=== PATIENT | male | born 1950 | race American Indian/Alaskan Native ===

== ENCOUNTER 2018-06-14 10:54 | Inpatient (IN) | payer BC, MEDICARE ==
--- NOTE | 2018-06-14 12:54 | Emergency Department Report ---
ED General Adult HPI - General Chief complaint: Weakness Stated complaint: GENERAL WEAKNESS Time Seen by Provider: 06/14/18 11:43 Source: patient, EMS Mode of arrival: Stretcher Limitations: Physical Limitation - History of Present Illness Initial comments: Patient presents to the emergency department with a chief complaint of right- sided weakness that started on Thursday evening. Patient also has some slurred speech. -: Sudden Severity scale (0 -10): 0 Consistency: constant Improves with: none Worsens with: none Associated Symptoms: denies other symptoms Treatments Prior to Arrival: none - Related Data Allergies Allergy/AdvReac Type Severity Reaction Status Date / Time No Known Allergies Allergy Unverified 06/14/18 11:14 ED Review of Systems ROS: Stated complaint: GENERAL WEAKNESS Other details as noted in HPI Comment: All other systems reviewed and negative Constitutional: denies: chills, fever Eyes: denies: eye pain, eye discharge, vision change ENT: denies: ear pain, throat pain Respiratory: denies: cough, shortness of breath, wheezing Cardiovascular: denies: chest pain, palpitations Endocrine: no symptoms reported Gastrointestinal: denies: abdominal pain, nausea, diarrhea Genitourinary: denies: urgency, dysuria Musculoskeletal: denies: back pain, joint swelling, arthralgia Skin: denies: rash, lesions Neurological: weakness. denies: headache, paresthesias Psychiatric: denies: anxiety, depression Hematological/Lymphatic: denies: easy bleeding, easy bruising ED Past Medical Hx - Past Medical History Previous Medical History?: Yes Hx Diabetes: Yes - Surgical History Past Surgical History?: Yes Additional Surgical History: Left BKA - Social History Smoking Status: Never Smoker Substance Use Type: Alcohol ED Physical Exam - General Limitations: Physical Limitation General appearance: alert, in no apparent distress, other (slurred speech ) - Head Head exam: Present: atraumatic, normocephalic - Eye Eye exam: Present: normal appearance, PERRL, EOMI - ENT ENT exam: Present: mucous membranes moist - Neck Neck exam: Present: normal inspection - Respiratory Respiratory exam: Present: normal lung sounds bilaterally. Absent: respiratory distress, wheezes, rales - Cardiovascular Cardiovascular Exam: Present: regular rate, normal rhythm. Absent: systolic murmur, diastolic murmur, rubs, gallop - GI/Abdominal GI/Abdominal exam: Present: soft, normal bowel sounds. Absent: distended, tenderness - Rectal Rectal exam: Present: deferred - Extremities Exam Extremities exam: Present: other (left BKA) - Back Exam Back exam: Present: normal inspection - Neurological Exam Neurological exam: Present: alert, oriented X3, other (4/5 strength of the right upper and lower extremities). Absent: motor sensory deficit - Psychiatric Psychiatric exam: Present: normal affect, normal mood - Skin Skin exam: Present: warm, dry, intact, normal color. Absent: rash ED Course Vital Signs 06/14/18 06/14/18 06/14/18 11:11 11:17 11:31 Temperature 98.2 F Pulse Rate 65 61 59 L Respiratory 18 17 13 Rate Blood Pressure 136/68 136/67 148/50 O2 Sat by Pulse 98 97 96 Oximetry 06/14/18 06/14/18 06/14/18 12:01 12:31 13:29 Temperature Pulse Rate 62 68 67 Respiratory 17 19 11 L Rate Blood Pressure 158/52 167/60 148/50 O2 Sat by Pulse 94 98 Oximetry 06/14/18 06/14/18 13:31 14:00 Temperature Pulse Rate 69 65 Respiratory 14 15 Rate Blood Pressure 157/113 O2 Sat by Pulse Oximetry ED Medical Decision Making - Lab Data Result diagrams: 06/14/18 13:09 06/14/18 13:12 Lab Results 06/14/18 06/14/18 06/14/18 Range/Units 13:09 13:09 13:12 WBC 7.6 (4.5-11.0) K/mm3 RBC 4.54 (3.65-5.03) M/mm3 Hgb 14.9 (11.8-15.2) gm/dl Hct 44.2 (35.5-45.6) % MCV 97 H (84-94) fl MCH 33 H (28-32) pg MCHC 34 (32-34) % RDW 12.7 L (13.2-15.2) % Plt Count 177 (140-440) K/mm3 Lymph % (Auto) 28.3 (13.4-35.0) % [place] % (Auto) 7.2 (0.0-7.3) % Eos % (Auto) 1.4 (0.0-4.3) % Baso % (Auto) 1.0 (0.0-1.8) % Lymph # 2.1 (1.2-5.4) K/mm3 [place] # 0.5 (0.0-0.8) K/mm3 Eos # 0.1 (0.0-0.4) K/mm3 Baso # 0.1 (0.0-0.1) K/mm3 Seg Neutrophils % 62.1 (40.0-70.0) % Seg Neutrophils # 4.7 (1.8-7.7) K/mm3 PT 13.8 (12.2-14.9) Sec. INR 1.00 (0.87-1.13) APTT 24.2 (24.2-36.6) Sec. Sodium (137-145) mmol/L Potassium (3.6-5.0) mmol/L Chloride (98-107) mmol/L Carbon Dioxide (22-30) mmol/L Anion Gap mmol/L BUN (9-20) mg/dL Creatinine (0.8-1.5) mg/dL Estimated GFR ml/min BUN/Creatinine Ratio % Glucose (75-100) mg/dL Calcium (8.4-10.2) mg/dL Total Bilirubin (0.1-1.2) mg/dL AST (5-40) units/L ALT (7-56) units/L Alkaline Phosphatase (35-129) units/L NT-Pro-B Natriuret Pep (0-900) pg/mL Total Protein (6.3-8.2) g/dL Albumin (3.9-5) g/dL Albumin/Globulin Ratio % Urine Color Yellow (Yellow) Urine Turbidity Slightly-cloudy (Clear) Urine pH 5.0 (5.0-7.0) Ur Specific [place] 1.022 (1.003-1.030) Urine Protein 100 mg/dl (Negative) mg/dL Urine Glucose (UA) >=500 (Negative) mg/dL Urine Ketones Tr (Negative) mg/dL Urine Blood Neg (Negative) Urine Nitrite Neg (Negative) Urine Bilirubin Neg (Negative) Urine Urobilinogen 2.0 (<2.0) mg/dL Ur Leukocyte Esterase Sm (Negative) Urine WBC (Auto) 20.0 H (0.0-6.0) /HPF Urine RBC (Auto) < 1.0 (0.0-6.0) /HPF Urine Bacteria (Auto) 1+ (Negative) /HPF Urine Mucus Few /HPF 06/14/18 06/14/18 Range/Units 13:12 13:12 WBC (4.5-11.0) K/mm3 RBC (3.65-5.03) M/mm3 Hgb (11.8-15.2) gm/dl Hct (35.5-45.6) % MCV (84-94) fl MCH (28-32) pg MCHC (32-34) % RDW (13.2-15.2) % Plt Count (140-440) K/mm3 Lymph % (Auto) (13.4-35.0) % [place] % (Auto) (0.0-7.3) % Eos % (Auto) (0.0-4.3) % Baso % (Auto) (0.0-1.8) % Lymph # (1.2-5.4) K/mm3 [place] # (0.0-0.8) K/mm3 Eos # (0.0-0.4) K/mm3 Baso # (0.0-0.1) K/mm3 Seg Neutrophils % (40.0-70.0) % Seg Neutrophils # (1.8-7.7) K/mm3 PT (12.2-14.9) Sec. INR (0.87-1.13) APTT (24.2-36.6) Sec. Sodium 136 L (137-145) mmol/L Potassium 4.3 (3.6-5.0) mmol/L Chloride 99.2 (98-107) mmol/L Carbon Dioxide 26 (22-30) mmol/L Anion Gap 15 mmol/L BUN 14 (9-20) mg/dL Creatinine 1.3 (0.8-1.5) mg/dL Estimated GFR > 60 ml/min BUN/Creatinine Ratio 11 % Glucose 344 H (75-100) mg/dL Calcium 9.2 (8.4-10.2) mg/dL Total Bilirubin 1.00 (0.1-1.2) mg/dL AST 13 (5-40) units/L ALT 15 (7-56) units/L Alkaline Phosphatase 82 (35-129) units/L NT-Pro-B Natriuret Pep 250.3 (0-900) pg/mL Total Protein 7.5 (6.3-8.2) g/dL Albumin 3.8 L (3.9-5) g/dL Albumin/Globulin Ratio 1.0 % Urine Color (Yellow) Urine Turbidity (Clear) Urine pH (5.0-7.0) Ur Specific [place] (1.003-1.030) Urine Protein (Negative) mg/dL Urine Glucose (UA) (Negative) mg/dL Urine Ketones (Negative) mg/dL Urine Blood (Negative) Urine Nitrite (Negative) Urine Bilirubin (Negative) Urine Urobilinogen (<2.0) mg/dL Ur Leukocyte Esterase (Negative) Urine WBC (Auto) (0.0-6.0) /HPF Urine RBC (Auto) (0.0-6.0) /HPF Urine Bacteria (Auto) (Negative) /HPF Urine Mucus /HPF - EKG Data -: EKG Interpreted by Me EKG shows normal: sinus rhythm Rate: normal - Radiology Data Radiology results: report reviewed Discussed results with patient Critical care attestation.: If time is entered above; I have spent that time in minutes in the direct care of this critically ill patient, excluding procedure time. ED Disposition Clinical Impression: Weakness, Slurred speech Disposition: 09 OP ADMIT IP TO THIS HOSP Is pt being admited?: Yes Does the pt Need Aspirin: No Condition: Fair Referrals: PRIMARY CARE, [Referring] - 3-5 Days - Assessment Assessment Interval: Baseline - Level of Consciousness 1a. Level of Consciousness: alert/keenly responsive - LOC Questions 1b. LOC Questions: answers both correctly - LOC Command 1c. LOC Commands: performs tasks correctly - Best Gaze 2. Best Gaze: normal - Visual 3. Visual: no visual loss - Facial Palsy 4. Facial Palsy: normal symmetrical movement - Motor Arm 5a. Motor Arm Left: no drift 5b. Motor Arm Right: no drift - Motor Leg 6a. Motor Leg Left: no drift 6b. Motor Leg Right: no drift - Limb Ataxia 7. Limb Ataxia: absent - Sensory 8. Sensory: normal - Best Language 9. Best Language: mild/moderate aphasia - Dysarthria 10. Dysarthria: mild/moderate dysarthria - Extinction and Inattention 11. Extinction/Inattention: no abnormality - Scoring Total Score: 2 Stroke Severity: Minor Stroke
[2018-06-14 13:22] LABS: Basophils # (Auto) 0.1 K/mm3 (0.0-0.1); Eosinophils # (Auto) 0.1 K/mm3 (0.0-0.4); Eosinophils % (Auto) 1.4 % (0.0-4.3); Hematocrit 44.2 % (35.5-45.6); Hemoglobin 14.9 gm/dl (11.8-15.2); Lymphocytes # (Auto) 2.1 K/mm3 (1.2-5.4); Lymphocytes % (Auto) 28.3 % (13.4-35.0); Mean Corpuscular HGB Conc 34 % (32-34); Mean Corpuscular Volume 97 fl (84-94); Monocytes # (Auto) 0.5 K/mm3 (0.0-0.8); Monocytes % (Auto) 7.2 % (0.0-7.3); Platelet Count 177 K/mm3 (140-440); Red Blood Count 4.54 M/mm3 (3.65-5.03); Red Cell Distribution Width 12.7 % (13.2-15.2)
[2018-06-14 13:31] LABS: Bacteria,Urine 1+ /HPF (Negative); Bilirubin,Urine NEG (Negative); Blood,Urine NEG (Negative); Color,Urine Yellow (Yellow); Mucus,Urine FEW /HPF; RBC,Urine < 1.0 /HPF (0.0-6.0)
[2018-06-14 13:32] LABS: Partial Thromboplastin Time 24.2 Sec. (24.2-36.6)
[2018-06-14 13:37] LABS: Alanine Aminotransferase 15 units/L (7-56); Albumin 3.8 g/dL (3.9-5); BUN/Creatinine Ratio 11; Blood Urea Nitrogen 14 mg/dL (9-20); Calcium 9.2 mg/dL (8.4-10.2); Hemolysis Index 4
--- NOTE | 2018-06-14 14:03 | XRay Report ---
AP CHEST: HISTORY: Weakness AP view of the chest demonstrates a normal mediastinal and cardiac contour with clear lungs and normal bony and soft tissue structures. IMPRESSION: Unremarkable AP chest.
--- NOTE | 2018-06-14 14:05 | Cat Scan Report ---
PROCEDURE: CT HEAD/BRAIN WO CON TECHNIQUE: Computerized tomography of the head was performed without contrast material. CT DOSE LENGTH PRODUCT: 1035.5 mGy-cm. HISTORY: weakness COMPARISONS: None currently available. FINDINGS: Decreased attenuation regions in the periventricular and subcortical white matter are nonspecific and may represent small vessel ischemic disease, encephalopathy, edema, or a demyelinating process. Smal l vessel ischemic disease (leukoaraiosis) favored. Chronic lacunar infarct in the right caudate head. Vascular calcifications. There is no evidence for acute ischemia. There is no hemorrhage. There is no midline shift. There is no hydrocephalus. There is no mass. Age appropriate rankin-white matter attenuation is noted. There is no calvarial fracture. The temporal bones demonstrate aerated mastoid air cells. The middle ears appear unremarkable. Paranasal sinuses are unremarkable. Globes are intact. IMPRESSION: * No acute intracranial findings. * Chronic ischemic disease. This document is electronically signed by Bairon Teran MD., June 14 2018 02:03:16 PM ET
[2018-06-14] MEDS ORDERED: ASPIRIN PO ONE (14:18)
[2018-06-14] MEDS ORDERED: BABY ASPIRIN ONE (14:55)
--- NOTE | 2018-06-14 16:00 | History and Physical Report ---
History of Present Illness Date of examination: 06/14/18 Medications and Allergies Allergies Allergy/AdvReac Type Severity Reaction Status Date / Time No Known Allergies Allergy Unverified 06/14/18 11:14 Exam - Constitutional Vitals: Temp Pulse Resp BP Pulse Ox 98.2 F 65 15 157/113 98 06/14/18 11:11 06/14/18 14:00 06/14/18 14:00 06/14/18 13:31 06/14/18 12:31 Results - Labs CBC & Chem 7: 06/14/18 13:09 06/14/18 13:12 Labs: Laboratory Last Values WBC 7.6 K/mm3 (4.5-11.0) 06/14/18 13:09 RBC 4.54 M/mm3 (3.65-5.03) 06/14/18 13:09 Hgb 14.9 gm/dl (11.8-15.2) 06/14/18 13:09 Hct 44.2 % (35.5-45.6) 06/14/18 13:09 MCV 97 fl (84-94) H 06/14/18 13:09 MCH 33 pg (28-32) H 06/14/18 13:09 MCHC 34 % (32-34) 06/14/18 13:09 RDW 12.7 % (13.2-15.2) L 06/14/18 13:09 Plt Count 177 K/mm3 (140-440) 06/14/18 13:09 Lymph % (Auto) 28.3 % (13.4-35.0) 06/14/18 13:09 [place] % (Auto) 7.2 % (0.0-7.3) 06/14/18 13:09 Eos % (Auto) 1.4 % (0.0-4.3) 06/14/18 13:09 Baso % (Auto) 1.0 % (0.0-1.8) 06/14/18 13:09 Lymph # 2.1 K/mm3 (1.2-5.4) 06/14/18 13:09 [place] # 0.5 K/mm3 (0.0-0.8) 06/14/18 13:09 Eos # 0.1 K/mm3 (0.0-0.4) 06/14/18 13:09 Baso # 0.1 K/mm3 (0.0-0.1) 06/14/18 13:09 Seg Neutrophils % 62.1 % (40.0-70.0) 06/14/18 13:09 Seg Neutrophils # 4.7 K/mm3 (1.8-7.7) 06/14/18 13:09 PT 13.8 Sec. (12.2-14.9) 06/14/18 13:12 INR 1.00 (0.87-1.13) 06/14/18 13:12 APTT 24.2 Sec. (24.2-36.6) 06/14/18 13:12 Sodium 136 mmol/L (137-145) L 06/14/18 13:12 Potassium 4.3 mmol/L (3.6-5.0) 06/14/18 13:12 Chloride 99.2 mmol/L (98-107) 06/14/18 13:12 Carbon Dioxide 26 mmol/L (22-30) 06/14/18 13:12 Anion Gap 15 mmol/L 06/14/18 13:12 BUN 14 mg/dL (9-20) 06/14/18 13:12 Creatinine 1.3 mg/dL (0.8-1.5) 06/14/18 13:12 Estimated GFR > 60 ml/min 06/14/18 13:12 BUN/Creatinine Ratio 11 % 06/14/18 13:12 Glucose 344 mg/dL (75-100) H 06/14/18 13:12 Calcium 9.2 mg/dL (8.4-10.2) 06/14/18 13:12 Total Bilirubin 1.00 mg/dL (0.1-1.2) 06/14/18 13:12 AST 13 units/L (5-40) 06/14/18 13:12 ALT 15 units/L (7-56) 06/14/18 13:12 Alkaline Phosphatase 82 units/L (35-129) 06/14/18 13:12 NT-Pro-B Natriuret Pep 250.3 pg/mL (0-900) 06/14/18 13:12 Total Protein 7.5 g/dL (6.3-8.2) 06/14/18 13:12 Albumin 3.8 g/dL (3.9-5) L 06/14/18 13:12 Albumin/Globulin Ratio 1.0 % 06/14/18 13:12 Urine Color Yellow (Yellow) 06/14/18 13:09 Urine Turbidity Slightly-cloudy (Clear) 06/14/18 13:09 Urine pH 5.0 (5.0-7.0) 06/14/18 13:09 Ur Specific [place] 1.022 (1.003-1.030) 06/14/18 13:09 Urine Protein 100 mg/dl mg/dL (Negative) 06/14/18 13:09 Urine Glucose (UA) >=500 mg/dL (Negative) 06/14/18 13:09 Urine Ketones Tr mg/dL (Negative) 06/14/18 13:09 Urine Blood Neg (Negative) 06/14/18 13:09 Urine Nitrite Neg (Negative) 06/14/18 13:09 Urine Bilirubin Neg (Negative) 06/14/18 13:09 Urine Urobilinogen 2.0 mg/dL (<2.0) 06/14/18 13:09 Ur Leukocyte Esterase Sm (Negative) 06/14/18 13:09 Urine WBC (Auto) 20.0 /HPF (0.0-6.0) H 06/14/18 13:09 Urine RBC (Auto) < 1.0 /HPF (0.0-6.0) 06/14/18 13:09 Urine Bacteria (Auto) 1+ /HPF (Negative) 06/14/18 13:09 Urine Mucus Few /HPF 06/14/18 13:09
[2018-06-14] MEDS ORDERED: SODIUM CHLORIDE FLUSH SYRINGE 10 ML IV PRN ×2 (16:01→16:06)
[2018-06-14] MEDS ORDERED: TYLENOL PO PRN (16:01)
[2018-06-14] MEDS ORDERED: ZOFRAN IV PRN (16:01)
[2018-06-14] MEDS ORDERED: PERCOCET 5/325 PO PRN (16:03)
[2018-06-14] MEDS ORDERED: DILAUDID IV PRN (16:03)
[2018-06-14] MEDS ORDERED: D5NS 1,000 ML IV SCH (17:00)
--- NOTE | 2018-06-14 17:39 | Consultation ---
History of Present Illness Consult date: 06/14/18 Chief complaint: right sided weakness History of present illness: This is a 68 YO M with a history of DM and htn who presented to the ED with r ight sided weakness, specifically his leg. Pt with left BKA, says he had trouble getting into his prosthesis with support on the right leg. Has not noticed weakness in the right arm or face. Denied slurred speech. Denied similar symptoms in the past. Past History Past Medical History: diabetes, hypertension Past Surgical History: Other (left BKA) Social history: Family history: hypertension Medications and Allergies Allergies Allergy/AdvReac Type Severity Reaction Status Date / Time No Known Allergies Allergy Unverified 06/14/18 11:14 Home Medications Medication Instructions Recorded Confirmed Last Taken Type Aspirin EC [Aspirin Enteric Coated 81 mg PO QDAY 06/14/18 06/14/18 Unknown History TAB] Clopidogrel [Plavix] 75 mg PO QDAY 06/14/18 06/14/18 Unknown History Glimepiride [Amaryl] 2 mg PO BID 06/14/18 06/14/18 Unknown History Metformin HCl [Glucophage] 1,000 mg PO BID 06/14/18 06/14/18 Unknown History Pravastatin [Pravachol] 40 mg PO DAILY 06/14/18 06/14/18 Unknown History Quinapril HCl [Accupril] 40 mg PO BID 06/14/18 06/14/18 Unknown History Tamsulosin [Flomax] 0.4 mg PO QDAY 06/14/18 06/14/18 Unknown History Vitamin B Complex/Folic Acid 2 each PO DAILY 06/14/18 06/14/18 Unknown History [B-Complex Tablet] amLODIPine [Norvasc] 10 mg PO DAILY 06/14/18 06/14/18 Unknown History hydrALAZINE [Apresoline TAB] 100 mg PO TID 06/14/18 06/14/18 Unknown History Active Meds: Active Medications Acetaminophen (Tylenol) 650 mg PO Q4H PRN PRN Reason: Pain MILD(1-3)/Fever >100.5/CHAPIN Aspirin (Aspirin) 325 mg PO QDAY FRANCOIS Atorvastatin Calcium (Lipitor) 40 mg PO QHS FRANCOIS Enoxaparin Sodium (Lovenox) 40 mg SUB-Q QDAY FRANCOIS Hydromorphone HCl (Dilaudid) 0.5 mg IV Q3H PRN PRN Reason: Pain , Severe (7-10) Sodium Chloride (Nacl 0.9% 1000 Ml) 1,000 mls @ 75 mls/hr IV DIRECT FRANCOIS Ondansetron HCl (Zofran) 4 mg IV Q8H PRN PRN Reason: Nausea And Vomiting Oxycodone/Acetaminophen (Percocet 5/325) 1 tab PO Q6H PRN PRN Reason: Pain, Moderate (4-6) Sodium Chloride (Sodium Chloride Flush Syringe 10 Ml) 10 ml IV BID FRANCOIS Sodium Chloride (Sodium Chloride Flush Syringe 10 Ml) 10 ml IV PRN PRN PRN Reason: LINE FLUSH Sodium Chloride (Sodium Chloride Flush Syringe 10 Ml) 10 ml INJ PRN PRN PRN Reason: LINE FLUSH Review of Systems Musculoskeletal: muscle weakness Physical Examination - Vital Signs Vital Signs: Vital Signs Temp Pulse Resp BP Pulse Ox 98.2 F 65 18 136/68 98 06/14/18 11:11 06/14/18 11:11 06/14/18 11:11 06/14/18 11:11 06/14/18 11:11 - Constitutional General appearance: comfortable - EENT EENT: Present: PERRL, mucous membranes moist, mucous membranes dry, vision intact - Respiratory Respiratory: Present: lungs clear - Cardiovascular Cardiovascular: Present: regular rate - Gastrointestinal Gastrointestinal: Present: normoactive bowel sounds - Integumentary Integumentary: Present: normal - Neurologic Cranial nerve examination: PERRL, EOMI, V1/V2/V3 grossly intact, face symmetric, tongue midline Speech examination: intact Motor examination - right side: 4/5: biceps, triceps, wrist flexion, wrist extension, assembler for puller over machine, hip flexors, knee extensors, dorsiflexion, toe extension (EHL), plantarflexion Motor examination - left side: 5/5: biceps, triceps, wrist flexion, wrist extension, assembler for puller over machine, hip flexors, knee extensors Detailed sensory examination: light touch, temperature Reflexes: 0: ankle, bicep, knee, tricep - Level of Consciousness 1a. Level of Consciousness: alert/keenly responsive - LOC Questions 1b. LOC Questions: answers both correctly - LOC Command 1c. LOC Commands: performs tasks correctly - Best Gaze 2. Best Gaze: normal - Visual 3. Visual: no visual loss - Facial Palsy 4. Facial Palsy: normal symmetrical movement - Motor Arm 5a. Motor Arm Left: no drift 5b. Motor Arm Right: drift - Motor Leg 6a. Motor Leg Left: amputation/joint fusion 6b. Motor Leg Right: drift - Limb Ataxia 7. Limb Ataxia: present 1 limb - Sensory 8. Sensory: normal - Best Language 9. Best Language: no aphasia - Dysarthria 10. Dysarthria: normal - Extinction and Inattention 11. Extinction/Inattention: no abnormality - Scoring Total Score: 3 Stroke Severity: Minor Stroke Results - Laboratory Findings CBC and BMP: 06/14/18 13:09 06/14/18 13:12 Abnormal Lab Findings: Abnormal Labs 06/14/18 06/14/18 06/14/18 13:09 13:09 13:12 MCV 97 H MCH 33 H RDW 12.7 L Sodium 136 L Glucose 344 H Albumin 3.8 L Urine WBC (Auto) 20.0 H - Diagnostic Findings Additional findings: Ct head- no hemorrhage, nothing acute Assessment and Plan This is a 68 YO M with right arm and leg weakness. No facial weakness appreciated. Denied back pain or radiating pain in his leg. Recommend: MRI Brain w/o adeel, if stroke is present would do stroke work up. If no stroke present consider MRI cervical spine. Pt with known severe diabetes, if all work up is negative might benefit from EMG/NCS outpatient to look for worsening neuropathy. Pt says he has been diagn osed with neuropathy. Continue care for all medical problems as you are doing. Continue aspirin, pl avix and pravachol.
--- NOTE | 2018-06-14 18:05 | Vascular Lab Report ---
PROCEDURE: VL CAROTID DUPLEX BILAT TECHNIQUE: Ultrasound carotid arteries with pulsed and color Doppler evaluation HISTORY: stroke COMPARISONS: FINDINGS: Right common carotid artery demonstrates normal sonographic appearance. Systolic velocity 108 cm/s an d diastolic velocity 10 cm/s. There is some plaque present at the carotid bulb. Normal flow velocities within the right ICA peak sy stolic velocity 66 cm/s and diastolic velocity 6 cm/s The right ECA is patent. Antegrade flow present within the right vertebral artery Left common carotid demonstrates normal sonographic appearance. Subfalcine 91 cm/s diastolic velocity 13 cm/s There is some plaque present at the left carotid bulb. The left ICA demonstrates normal flow velociti es peak systolic velocity 77 cm/s and diastolic velocity 14 cm/s There is flow present within the left ECA. Antegrade flow present within the left vertebral artery IMPRESSION: Some plaque present at both carotid bulbs estimated degree of stenosis less than 50% bilaterally. This document is electronically signed by Sterling Mae MD., June 14 2018 06:03:38 PM ET
[2018-06-14] MEDS: LOVENOX SUB-Q SCH (18:16)
[2018-06-14] MEDS: NACL 0.9% 1000 ML 1,000 ML IV SCH (18:16)
[2018-06-14] MEDS: SODIUM CHLORIDE FLUSH SYRINGE 10 ML IV SCH (21:39)
--- NOTE | 2018-06-15 05:18 | Event Note ---
Date: 06/14/18 See dictated H/p in reports Acute CVA T2DM Lt BKA
[2018-06-15 07:19] LABS: Basophils % (Auto) 0.5 % (0.0-1.8); Eosinophils # (Auto) 0.2 K/mm3 (0.0-0.4); Eosinophils % (Auto) 3.4 % (0.0-4.3); Hemoglobin 14.4 gm/dl (11.8-15.2); Lymphocytes # (Auto) 2.1 K/mm3 (1.2-5.4); Lymphocytes % (Auto) 29.4 % (13.4-35.0); Mean Corpuscular HGB Conc 34 % (32-34); Mean Corpuscular Volume 96 fl (84-94); Monocytes # (Auto) 0.6 K/mm3 (0.0-0.8); Platelet Count 164 K/mm3 (140-440); Red Blood Count 4.37 M/mm3 (3.65-5.03); Red Cell Distribution Width 12.7 % (13.2-15.2)
[2018-06-15 07:40] LABS: Alanine Aminotransferase 14 units/L (7-56); Albumin 3.4 g/dL (3.9-5); BUN/Creatinine Ratio 11; Blood Urea Nitrogen 13 mg/dL (9-20); Calcium 8.8 mg/dL (8.4-10.2); Chol/HDL Ratio 6.03 %; HDL Cholesterol 28 mg/dL (40-59); Hemolysis Index 5; LDL Cholesterol,Direct 129 mg/dL (50-130)
--- NOTE | 2018-06-15 08:00 | History and Physical Report ---
CHIEF COMPLAINT: Right-sided weakness. HISTORY OF PRESENT ILLNESS: A 66-year-old male with previous history of CVA and no weakness. Wakes up in the morning with right-sided weakness, both right upper and right lower extremities. The patient unable to stand. The patient has a left BKA. Apparently, the symptoms started two days ago on Thursday, but more symptoms since a.m. Hence seeking medical attention. No nausea, no vomiting. No nasal regurgitation of fluids. No diplopia. No blurred vision. No unsteadiness. PAST MEDICAL HISTORY: Significant for diabetes and hypertension. PAST SURGICAL HISTORY: Left BKA secondary to peripheral artery disease and diabetes. SOCIAL HISTORY: Used to be a smoker in the past and does not smoke anymore. Alcohol occasionally. FAMILY HISTORY: Significant for hypertension. REVIEW OF SYSTEMS: Right-sided weakness, upper and lower extremities. Tingling and numbness in the right lower extremity. Otherwise, review of systems negative. PHYSICAL EXAMINATION: GENERAL: Elderly male, cooperative during examination. VITAL SIGNS: Blood pressure is 136/68. Temperature is 98.2. Pulse is 65. Respiratory rate is 18. HEENT: Unremarkable. Pupils equal and reactive. NECK: Supple, no lymphadenopathy, no thyromegaly. LUNGS: Clear to auscultation and percussion. Good air entry. CARDIOVASCULAR SYSTEM: S1, S2 heard. No gallop, no murmur, no rub. Apical impulse in left fifth intercostal space in midclavicular line. ABDOMEN: Soft and benign. No hepatosplenomegaly. No guarding, no rigidity. Hernial orifices are normal. EXTREMITIES: Right-sided weakness present, 3/5 power in both right upper and right lower extremity. Left below knee amputation present. Pulse is felt normal in the right foot. The patient has left BKA. CENTRAL NERVOUS SYSTEM: As mentioned, right upper extremity and right lower extremity weakness 3/5 power. Sensory system is normal. Cranial systems are normal. No facial weakness. SKIN: Normal. LABORATORY DATA: White count is 7600, H and H is 14.9 and 44.2, platelet count is 177,000. Electrolytes are normal. Sodium is slightly low at 136, glucose is 344. A1c is 11.5, albumin is 3.8 and urine WBC is 20.0. ASSESSMENT AND PLAN: 1. Acute cerebrovascular accident workup initiated. MRI, MRA, carotid duplex scan, and echocardiogram ordered. Neurology consult requested. Physical therapy ordered. Occupation therapy ordered. 2. Uncontrolled diabetes, Lantus added 30 units at night time. Also, coverage. A1c is very high 11.5. The patient needs to be on Lantus and Humalog before each meal. 3. Urinary tract infection, treated with Rocephin. 4. Hypertension. Continue antihypertensives. 5. Coronary artery disease. Continue aspirin. 6. Benign prostatic hypertrophy. Continue tamsulosin. 7. Deep venous thrombosis prophylaxis, Lovenox 40 mg subcutaneous daily. JOB# [id number] VSM/NTS
[2018-06-15] MEDS: GLUCOPHAGE PO SCH ×2 (08:34→18:26)
[2018-06-15] MEDS: APRESOLINE PO SCH ×3 (08:34→22:06)
[2018-06-15] MEDS ORDERED: VITAMIN B COMPLEX PO SCH (10:00)
[2018-06-15] MEDS ORDERED: FOLIC ACID PO SCH (10:00)
[2018-06-15] MEDS ORDERED: QUINAPRIL HCL 40 MG PO SCH (10:00)
[2018-06-15] MEDS ORDERED: ASPIRIN PO SCH (10:00)
[2018-06-15] MEDS: ALLBEE WITH C PO SCH (10:14)
[2018-06-15] MEDS: HALFPRIN EC PO SCH (10:14)
[2018-06-15] MEDS: LOVENOX SUB-Q SCH (10:14)
[2018-06-15] MEDS: FLOMAX PO SCH (10:14)
[2018-06-15] MEDS: PLAVIX PO SCH (10:14)
[2018-06-15] MEDS: SODIUM CHLORIDE FLUSH SYRINGE 10 ML IV SCH ×2 (10:15→22:07)
[2018-06-15] MEDS: ZESTRIL PO SCH ×2 (10:15→22:06)
[2018-06-15] MEDS: LANTUS SUB-Q SCH (10:15)
[2018-06-15] MEDS: NORVASC PO SCH (10:15)
[2018-06-15] MEDS: HumaLOG SUB-Q SCH ×4 (10:16→22:07)
[2018-06-15] MEDS: ROCEPHIN/NS 2 GM/100 ML 2 GM/100 ML BAG IV SCH (10:51)
--- NOTE | 2018-06-15 15:18 | Progress Note ---
Assessment and Plan - Patient Problems (1) Acute CVA (cerebrovascular accident) Current Visit: Yes Status: Acute Plan to address problem: MRI result pending MRA RESULT PENDING SYMPTOMS IMPROVING (2) HTN (hypertension) Current Visit: Yes Status: Chronic Qualifiers: Hypertension type: essential hypertension Qualified Code(s): I10 - Essential (primary) hypertension Plan to address problem: Cont antihypertensives (3) IDDM (insulin dependent diabetes mellitus) Current Visit: Yes Status: Chronic Plan to address problem: COnt coverage (4) UTI (urinary tract infection) Current Visit: Yes Status: Acute (5) UTI (urinary tract infection) Current Visit: Yes Status: Acute Qualifiers: Urinary tract infection type: acute cystitis Plan to address problem: Cont IV Rocephin (6) CAD (coronary artery disease) Current Visit: Yes Status: Chronic Qualifiers: Associated angina: without angina Plan to address problem: Cont ASA and Plavix (7) BPH (benign prostatic hyperplasia) Current Visit: Yes Status: Chronic Qualifiers: Lower urinary tract symptom presence: symptoms present Plan to address problem: Cont Flomax (8) DVT prophylaxis Current Visit: Yes Status: Acute Plan to address problem: On Lovenox Subjective Date of service: 06/15/18 Principal diagnosis: Acute CVA Interval history: Rt side wakness improved--Near baseline Objective - Constitutional Vitals: Vital Signs - 12hr 06/15/18 06/15/18 06/15/18 04:07 07:26 09:15 Temperature 98.2 F 97.5 F L Pulse Rate 46 L 48 L 61 Respiratory 20 20 Rate Blood Pressure 161/78 183/77 O2 Sat by Pulse 92 92 Oximetry 06/15/18 06/15/18 10:15 11:08 Temperature 97.8 F Pulse Rate 51 L 67 Respiratory 20 Rate Blood Pressure 183/77 133/57 O2 Sat by Pulse 96 Oximetry General appearance: Present: no acute distress, well-nourished - EENT Eyes: PERRL, EOM intact ENT: hearing intact, clear oral mucosa Ears: bilateral: normal - Neck Neck: supple, normal ROM - Respiratory Respiratory effort: normal Respiratory: bilateral: CTA - Breasts Breasts: normal - Cardiovascular Heart rate: 78 Rhythm: regular Heart Sounds: Present: S1 & S2. Absent: gallop, rub Extremities: pulses intact, No edema, normal color, Full ROM - Gastrointestinal General gastrointestinal: Present: soft, non-tender, non-distended, normal bowel sounds - Genitourinary Male genitourinary: normal - Integumentary Integumentary: clear, warm, dry - Musculoskeletal Musculoskeletal: right sided weakness, other (L BKA) - Neurologic Neurologic: focal deficits - Psychiatric Psychiatric: memory intact, appropriate mood/affect, intact judgment & insight - Labs CBC & Chem 7: 06/15/18 06:39 06/15/18 06:39 Labs: Abnormal lab results 06/14/18 06/15/18 06/15/18 Range/Units 13:09 06:39 06:39 MCV 96 H (84-94) fl MCH 33 H (28-32) pg RDW 12.7 L (13.2-15.2) % [place] % (Auto) 9.0 H (0.0-7.3) % Glucose 283 H (75-100) mg/dL POC Glucose (70-105) Hemoglobin A1c 11.5 H (4-6) % Albumin 3.4 L (3.9-5) g/dL Triglycerides 201 H (2-149) mg/dL HDL Cholesterol 28 L (40-59) mg/dL 06/15/18 06/15/18 Range/Units 07:33 11:14 MCV (84-94) fl MCH (28-32) pg RDW (13.2-15.2) % [place] % (Auto) (0.0-7.3) % Glucose (75-100) mg/dL POC Glucose 255 H 275 H (70-105) Hemoglobin A1c (4-6) % Albumin (3.9-5) g/dL Triglycerides (2-149) mg/dL HDL Cholesterol (40-59) mg/dL
[2018-06-15] MEDS: NACL 0.9% 1000 ML 1,000 ML IV SCH (22:08)
--- NOTE | 2018-06-16 06:13 | Magnetic Resonance Report ---
PROCEDURE: MR BRAIN WO CON TECHNIQUE: Magnetic resonance imaging of the brain was performed without contrast material. HISTORY: stroke COMPARISONS: None . FINDINGS: Skull base and calvarium: Normal . Paranasal sinuses: The visualized paranasal sinuses are clear. Cerebellum: No evidence of hemorrhage, ischemia or mass . Brainstem: There is an old lacunar infarct in the darcy. . Cerebrum: Diffusion images demonstrate multifocal areas of high signal intensity in the parafalcine aspect of the left hemisphere consistent with recent infarcts. There is no hemorrhage, edema, mass, m ass effect or midline shift. There is chronic periventricular deep white matter ischemic gliosis and old deep white matter lacunar infarcts bilaterally. . Ventricles: There is moderate central and cortical atrophy. There is no hydrocephalus or asymmetry. . Pituitary gland and sella: Normal . Globes and orbits: Normal . Vasculature: Normal arterial and venous flow voids. IMPRESSION: Diffusion images demonstrate multifocal areas of high signal intensity in the parafalcine aspect of t he left hemisphere consistent with recent infarcts. There is no hemorrhage, edema, mass, mass effect or midline shift. There is chronic periventricular deep white matter ischemic gliosis and old deep white matter lacunar infarcts bilaterally. This document is electronically signed by Aubrey James MD., Jun 16 2018 06:11:17 AM ET
[2018-06-16] MEDS: HumaLOG SUB-Q SCH ×4 (09:32→22:55)
[2018-06-16] MEDS: FLOMAX PO SCH (10:13)
[2018-06-16] MEDS: ALLBEE WITH C PO SCH (10:13)
[2018-06-16] MEDS: HALFPRIN EC PO SCH (10:13)
[2018-06-16] MEDS: LOVENOX SUB-Q SCH (10:13)
[2018-06-16] MEDS: LANTUS SUB-Q SCH (10:14)
[2018-06-16] MEDS: NORVASC PO SCH (10:15)
[2018-06-16] MEDS: PLAVIX PO SCH (10:15)
[2018-06-16] MEDS: ZESTRIL PO SCH ×2 (10:16→23:26)
[2018-06-16] MEDS: ROCEPHIN/NS 2 GM/100 ML 2 GM/100 ML BAG IV SCH (10:17)
[2018-06-16] MEDS: SODIUM CHLORIDE FLUSH SYRINGE 10 ML IV SCH ×2 (10:47→22:50)
[2018-06-16] MEDS: NACL 0.9% 1000 ML 1,000 ML IV SCH (12:30)
--- NOTE | 2018-06-16 13:00 | Magnetic Resonance Report ---
PROCEDURE: MR MRA HEAD WO CON TECHNIQUE: MRA examination of the brain without IV contrast HISTORY: stroke COMPARISONS: Head CT 06/05/2018 FINDINGS: Note: Assessment of carotid artery stenosis is based on measurement of the distal internal carotid a rtery diameter as the denominator for stenosis calculations and the [place] Symptomatic Caroti d Endarterectomy Trial (NASCET) stenosis criteria. Intracranial vessels: Carotid siphon: Normal. Anterior cerebral: Image artifact across the proximal aspect of the A2 segments bilaterally. Middle cerebral: Nonspecific short segment approximately 50% diameter narrowing in the right M1 segme nt. This is also noted on the left side with slightly longer involvement. Slight atherosclerotic irre gularity in the proximal M2 segment bilaterally. Posterior cerebral: Suggestion of atherosclerotic arterial wall irregularity in distal yarn salvager bilateral ly. Suggestion of multifocal stenosis in mid left HAT LINER on 3-D image reconstructions but no evidence of such on source images. This is likely 3-D reconstruction artifact. Vertebral: Normal. Basilar: Normal. Occlusion: None. Vascular malformations: None. Aneurysm: None. IMPRESSION: Findings suggest approximately 50% diameter narrowing in the MCA M1 segment bilaterally. This may ref lect atherosclerotic change. Other considerations include stenosis and/or vasospasm Atherosclerotic wall irregularity in the proximal MCA M2 segments bilaterally This document is electronically signed by Jr Kuhn MD., Jun 16 2018 12:58:30 PM ET
[2018-06-16] MEDS: GLUCOPHAGE PO SCH ×2 (14:32→18:57)
[2018-06-16] MEDS: APRESOLINE PO SCH ×3 (14:33→20:50)
--- NOTE | 2018-06-17 08:09 | Progress Note ---
Assessment and Plan - Patient Problems (1) Acute CVA (cerebrovascular accident) Current Visit: Yes Status: Acute Plan to address problem: MRI L hemispheric infarcts-acute May d/c home tomorrow if PT clears Near baseline MRA 50 percent L MCA blockage-vascular surgery consult SYMPTOMS IMPROVING (2) HTN (hypertension) Current Visit: Yes Status: Chronic Qualifiers: Hypertension type: essential hypertension Qualified Code(s): I10 - Essential (primary) hypertension Plan to address problem: Cont antihypertensives (3) IDDM (insulin dependent diabetes mellitus) Current Visit: Yes Status: Chronic Plan to address problem: COnt coverage (4) UTI (urinary tract infection) Current Visit: Yes Status: Acute Qualifiers: Urinary tract infection type: acute cystitis Plan to address problem: Cont IV Rocephin (5) CAD (coronary artery disease) Current Visit: Yes Status: Chronic Qualifiers: Associated angina: without angina Plan to address problem: Cont ASA and Plavix (6) BPH (benign prostatic hyperplasia) Current Visit: Yes Status: Chronic Qualifiers: Lower urinary tract symptom presence: symptoms present Plan to address problem: Cont Flomax (7) DVT prophylaxis Current Visit: Yes Status: Acute Plan to address problem: On Lovenox Subjective Date of service: 06/16/18 Principal diagnosis: Acute CVA Interval history: Rt side wakness improved--Near baseline Objective - Constitutional Vitals: Vital Signs - 12hr 06/16/18 06/16/18 06/16/18 22:00 23:11 23:26 Temperature 97.5 F L Pulse Rate 65 49 L 66 Pulse Rate [ 66 Apical] Respiratory 20 Rate Blood Pressure 139/64 153/78 O2 Sat by Pulse 94 Oximetry 06/17/18 06/17/18 06/17/18 03:45 06:00 07:44 Temperature 98.0 F 98.0 F Pulse Rate 56 L 56 L 58 L Pulse Rate [ Apical] Respiratory 20 18 Rate Blood Pressure 157/73 157/69 O2 Sat by Pulse 94 93 Oximetry General appearance: Present: no acute distress, well-nourished - EENT Eyes: PERRL, EOM intact ENT: hearing intact, clear oral mucosa Ears: bilateral: normal - Neck Neck: supple, normal ROM - Respiratory Respiratory effort: normal Respiratory: bilateral: CTA - Breasts Breasts: normal - Cardiovascular Rhythm: regular Heart Sounds: Present: S1 & S2. Absent: gallop, rub Extremities: pulses intact, No edema, normal color, Full ROM - Gastrointestinal General gastrointestinal: Present: soft, non-tender, non-distended, normal bowel sounds - Genitourinary Male genitourinary: normal - Integumentary Integumentary: clear, warm, dry - Musculoskeletal Musculoskeletal: right sided weakness (Near baseline 5-/5 power both rue and RLE) - Neurologic Neurologic: moves all extremities - Psychiatric Psychiatric: memory intact, appropriate mood/affect, intact judgment & insight - Labs CBC & Chem 7: 06/15/18 06:39 06/15/18 06:39 Labs: Abnormal lab results 06/16/18 06/16/18 06/17/18 Range/Units 08:41 20:54 08:06 POC Glucose 239 H 112 H 150 H (70-105) MRA IMPRESSION: Diffusion images demonstrate multifocal areas of high signal intensity in the parafalcine aspect of the left hemisphere consistent with rec ent infarcts. There is no hemorrhage, edema, mass, mass effect or midline shift. There is chronic periventricular deep white matter ischemic gliosis and old deep white matter lacunar infarcts bilaterally. ECHO EF 45 pecent MRA IMPRESSION: Findings suggest approximately 50% diameter narrowing in the MCA M1 segment bilaterally. This may reflect atherosclerotic change. Other considerations include stenosis and/or vasospasm Atherosclerotic wall irregularity in the proximal MCA M2 segments bilaterally This document is electronically signed by Jr Kuhn MD., Jun 16 2018 12:58:30 PM ET CDS IMPRESSION: Some plaque present at both carotid bulbs estimated degree of stenosis less than 50% bilaterally.
[2018-06-17] MEDS: GLUCOPHAGE PO SCH ×2 (08:34→17:30)
[2018-06-17] MEDS: APRESOLINE PO SCH ×3 (08:34→21:06)
[2018-06-17] MEDS: HumaLOG SUB-Q SCH ×4 (08:37→22:50)
[2018-06-17] MEDS: ROCEPHIN/NS 2 GM/100 ML 2 GM/100 ML BAG IV SCH (09:10)
[2018-06-17] MEDS: LANTUS SUB-Q SCH (09:11)
[2018-06-17] MEDS: FLOMAX PO SCH (09:12)
[2018-06-17] MEDS: ALLBEE WITH C PO SCH (09:12)
[2018-06-17] MEDS: PLAVIX PO SCH (09:12)
[2018-06-17] MEDS: ZESTRIL PO SCH ×2 (09:12→22:50)
[2018-06-17] MEDS: HALFPRIN EC PO SCH (09:12)
[2018-06-17] MEDS: NORVASC PO SCH (09:13)
[2018-06-17] MEDS: LOVENOX SUB-Q SCH (09:13)
[2018-06-17] MEDS: SODIUM CHLORIDE FLUSH SYRINGE 10 ML IV SCH ×2 (09:14→22:50)
--- NOTE | 2018-06-17 11:35 | Discharge Summary ---
Providers - Providers Date of Admission: 06/14/18 16:02 Date of discharge: 06/17/18 Attending physician: JOVANY HAYES 06/14/18 16:03 Consult to Physician [CONS] Routine Comment: Consulting Provider: KAROLINA BELLO Physician Instructions: Reason For Exam: Acute CVA 06/14/18 16:06 Occupational Therapy Evaluate and Treat [CONS] Routine Comment: Reason For Exam: Neuro deficits Physical Therapy Evaluation and Treat [CONS] Routine Comment: Reason For Exam: Neuro deficits Primary care physician: DAPHNIE PUCKETT Hospitalization Condition: Fair Procedures: MRA multifocal area in the left hemisphere consistent with recurrent infarct carotid ultrasound shows less than 50% stenosis MRI high signal intensity in the left hemisphere consistent with infarct as well as periventricular white matter disease. Hospital course: Patient's 68-year-old male with a history of previous [place] hypertension diabetes presents with an acute episode of right sided weakness and slurred speech. Patient mostly had generalized fatigue as well as slurred speech which corrected. Patient had previous CVA as well which he did have some weakness. Patient had physical therapy evaluation thought patient could continue rehabilitation. Patient goes to rehabilitation already for CVA as outpatient. He could continue this. I gave him the option of receiving therapy at home. Patient likely still go to have physical therapy and outpatient setting. Patient physician Dr. Daphnie Puckett patient blood pressure was optimized on his hospitalization by resuming home medications. He should also had optimal control of his diabetes. Continue aspirin and statin. Patient was also treated empirically for UTI and was discharged on by mouth antibiotics for 3 days. Disposition: DC-01 TO HOME OR SELFCARE - Discharge Diagnoses (1) Acute CVA (cerebrovascular accident) Status: Acute (2) Weakness Status: Acute (3) BPH (benign prostatic hyperplasia) Status: Chronic Qualifiers: Lower urinary tract symptom presence: symptoms present (4) CAD (coronary artery disease) Status: Chronic Qualifiers: Associated angina: without angina (5) HTN (hypertension) Status: Chronic Qualifiers: Hypertension type: essential hypertension Qualified Code(s): I10 - Essential (primary) hypertension Core Measure Documentation - Palliative Care Palliative Care/ Comfort Measures: Not Applicable - Core Measures Any of the following diagnoses?: stroke - Stroke Discharge Requirements Statin for LDL = or >70 mg/dl on DC: Yes Anticoag for atrial fib/atrial flutter: Yes Antithrombotic for ischemic stroke: Yes Exam - Constitutional Vitals: Temp Pulse Resp BP Pulse Ox 98.0 F 66 18 157/69 93 06/17/18 07:44 06/17/18 10:00 06/17/18 07:44 06/17/18 09:13 06/17/18 07:44 General appearance: Present: no acute distress, well-nourished - EENT Eyes: Present: PERRL ENT: hearing intact, clear oral mucosa - Neck Neck: Present: supple, normal ROM - Respiratory Respiratory effort: normal Respiratory: bilateral: CTA - Cardiovascular Heart Sounds: Present: S1 & S2. Absent: rub, click - Extremities Extremities: pulses symmetrical, No edema Peripheral Pulses: within normal limits - Abdominal General gastrointestinal: Present: soft, non-tender, non-distended, normal bowel sounds Male genitourinary: Present: normal - Integumentary Integumentary: Present: clear, warm, dry - Musculoskeletal Musculoskeletal: generalized weakness, other (BKA) - Psychiatric Psychiatric: appropriate mood/affect, intact judgment & insight - Neurologic Neurologic: CNII-XII intact, moves all extremities Plan Activity: up only with assistance Diet: low cholesterol Special Instructions: record daily BP diary, follow up in rehab, home health RN Follow up with: PRIMARY CARE, [Referring] - 3-5 Days Prescriptions: Quinapril HCl [Accupril] 40 mg PO BID #30 tablet Glimepiride [Amaryl] 2 mg PO BID #30 tablet hydrALAZINE [Apresoline TAB] 100 mg PO TID #90 tab Aspirin EC [Aspirin Enteric Coated TAB] 81 mg PO QDAY #30 tablet Tamsulosin [Flomax] 0.4 mg PO QDAY #30 capsule Metformin HCl [Glucophage] 1,000 mg PO BID #30 tablet AtorvaSTATin [Lipitor] 40 mg PO QHS #30 tablet amLODIPine [Norvasc] 10 mg PO DAILY #30 tablet Clopidogrel [Plavix] 75 mg PO QDAY #30 tablet
[2018-06-17] MEDS ORDERED: DULCOLAX PO PRN (16:13)
--- NOTE | 2018-06-18 09:33 | Event Note ---
Date: 06/18/18June go was canceled patient decided to go to inpatient rehabilitation
--- NOTE | 2018-06-18 09:37 | Discharge Summary ---
Providers - Providers Date of Admission: 06/14/18 16:02 Date of discharge: 06/18/18 Attending physician: JOVANY HAYES 06/14/18 16:03 Consult to Physician [CONS] Routine Comment: Consulting Provider: KAROLINA BELLO Physician Instructions: Reason For Exam: Acute CVA 06/14/18 16:06 Occupational Therapy Evaluate and Treat [CONS] Routine Comment: Reason For Exam: Neuro deficits Physical Therapy Evaluation and Treat [CONS] Routine Comment: Reason For Exam: Neuro deficits 06/17/18 17:14 Consult to Case Management [CONS] Routine Services Needed at Discharge: Physical Therapy Notified:: hospice case managerlandscape manager physician: DAPHNIE PUCKETT Hospitalization Condition: Fair Pertinent studies: MRI MRA showed diffuse multilevel areas of high intensity in the left hemisphere consistent with recent infarct. Head CT which showed chronic ischemia lacunar infarcts. MRI also showed periventricular white matter disease. Hospital course: Patient presented with right on right leg weakness. Patient had initial left BKA. Was noted to have generalized weakness and difficulty putting on prosthesis. Patient was admitted for stroke workup and found to have a subacute CVA as cause for his weakness. Patient had extensive stroke workup MRI MRA carotid ultrasound which showed less than 50% stenosis. Patient was then cleared for inpatient rehabilitation and will be transferred to inpatient rehabilitation therapy for. Patient appears to have good rehabilitation potential. Somewhat complicated by left BKA and prosthesis. Disposition: DC-01 TO HOME OR SELFCARE - Discharge Diagnoses (1) Acute CVA (cerebrovascular accident) Status: Acute Comment: Patient placed on aspirin and Plavix statin. Cholesterol suboptimal control. Goal of LDL less than 70. We'll increase atorvastatin (2) Weakness Status: Acute Comment: Generalized weakness CVA also UTI may have played a role has been treated now. (3) BPH (benign prostatic hyperplasia) Status: Chronic Qualifiers: Lower urinary tract symptom presence: symptoms present Comment: Continue Flomax (4) CAD (coronary artery disease) Status: Chronic Qualifiers: Associated angina: without angina Comment: At present remains chest pain-free on Plavix aspirin antilipid agent. (5) HTN (hypertension) Status: Chronic Qualifiers: Hypertension type: essential hypertension Qualified Code(s): I10 - Essential (primary) hypertension Comment: Patient has optimal control with lisinopril 40 mg twice a day. We'll also provide renal protection. (6) IDDM (insulin dependent diabetes mellitus) Status: Chronic Comment: Patient diabetes has been suboptimally controlled for quite a while. Hemoglobin A1c was 11.5. We'll need to improve this to prevent further strokes and further cognitive deficits. I have titrated her Lantus up to 30 units. The rest can be done in the outpatient setting. (7) UTI (urinary tract infection) Status: Acute Qualifiers: Urinary tract infection type: acute cystitis Comment: Treated with Rocephin. Core Measure Documentation - Palliative Care Palliative Care/ Comfort Measures: Not Applicable - Core Measures Any of the following diagnoses?: stroke - Stroke Discharge Requirements Statin for LDL = or >70 mg/dl on DC: Yes Anticoag for atrial fib/atrial flutter: Not Applicable Antithrombotic for ischemic stroke: Yes Exam - Constitutional Vitals: Temp Pulse Resp BP Pulse Ox 97.9 F 64 18 132/61 96 06/18/18 04:03 06/18/18 06:00 06/18/18 04:03 06/18/18 04:03 06/18/18 04:03 General appearance: Present: no acute distress, well-nourished - EENT Eyes: Present: PERRL ENT: hearing intact, clear oral mucosa - Neck Neck: Present: supple, normal ROM - Respiratory Respiratory effort: normal Respiratory: bilateral: CTA - Cardiovascular Heart Sounds: Present: S1 & S2. Absent: rub, click - Extremities Extremities: pulses symmetrical, No edema Extremity abnormal: other (right sided weakness BKA or out of 5 weakness right upper extremity and lower extremity.) Peripheral Pulses: within normal limits - Abdominal General gastrointestinal: Present: soft, non-tender, non-distended, normal bowel sounds Male genitourinary: Present: normal - Integumentary Integumentary: Present: clear, warm, dry - Musculoskeletal Musculoskeletal: gait normal, strength equal bilaterally - Psychiatric Psychiatric: appropriate mood/affect, intact judgment & insight - Neurologic Neurologic: CNII-XII intact, moves all extremities Plan Activity: up only with assistance, fall precautions Weight Bearing Status: Weight Bear as Tolerated Diet: diabetic Special Instructions: record blood sugar diary, physical therapy Follow up with: PRIMARY CARE, [Referring] - 3-5 Days Prescriptions: Quinapril HCl [Accupril] 40 mg PO BID #30 tablet Glimepiride [Amaryl] 2 mg PO BID #30 tablet hydrALAZINE [Apresoline TAB] 100 mg PO TID #90 tab Aspirin EC [Aspirin Enteric Coated TAB] 81 mg PO QDAY #30 tablet Tamsulosin [Flomax] 0.4 mg PO QDAY #30 capsule Metformin HCl [Glucophage] 1,000 mg PO BID #30 tablet AtorvaSTATin [Lipitor] 40 mg PO QHS #30 tablet amLODIPine [Norvasc] 10 mg PO DAILY #30 tablet Clopidogrel [Plavix] 75 mg PO QDAY #30 tablet
[2018-06-18] MEDS: HumaLOG SUB-Q SCH ×4 (09:51→22:04)
[2018-06-18] MEDS: APRESOLINE PO SCH ×3 (11:16→20:08)
[2018-06-18] MEDS: GLUCOPHAGE PO SCH ×2 (11:16→17:03)
[2018-06-18] MEDS: ZESTRIL PO SCH ×2 (11:26→22:03)
[2018-06-18] MEDS: PLAVIX PO SCH (11:26)
[2018-06-18] MEDS: LOVENOX SUB-Q SCH (11:26)
[2018-06-18] MEDS: ALLBEE WITH C PO SCH (11:26)
[2018-06-18] MEDS: FLOMAX PO SCH (11:27)
[2018-06-18] MEDS: NORVASC PO SCH (11:27)
[2018-06-18] MEDS: HALFPRIN EC PO SCH (11:27)
[2018-06-18] MEDS: ROCEPHIN/NS 2 GM/100 ML 2 GM/100 ML BAG IV SCH (11:27)
[2018-06-18] MEDS: SODIUM CHLORIDE FLUSH SYRINGE 10 ML IV SCH ×2 (11:28→22:04)
[2018-06-18] MEDS: LANTUS SUB-Q SCH (11:28)
[2018-06-19] MEDS: HumaLOG SUB-Q SCH ×4 (09:38→21:02)
[2018-06-19] MEDS: ROCEPHIN/NS 2 GM/100 ML 2 GM/100 ML BAG IV SCH (10:31)
[2018-06-19] MEDS: LOVENOX SUB-Q SCH (10:31)
[2018-06-19] MEDS: ALLBEE WITH C PO SCH (10:31)
[2018-06-19] MEDS: PLAVIX PO SCH (10:32)
[2018-06-19] MEDS: GLUCOPHAGE PO SCH ×2 (10:32→17:15)
[2018-06-19] MEDS: FLOMAX PO SCH (10:32)
[2018-06-19] MEDS: LANTUS SUB-Q SCH (10:32)
[2018-06-19] MEDS: NORVASC PO SCH (10:32)
[2018-06-19] MEDS: APRESOLINE PO SCH ×3 (10:32→21:09)
[2018-06-19] MEDS: HALFPRIN EC PO SCH (10:32)
[2018-06-19] MEDS: ZESTRIL PO SCH ×2 (10:32→21:09)
--- NOTE | 2018-06-19 11:53 | Progress Note ---
Assessment and Plan Assessment and plan: Acute CVA. MRI L hemispheric infarcts-acute Patient for acute rehabilitation. Near baseline MRA 50 percent L MCA blockage-vascular surgery consulted Hypertension. Continue anti-process medications. Diabetes mellitus type 2. Continue Accu-Cheks and sliding scale insulin. UTI. Continue IV Rocephin. History of coronary artery disease. No chest pain. Stable. BPH. Continue Flomax. History Interval history: No new issues overnight. Hospitalist Physical - Constitutional Vitals: Temp Pulse Resp BP Pulse Ox 98.3 F 56 L 18 132/85 94 06/19/18 11:39 06/19/18 11:39 06/19/18 11:39 06/19/18 11:39 06/19/18 11:39 General appearance: Present: no acute distress, well-nourished - EENT Eyes: Present: PERRL, EOM intact ENT: hearing intact, clear oral mucosa, dentition normal - Neck Neck: Present: supple, normal ROM - Respiratory Respiratory effort: normal Respiratory: bilateral: CTA - Cardiovascular Rhythm: regular Heart Sounds: Present: S1 & S2. Absent: gallop, rub - Extremities Extremities: no ischemia, No edema, Full ROM - Abdominal General gastrointestinal: soft, non-tender, non-distended, normal bowel sounds - Integumentary Integumentary: Present: clear, warm, dry - Neurologic Neurologic: CNII-XII intact, moves all extremities Results - Labs CBC & Chem 7: 06/15/18 06:39 06/15/18 06:39 Labs: Laboratory Last Values WBC 7.0 K/mm3 (4.5-11.0) 06/15/18 06:39 RBC 4.37 M/mm3 (3.65-5.03) 06/15/18 06:39 Hgb 14.4 gm/dl (11.8-15.2) 06/15/18 06:39 Hct 42.0 % (35.5-45.6) 06/15/18 06:39 MCV 96 fl (84-94) H 06/15/18 06:39 MCH 33 pg (28-32) H 06/15/18 06:39 MCHC 34 % (32-34) 06/15/18 06:39 RDW 12.7 % (13.2-15.2) L 06/15/18 06:39 Plt Count 164 K/mm3 (140-440) 06/15/18 06:39 Lymph % (Auto) 29.4 % (13.4-35.0) 06/15/18 06:39 Ray % (Auto) 9.0 % (0.0-7.3) H 06/15/18 06:39 Eos % (Auto) 3.4 % (0.0-4.3) 06/15/18 06:39 Baso % (Auto) 0.5 % (0.0-1.8) 06/15/18 06:39 Lymph # 2.1 K/mm3 (1.2-5.4) 06/15/18 06:39 Ray # 0.6 K/mm3 (0.0-0.8) 06/15/18 06:39 Eos # 0.2 K/mm3 (0.0-0.4) 06/15/18 06:39 Baso # 0.0 K/mm3 (0.0-0.1) 06/15/18 06:39 Seg Neutrophils % 57.7 % (40.0-70.0) 06/15/18 06:39 Seg Neutrophils # 4.1 K/mm3 (1.8-7.7) 06/15/18 06:39 PT 13.8 Sec. (12.2-14.9) 06/14/18 13:12 INR 1.00 (0.87-1.13) 06/14/18 13:12 APTT 24.2 Sec. (24.2-36.6) 06/14/18 13:12 Sodium 140 mmol/L (137-145) 06/15/18 06:39 Potassium 4.0 mmol/L (3.6-5.0) 06/15/18 06:39 Chloride 103.2 mmol/L (98-107) 06/15/18 06:39 Carbon Dioxide 28 mmol/L (22-30) 06/15/18 06:39 Anion Gap 13 mmol/L 06/15/18 06:39 BUN 13 mg/dL (9-20) 06/15/18 06:39 Creatinine 1.2 mg/dL (0.8-1.5) 06/15/18 06:39 Estimated GFR > 60 ml/min 06/15/18 06:39 BUN/Creatinine Ratio 11 % 06/15/18 06:39 Glucose 283 mg/dL (75-100) H 06/15/18 06:39 POC Glucose 181 (70-105) H 06/18/18 20:21 Hemoglobin A1c 11.5 % (4-6) H 06/14/18 13:09 Calcium 8.8 mg/dL (8.4-10.2) 06/15/18 06:39 Total Bilirubin 1.00 mg/dL (0.1-1.2) 06/15/18 06:39 AST 12 units/L (5-40) 06/15/18 06:39 ALT 14 units/L (7-56) 06/15/18 06:39 Alkaline Phosphatase 76 units/L (35-129) 06/15/18 06:39 NT-Pro-B Natriuret Pep 250.3 pg/mL (0-900) 06/14/18 13:12 Total Protein 7.0 g/dL (6.3-8.2) 06/15/18 06:39 Albumin 3.4 g/dL (3.9-5) L 06/15/18 06:39 Albumin/Globulin Ratio 0.9 % 06/15/18 06:39 Triglycerides 201 mg/dL (2-149) H 06/15/18 06:39 Cholesterol 169 mg/dL (50-199) 06/15/18 06:39 LDL Cholesterol Direct 129 mg/dL (50-130) 06/15/18 06:39 HDL Cholesterol 28 mg/dL (40-59) L 06/15/18 06:39 Cholesterol/HDL Ratio 6.03 % 06/15/18 06:39 Urine Color Yellow (Yellow) 06/14/18 13:09 Urine Turbidity Slightly-cloudy (Clear) 06/14/18 13:09 Urine pH 5.0 (5.0-7.0) 06/14/18 13:09 Ur Specific [place] 1.022 (1.003-1.030) 06/14/18 13:09 Urine Protein 100 mg/dl mg/dL (Negative) 06/14/18 13:09 Urine Glucose (UA) >=500 mg/dL (Negative) 06/14/18 13:09 Urine Ketones Tr mg/dL (Negative) 06/14/18 13:09 Urine Blood Neg (Negative) 06/14/18 13:09 Urine Nitrite Neg (Negative) 06/14/18 13:09 Urine Bilirubin Neg (Negative) 06/14/18 13:09 Urine Urobilinogen 2.0 mg/dL (<2.0) 06/14/18 13:09 Ur Leukocyte Esterase Sm (Negative) 06/14/18 13:09 Urine WBC (Auto) 20.0 /HPF (0.0-6.0) H 06/14/18 13:09 Urine RBC (Auto) < 1.0 /HPF (0.0-6.0) 06/14/18 13:09 Urine Bacteria (Auto) 1+ /HPF (Negative) 06/14/18 13:09 Urine Mucus Few /HPF 06/14/18 13:09 Active Medications - Current Medications Current Medications: Generic Name Dose Route Start Last Admin Trade Name Freq PRN Reason Stop Dose Admin Acetaminophen 650 mg 06/14/18 16:01 Tylenol PO Q4H PRN Pain MILD(1-3)/Fever >100.5/CHAPIN Amlodipine Besylate 10 mg 06/15/18 10:00 06/19/18 10:32 Norvasc PO 10 mg DAILY FRANCOIS Administration Aspirin 81 mg 06/15/18 10:00 06/19/18 10:32 Halfprin Ec PO 81 mg QDAY FRANCOIS Administration Atorvastatin Calcium 40 mg 06/14/18 22:00 06/18/18 22:03 Lipitor PO 40 mg QHS FRANCOIS Administration Bisacodyl 10 mg 06/17/18 16:13 06/17/18 17:30 Dulcolax PO 10 mg QDAY PRN Administration Constipation Clopidogrel Bisulfate 75 mg 06/15/18 10:00 06/19/18 10:32 Plavix PO 75 mg QDAY FRANCOIS Administration Enoxaparin Sodium 40 mg 06/14/18 17:00 06/19/18 10:31 Lovenox SUB-Q 40 mg QDAY FRANCOIS Administration Hydralazine HCl 100 mg 06/15/18 08:00 06/19/18 10:32 Apresoline PO 100 mg TID FRANCOIS Administration Hydromorphone HCl 0.5 mg 06/14/18 16:03 Dilaudid IV Q3H PRN Pain , Severe (7-10) Sodium Chloride 1,000 mls @ 75 mls/hr 06/14/18 18:00 06/16/18 12:30 Nacl 0.9% 1000 Ml IV 75 mls/hr DIRECT FRANCOIS Administration Ceftriaxone Sodium 2 gm in 100 mls @ 200 mls/hr 06/15/18 10:00 06/19/18 10:31 Rocephin/Ns 2 Gm/100 Ml IV 200 mls/hr Q24HR FRANCOIS Administration Protocol Insulin Glargine 30 units 06/15/18 10:00 06/19/18 10:32 Lantus SUB-Q 30 units QAM FRANCOIS Administration Insulin Human Lispro 0 unit 06/15/18 07:30 06/19/18 09:38 Humalog SUB-Q Not Given [facility] Protocol Lisinopril 20 mg 06/15/18 10:00 06/19/18 10:32 Zestril PO 20 mg BID FRANCOIS Administration Metformin HCl 1,000 mg 06/15/18 08:00 06/19/18 10:32 Glucophage PO 1,000 mg BIDDIAB FRANCOIS Administration Ondansetron HCl 4 mg 06/14/18 16:01 Zofran IV Q8H PRN Nausea And Vomiting Oxycodone/Acetaminophen 1 tab 06/14/18 16:03 Percocet 5/325 PO Q6H PRN Pain, Moderate (4-6) Sodium Chloride 10 ml 06/14/18 22:00 06/18/18 22:04 Sodium Chloride Flush Syringe 10 Ml IV 10 ml BID FRANCOIS Administration Sodium Chloride 10 ml 06/14/18 16:06 Sodium Chloride Flush Syringe 10 Ml IV PRN PRN LINE FLUSH Tamsulosin HCl 0.4 mg 06/15/18 10:00 06/19/18 10:32 Flomax PO 0.4 mg QDAY FRANCOIS Administration Vitamin B Complex/Vitamin C 1 each 06/15/18 10:00 06/19/18 10:31 Allbee With C PO 1 each QDAY FRANCOIS Administration Nutrition/Malnutrition Assess - Dietary Evaluation Nutrition/Malnutrition Findings: Nutrition Notes Start: 06/15/18 10:51 Freq: Status: Active Protocol: Document 06/15/18 10:51 TW (Rec: 06/15/18 10:57 TW [id number]) Co-Sign 06/15/18 10:51 LP Nutrition Notes 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 Jaya Score: 17. Pt stated he is eating well, but he does not like the hospital food because its too cold and mushy . Pt stated his is going to be bringing in his food. Pt denied N/V/D and denied wt loss. Pt stated he ate most of his dinner last night. Nutrition Intervention Revisit per MD consult or patient Sign Off request:
[2018-06-19] MEDS: SODIUM CHLORIDE FLUSH SYRINGE 10 ML IV SCH ×2 (14:28→21:10)
[2018-06-20] MEDS: ROCEPHIN/NS 2 GM/100 ML 2 GM/100 ML BAG IV SCH (09:37)
[2018-06-20] MEDS: HumaLOG SUB-Q SCH ×4 (09:37→21:51)
[2018-06-20] MEDS: PLAVIX PO SCH (09:38)
[2018-06-20] MEDS: GLUCOPHAGE PO SCH ×2 (09:38→17:59)
[2018-06-20] MEDS: ZESTRIL PO SCH ×2 (09:39→21:50)
[2018-06-20] MEDS: HALFPRIN EC PO SCH (09:39)
[2018-06-20] MEDS: FLOMAX PO SCH (09:39)
[2018-06-20] MEDS: LOVENOX SUB-Q SCH (09:39)
[2018-06-20] MEDS: ALLBEE WITH C PO SCH (09:39)
[2018-06-20] MEDS: APRESOLINE PO SCH ×3 (09:39→21:50)
[2018-06-20] MEDS: NORVASC PO SCH (09:39)
[2018-06-20] MEDS: SODIUM CHLORIDE FLUSH SYRINGE 10 ML IV SCH ×2 (09:40→21:53)
[2018-06-20] MEDS: LANTUS SUB-Q SCH (09:40)
--- NOTE | 2018-06-20 11:25 | Progress Note ---
Assessment and Plan Assessment and plan: Acute CVA. MRI L hemispheric infarcts-acute Patient for acute rehabilitation. Near baseline MRA 50 percent L MCA blockage Hypertension. Continue anti-process medications. Diabetes mellitus type 2. Continue Accu-Cheks and sliding scale insulin. UTI. Continue IV Rocephin. History of coronary artery disease. No chest pain. Stable. BPH. Continue Flomax. Disposition. Await placement in acute rehabilitation. History Interval history: No new issues overnight. Hospitalist Physical - Constitutional Vitals: Temp Pulse Resp BP Pulse Ox 97.5 F L 57 L 18 162/72 95 06/20/18 07:47 06/20/18 07:47 06/20/18 07:47 06/20/18 07:47 06/20/18 07:47 General appearance: Present: no acute distress, well-nourished - EENT Eyes: Present: PERRL, EOM intact ENT: hearing intact, clear oral mucosa, dentition normal - Neck Neck: Present: supple, normal ROM - Respiratory Respiratory effort: normal Respiratory: bilateral: CTA - Cardiovascular Rhythm: regular Heart Sounds: Present: S1 & S2. Absent: gallop, rub - Extremities Extremities: no ischemia, No edema, Full ROM - Abdominal General gastrointestinal: soft, non-tender, non-distended, normal bowel sounds - Integumentary Integumentary: Present: clear, warm, dry - Neurologic Neurologic: CNII-XII intact, moves all extremities Results - Labs CBC & Chem 7: 06/15/18 06:39 06/15/18 06:39 Labs: Laboratory Last Values WBC 7.0 K/mm3 (4.5-11.0) 06/15/18 06:39 RBC 4.37 M/mm3 (3.65-5.03) 06/15/18 06:39 Hgb 14.4 gm/dl (11.8-15.2) 06/15/18 06:39 Hct 42.0 % (35.5-45.6) 06/15/18 06:39 MCV 96 fl (84-94) H 06/15/18 06:39 MCH 33 pg (28-32) H 06/15/18 06:39 MCHC 34 % (32-34) 06/15/18 06:39 RDW 12.7 % (13.2-15.2) L 06/15/18 06:39 Plt Count 164 K/mm3 (140-440) 06/15/18 06:39 Lymph % (Auto) 29.4 % (13.4-35.0) 06/15/18 06:39 [place] % (Auto) 9.0 % (0.0-7.3) H 06/15/18 06:39 Eos % (Auto) 3.4 % (0.0-4.3) 06/15/18 06:39 Baso % (Auto) 0.5 % (0.0-1.8) 06/15/18 06:39 Lymph # 2.1 K/mm3 (1.2-5.4) 06/15/18 06:39 [place] # 0.6 K/mm3 (0.0-0.8) 06/15/18 06:39 Eos # 0.2 K/mm3 (0.0-0.4) 06/15/18 06:39 Baso # 0.0 K/mm3 (0.0-0.1) 06/15/18 06:39 Seg Neutrophils % 57.7 % (40.0-70.0) 06/15/18 06:39 Seg Neutrophils # 4.1 K/mm3 (1.8-7.7) 06/15/18 06:39 PT 13.8 Sec. (12.2-14.9) 06/14/18 13:12 INR 1.00 (0.87-1.13) 06/14/18 13:12 APTT 24.2 Sec. (24.2-36.6) 06/14/18 13:12 Sodium 140 mmol/L (137-145) 06/15/18 06:39 Potassium 4.0 mmol/L (3.6-5.0) 06/15/18 06:39 Chloride 103.2 mmol/L (98-107) 06/15/18 06:39 Carbon Dioxide 28 mmol/L (22-30) 06/15/18 06:39 Anion Gap 13 mmol/L 06/15/18 06:39 BUN 13 mg/dL (9-20) 06/15/18 06:39 Creatinine 1.2 mg/dL (0.8-1.5) 06/15/18 06:39 Estimated GFR > 60 ml/min 06/15/18 06:39 BUN/Creatinine Ratio 11 % 06/15/18 06:39 Glucose 283 mg/dL (75-100) H 06/15/18 06:39 POC Glucose 128 (70-105) H 06/19/18 20:49 Hemoglobin A1c 11.5 % (4-6) H 06/14/18 13:09 Calcium 8.8 mg/dL (8.4-10.2) 06/15/18 06:39 Total Bilirubin 1.00 mg/dL (0.1-1.2) 06/15/18 06:39 AST 12 units/L (5-40) 06/15/18 06:39 ALT 14 units/L (7-56) 06/15/18 06:39 Alkaline Phosphatase 76 units/L (35-129) 06/15/18 06:39 NT-Pro-B Natriuret Pep 250.3 pg/mL (0-900) 06/14/18 13:12 Total Protein 7.0 g/dL (6.3-8.2) 06/15/18 06:39 Albumin 3.4 g/dL (3.9-5) L 06/15/18 06:39 Albumin/Globulin Ratio 0.9 % 06/15/18 06:39 Triglycerides 201 mg/dL (2-149) H 06/15/18 06:39 Cholesterol 169 mg/dL (50-199) 06/15/18 06:39 LDL Cholesterol Direct 129 mg/dL (50-130) 06/15/18 06:39 HDL Cholesterol 28 mg/dL (40-59) L 06/15/18 06:39 Cholesterol/HDL Ratio 6.03 % 06/15/18 06:39 Urine Color Yellow (Yellow) 06/14/18 13:09 Urine Turbidity Slightly-cloudy (Clear) 06/14/18 13:09 Urine pH 5.0 (5.0-7.0) 06/14/18 13:09 Ur Specific [place] 1.022 (1.003-1.030) 06/14/18 13:09 Urine Protein 100 mg/dl mg/dL (Negative) 06/14/18 13:09 Urine Glucose (UA) >=500 mg/dL (Negative) 06/14/18 13:09 Urine Ketones Tr mg/dL (Negative) 06/14/18 13:09 Urine Blood Neg (Negative) 06/14/18 13:09 Urine Nitrite Neg (Negative) 06/14/18 13:09 Urine Bilirubin Neg (Negative) 06/14/18 13:09 Urine Urobilinogen 2.0 mg/dL (<2.0) 06/14/18 13:09 Ur Leukocyte Esterase Sm (Negative) 06/14/18 13:09 Urine WBC (Auto) 20.0 /HPF (0.0-6.0) H 06/14/18 13:09 Urine RBC (Auto) < 1.0 /HPF (0.0-6.0) 06/14/18 13:09 Urine Bacteria (Auto) 1+ /HPF (Negative) 06/14/18 13:09 Urine Mucus Few /HPF 06/14/18 13:09 Active Medications - Current Medications Current Medications: Generic Name Dose Route Start Last Admin Trade Name Freq PRN Reason Stop Dose Admin Acetaminophen 650 mg 06/14/18 16:01 Tylenol PO Q4H PRN Pain MILD(1-3)/Fever >100.5/CHAPIN Amlodipine Besylate 10 mg 06/15/18 10:00 06/20/18 09:39 Norvasc PO 10 mg DAILY FRANCOIS Administration Aspirin 81 mg 06/15/18 10:00 06/20/18 09:39 Halfprin Ec PO 81 mg QDAY FRANCOIS Administration Atorvastatin Calcium 40 mg 06/14/18 22:00 06/19/18 21:09 Lipitor PO 40 mg QHS FRANCOIS Administration Bisacodyl 10 mg 06/17/18 16:13 06/17/18 17:30 Dulcolax PO 10 mg QDAY PRN Administration Constipation Clopidogrel Bisulfate 75 mg 06/15/18 10:00 06/20/18 09:38 Plavix PO 75 mg QDAY FRANCOIS Administration Enoxaparin Sodium 40 mg 06/14/18 17:00 06/20/18 09:39 Lovenox SUB-Q 40 mg QDAY FRANCOIS Administration Hydralazine HCl 100 mg 06/15/18 08:00 06/20/18 09:39 Apresoline PO 100 mg TID FRANCOIS Administration Hydromorphone HCl 0.5 mg 06/14/18 16:03 Dilaudid IV Q3H PRN Pain , Severe (7-10) Sodium Chloride 1,000 mls @ 75 mls/hr 06/14/18 18:00 06/16/18 12:30 Nacl 0.9% 1000 Ml IV 75 mls/hr DIRECT FRANCOIS Administration Ceftriaxone Sodium 2 gm in 100 mls @ 200 mls/hr 06/15/18 10:00 06/20/18 09:37 Rocephin/Ns 2 Gm/100 Ml IV 200 mls/hr Q24HR FRANCOIS Administration Protocol Insulin Glargine 30 units 06/15/18 10:00 06/20/18 09:40 Lantus SUB-Q 30 units QAM FRANCOIS Administration Insulin Human Lispro 0 unit 06/15/18 07:30 06/20/18 09:37 Humalog SUB-Q Not Given ACHS [facility] Protocol Lisinopril 20 mg 06/15/18 10:00 06/20/18 09:39 Zestril PO 20 mg BID FRANCOIS Administration Metformin HCl 1,000 mg 06/15/18 08:00 06/20/18 09:38 Glucophage PO 1,000 mg BIDDIAB FRANCOIS Administration Ondansetron HCl 4 mg 06/14/18 16:01 Zofran IV Q8H PRN Nausea And Vomiting Oxycodone/Acetaminophen 1 tab 06/14/18 16:03 Percocet 5/325 PO Q6H PRN Pain, Moderate (4-6) Sodium Chloride 10 ml 06/14/18 22:00 06/20/18 09:40 Sodium Chloride Flush Syringe 10 Ml IV 10 ml BID FRANCOIS Administration Sodium Chloride 10 ml 06/14/18 16:06 Sodium Chloride Flush Syringe 10 Ml IV PRN PRN LINE FLUSH Tamsulosin HCl 0.4 mg 06/15/18 10:00 06/20/18 09:39 Flomax PO 0.4 mg QDAY FRANCOIS Administration Vitamin B Complex/Vitamin C 1 each 06/15/18 10:00 06/20/18 09:39 Allbee With C PO 1 each QDAY FRANCOIS Administration Nutrition/Malnutrition Assess - Dietary Evaluation Nutrition/Malnutrition Findings: Nutrition Notes Start: 06/15/18 10:51 Freq: Status: Active Protocol: Document 06/15/18 10:51 TW (Rec: 06/15/18 10:57 TW [id number]) Co-Sign 06/15/18 10:51 LP Nutrition Notes 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 Jaya Score: 17. Pt stated he is eating well, but he does not like the hospital food because its too cold and mushy . Pt stated his is going to be bringing in his food. Pt denied N/V/D and denied wt loss. Pt stated he ate most of his dinner last night. Nutrition Intervention Revisit per MD consult or patient Sign Off request:
[2018-06-21] MEDS: HumaLOG SUB-Q SCH ×4 (07:30→23:09)
[2018-06-21] MEDS: SODIUM CHLORIDE FLUSH SYRINGE 10 ML IV SCH ×2 (10:00→23:11)
[2018-06-21] MEDS: ALLBEE WITH C PO SCH (10:38)
[2018-06-21] MEDS: LOVENOX SUB-Q SCH (10:38)
[2018-06-21] MEDS: HALFPRIN EC PO SCH (10:39)
[2018-06-21] MEDS: PLAVIX PO SCH (10:39)
[2018-06-21] MEDS: FLOMAX PO SCH (10:39)
[2018-06-21] MEDS: APRESOLINE PO SCH ×3 (10:39→20:53)
[2018-06-21] MEDS: ZESTRIL PO SCH ×3 (10:39→23:11)
[2018-06-21] MEDS: LANTUS SUB-Q SCH (10:39)
[2018-06-21] MEDS: NORVASC PO SCH (10:39)
[2018-06-21] MEDS: GLUCOPHAGE PO SCH ×2 (10:39→18:10)
[2018-06-21] MEDS: ROCEPHIN/NS 2 GM/100 ML 2 GM/100 ML BAG IV SCH (10:40)
--- NOTE | 2018-06-21 17:54 | Progress Note ---
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 On statin and aspirin and aggressive blood pressure control. Still awaiting [employer] insurance for transfer to inpatient rehabilitation. (2) Weakness Current Visit: Yes Status: Resolved (3) BPH (benign prostatic hyperplasia) Current Visit: Yes Status: Chronic Qualifiers: Lower urinary tract symptom presence: symptoms present Plan to address problem: Chronic no dysuria no hematuria. (4) CAD (coronary artery disease) Current Visit: Yes Status: Chronic Qualifiers: Associated angina: without angina Plan to address problem: Patient without chest pain. No evidence of angina at this time. (5) HTN (hypertension) Current Visit: Yes Status: Chronic Qualifiers: Hypertension type: essential hypertension Qualified Code(s): I10 - Essential (primary) hypertension Plan to address problem: Stable with amlodipine and hydralazine. Blood pressure continues to have fair control. (6) IDDM (insulin dependent diabetes mellitus) Current Visit: Yes Status: Chronic Plan to address problem: He has much better control of diabetes.since increase in long acting meds (7) UTI (urinary tract infection) Current Visit: Yes Status: Acute Qualifiers: Urinary tract infection type: acute cystitis History Interval history: No new changes over p.m. hospital course has been uncomplicated over last night. Hospitalist Physical - Constitutional Vitals: Temp Pulse Resp BP Pulse Ox 98.2 F 66 20 141/63 96 06/21/18 16:06 06/21/18 16:06 06/21/18 16:06 06/21/18 16:06 06/21/18 16:06 General appearance: Present: no acute distress, well-nourished - EENT Eyes: Present: PERRL, EOM intact ENT: hearing intact, clear oral mucosa, dentition normal - Neck Neck: Present: supple, normal ROM. Absent: enlarged thyroid, masses or JVD, cervical LAD - Extremities Extremities: no ischemia, pulses intact, pulses symmetrical - Abdominal General gastrointestinal: deferred, non-tender, non-distended, normal bowel so unds, no hepatomegaly, no splenomegaly, no mass - Integumentary Integumentary: Present: warm, dry, erythema - Psychiatric Psychiatric: appropriate mood/affect, intact judgment & insight, memory intact - Neurologic Neurologic: focal deficits, moves all extremities Results - Labs CBC & Chem 7: 06/15/18 06:39 06/15/18 06:39 Labs: Laboratory Last Values WBC 7.0 K/mm3 (4.5-11.0) 06/15/18 06:39 RBC 4.37 M/mm3 (3.65-5.03) 06/15/18 06:39 Hgb 14.4 gm/dl (11.8-15.2) 06/15/18 06:39 Hct 42.0 % (35.5-45.6) 06/15/18 06:39 MCV 96 fl (84-94) H 06/15/18 06:39 MCH 33 pg (28-32) H 06/15/18 06:39 MCHC 34 % (32-34) 06/15/18 06:39 RDW 12.7 % (13.2-15.2) L 06/15/18 06:39 Plt Count 164 K/mm3 (140-440) 06/15/18 06:39 Lymph % (Auto) 29.4 % (13.4-35.0) 06/15/18 06:39 [place] % (Auto) 9.0 % (0.0-7.3) H 06/15/18 06:39 Eos % (Auto) 3.4 % (0.0-4.3) 06/15/18 06:39 Baso % (Auto) 0.5 % (0.0-1.8) 06/15/18 06:39 Lymph # 2.1 K/mm3 (1.2-5.4) 06/15/18 06:39 [place] # 0.6 K/mm3 (0.0-0.8) 06/15/18 06:39 Eos # 0.2 K/mm3 (0.0-0.4) 06/15/18 06:39 Baso # 0.0 K/mm3 (0.0-0.1) 06/15/18 06:39 Seg Neutrophils % 57.7 % (40.0-70.0) 06/15/18 06:39 Seg Neutrophils # 4.1 K/mm3 (1.8-7.7) 06/15/18 06:39 PT 13.8 Sec. (12.2-14.9) 06/14/18 13:12 INR 1.00 (0.87-1.13) 06/14/18 13:12 APTT 24.2 Sec. (24.2-36.6) 06/14/18 13:12 Sodium 140 mmol/L (137-145) 06/15/18 06:39 Potassium 4.0 mmol/L (3.6-5.0) 06/15/18 06:39 Chloride 103.2 mmol/L (98-107) 06/15/18 06:39 Carbon Dioxide 28 mmol/L (22-30) 06/15/18 06:39 Anion Gap 13 mmol/L 06/15/18 06:39 BUN 13 mg/dL (9-20) 06/15/18 06:39 Creatinine 1.2 mg/dL (0.8-1.5) 06/15/18 06:39 Estimated GFR > 60 ml/min 06/15/18 06:39 BUN/Creatinine Ratio 11 % 06/15/18 06:39 Glucose 283 mg/dL (75-100) H 06/15/18 06:39 POC Glucose 111 (70-105) H 06/21/18 17:06 Hemoglobin A1c 11.5 % (4-6) H 06/14/18 13:09 Calcium 8.8 mg/dL (8.4-10.2) 06/15/18 06:39 Total Bilirubin 1.00 mg/dL (0.1-1.2) 06/15/18 06:39 AST 12 units/L (5-40) 06/15/18 06:39 ALT 14 units/L (7-56) 06/15/18 06:39 Alkaline Phosphatase 76 units/L (35-129) 06/15/18 06:39 NT-Pro-B Natriuret Pep 250.3 pg/mL (0-900) 06/14/18 13:12 Total Protein 7.0 g/dL (6.3-8.2) 06/15/18 06:39 Albumin 3.4 g/dL (3.9-5) L 06/15/18 06:39 Albumin/Globulin Ratio 0.9 % 06/15/18 06:39 Triglycerides 201 mg/dL (2-149) H 06/15/18 06:39 Cholesterol 169 mg/dL (50-199) 06/15/18 06:39 LDL Cholesterol Direct 129 mg/dL (50-130) 06/15/18 06:39 HDL Cholesterol 28 mg/dL (40-59) L 06/15/18 06:39 Cholesterol/HDL Ratio 6.03 % 06/15/18 06:39 Urine Color Yellow (Yellow) 06/14/18 13:09 Urine Turbidity Slightly-cloudy (Clear) 06/14/18 13:09 Urine pH 5.0 (5.0-7.0) 06/14/18 13:09 Ur Specific [place] 1.022 (1.003-1.030) 06/14/18 13:09 Urine Protein 100 mg/dl mg/dL (Negative) 06/14/18 13:09 Urine Glucose (UA) >=500 mg/dL (Negative) 06/14/18 13:09 Urine Ketones Tr mg/dL (Negative) 06/14/18 13:09 Urine Blood Neg (Negative) 06/14/18 13:09 Urine Nitrite Neg (Negative) 06/14/18 13:09 Urine Bilirubin Neg (Negative) 06/14/18 13:09 Urine Urobilinogen 2.0 mg/dL (<2.0) 06/14/18 13:09 Ur Leukocyte Esterase Sm (Negative) 06/14/18 13:09 Urine WBC (Auto) 20.0 /HPF (0.0-6.0) H 06/14/18 13:09 Urine RBC (Auto) < 1.0 /HPF (0.0-6.0) 06/14/18 13:09 Urine Bacteria (Auto) 1+ /HPF (Negative) 06/14/18 13:09 Urine Mucus Few /HPF 06/14/18 13:09 Active Medications - Current Medications Current Medications: Generic Name Dose Route Start Last Admin Trade Name Freq PRN Reason Stop Dose Admin Acetaminophen 650 mg 06/14/18 16:01 Tylenol PO Q4H PRN Pain MILD(1-3)/Fever >100.5/CHAPIN Amlodipine Besylate 10 mg 06/15/18 10:00 06/21/18 10:39 Norvasc PO 10 mg DAILY FRANCOIS Administration Aspirin 81 mg 06/15/18 10:00 06/21/18 10:39 Halfprin Ec PO 81 mg QDAY FRANCOIS Administration Atorvastatin Calcium 40 mg 06/14/18 22:00 06/20/18 21:50 Lipitor PO 40 mg QHS FRANCOIS Administration Bisacodyl 10 mg 06/17/18 16:13 06/17/18 17:30 Dulcolax PO 10 mg QDAY PRN Administration Constipation Clopidogrel Bisulfate 75 mg 06/15/18 10:00 06/21/18 10:39 Plavix PO 75 mg QDAY FRANCOIS Administration Enoxaparin Sodium 40 mg 06/14/18 17:00 06/21/18 10:38 Lovenox SUB-Q 40 mg QDAY FRANCOIS Administration Hydralazine HCl 100 mg 06/15/18 08:00 06/21/18 13:26 Apresoline PO 100 mg TID FRANCOIS Administration Hydromorphone HCl 0.5 mg 06/14/18 16:03 Dilaudid IV Q3H PRN Pain , Severe (7-10) Sodium Chloride 1,000 mls @ 75 mls/hr 06/14/18 18:00 06/16/18 12:30 Nacl 0.9% 1000 Ml IV 75 mls/hr DIRECT FARNCOIS Administration Ceftriaxone Sodium 2 gm in 100 mls @ 200 mls/hr 06/15/18 10:00 06/21/18 10:40 Rocephin/Ns 2 Gm/100 Ml IV 200 mls/hr Q24HR FRANCOIS Administration Protocol Insulin Glargine 30 units 06/15/18 10:00 06/21/18 10:39 Lantus SUB-Q 30 units QAM FRANCOIS Administration Insulin Human Lispro 0 unit 06/15/18 07:30 06/21/18 13:26 Humalog SUB-Q 2 unit ACHS FRANCOIS Administration Protocol Lisinopril 20 mg 06/15/18 10:00 06/21/18 10:39 Zestril PO 20 mg BID FRANCOIS Administration Metformin HCl 1,000 mg 06/15/18 08:00 06/21/18 10:39 Glucophage PO 1,000 mg BIDDIAB FRANCOIS Administration Ondansetron HCl 4 mg 06/14/18 16:01 Zofran IV Q8H PRN Nausea And Vomiting Oxycodone/Acetaminophen 1 tab 06/14/18 16:03 Percocet 5/325 PO Q6H PRN Pain, Moderate (4-6) Sodium Chloride 10 ml 06/14/18 22:00 06/21/18 10:00 Sodium Chloride Flush Syringe 10 Ml IV 10 ml BID FRANCOIS Administration Sodium Chloride 10 ml 06/14/18 16:06 Sodium Chloride Flush Syringe 10 Ml IV PRN PRN LINE FLUSH Tamsulosin HCl 0.4 mg 06/15/18 10:00 06/21/18 10:39 Flomax PO 0.4 mg QDAY FRANCOIS Administration Vitamin B Complex/Vitamin C 1 each 06/15/18 10:00 06/21/18 10:38 [place] With C PO 1 each QDAY FRANCOIS Administration Nutrition/Malnutrition Assess - Dietary Evaluation Nutrition/Malnutrition Findings: Nutrition Notes Start: 06/15/18 10:51 Freq: Status: Active Protocol: Document 06/21/18 13:28 OH (Rec: 06/21/18 13:38 OH [id number]) Nutrition Notes Initial or Follow up Reassessment Current Diet Cardiac/consistent CHO Labs/Tests HGBA1C 11.5 Pertinent Medications Lipitor, Lovenox, Humalog Height 5 ft 11 in Weight 107.5 kg [facility] Body Weight (kg) 78.18 BMI 33.0 Intake Prior to Admission Good Weight change and time frame 5% WT change noted x6 days. Unsure if pt had prosthesis on or not. Weight Status Obese Subjective/Other Information F/U; Pt. lying in bed. He reports he attended DM education classes in 2010? His cooks at home. Pt. has BKA with prosthesis. Per pt he is following a grass diet at home. HGBA1C noted to be significantly elevated. Discussed w/pt MNT therapy options and follow up through secondary ([employer]) insurance. Percent of energy/protein needs met: 30/30% Burn Absent GI Symptoms None Current % PO Poor (25-49%) #2 Nutrition Diagnosis Inadequate oral intake Etiology poor appetite As Evidenced by Signs and Symptoms <50% trays eaten #1 Nutrition Diagnosis Food and nutrition-related knowledge deficit Etiology poor understanding/follow through related to diabetes nutrition education As Evidenced by Signs and Symptoms hgba1c 11.5 Is patient on ventilator? No Is Patient Ambulatory and/or Out of Bed Yes REE-([place] or-ambulatory/OOB) [ 2427.269 NUTR.MSJOOB] Kcal/Kg value to use for calculation 18 Approximate Energy Requirements Using 1935 kcal/Kg Calculation Used for Recommendations Kcal/kg Additional Notes PRO: 0.8-1.0 g/kg/IBW 63-78 G/DAY FLUID: 1 mL/kcal Nutrition Intervention Change Diet Order: Cont Consistent CHO/CARDIAC Teaching Recipient Patient Learning Readiness Fair Teaching Methods Discussion Response to Teaching Verbalize understanding, Reinforcement needed Education Handouts Provided Discussed w/pt the need to have routine checkups with MD managing diabetes. [facility] to follow up with clinical education department regarding assistance w/ managing DM/CVA/HTN diagnosis. Barriers to Learning Motivation,Physical,Age related,Environmental,Social Goal #1 po intake to exceed 50% Anticipated Discharge Needs: DM education/reinforcment Additional Comments Monitor PO INTAKE
[2018-06-22] MEDS: HumaLOG SUB-Q SCH ×4 (07:30→21:35)
[2018-06-22] MEDS: GLUCOPHAGE PO SCH ×2 (09:42→18:13)
[2018-06-22] MEDS: FLOMAX PO SCH (09:42)
[2018-06-22] MEDS: NORVASC PO SCH (09:42)
[2018-06-22] MEDS: PLAVIX PO SCH (09:42)
[2018-06-22] MEDS: ZESTRIL PO SCH ×2 (09:42→21:35)
[2018-06-22] MEDS: HALFPRIN EC PO SCH (09:43)
[2018-06-22] MEDS: SODIUM CHLORIDE FLUSH SYRINGE 10 ML IV SCH ×2 (09:43→21:35)
[2018-06-22] MEDS: APRESOLINE PO SCH ×3 (09:43→21:38)
[2018-06-22] MEDS: LANTUS SUB-Q SCH (09:56)
[2018-06-22] MEDS: ROCEPHIN/NS 2 GM/100 ML 2 GM/100 ML BAG IV SCH (09:57)
[2018-06-22] MEDS: ALLBEE WITH C PO SCH (09:57)
[2018-06-22] MEDS: LOVENOX SUB-Q SCH (09:58)
--- NOTE | 2018-06-22 15:24 | Progress Note ---
Assessment and Plan Assessment and plan: Acute CVA. MRI L hemispheric infarcts-acute, with residual right sided weakness Patient for acute rehabilitation. Near baseline MRA 50 percent L MCA blockage Hypertension. Continue anti-process medications. Diabetes mellitus type 2. Continue Accu-Cheks and sliding scale insulin. UTI. Continue IV Rocephin. History of coronary artery disease. No chest pain. Stable. BPH. Continue Flomax. Disposition. Await placement in acute rehabilitation. Discussed with patient. Discussed with case management History Interval history: Patient with acute ischemic stroke Hospitalist Physical - Physical exam Narrative exam: en: Not in acute distress, lying in bed, Obese HEENT: Normocephalic, atraumatic Neck: supple, no JVD Heart: S1 and S2 reg, no murmurs, rubs or gallop Lungs: Clear, no crackles Abd: soft, non tender, non distended, normal BS Ext: No edema, no clubbing, no cyanosis Neuro: Awake,alert, right sided weakness - Constitutional Vitals: Temp Pulse Resp BP Pulse Ox 98.0 F 59 L 18 139/43 97 06/22/18 11:52 06/22/18 11:52 06/22/18 11:52 06/22/18 11:52 06/22/18 11:52 General appearance: Present: no acute distress, well-nourished Results - Labs CBC & Chem 7: 06/15/18 06:39 06/15/18 06:39 Labs: Laboratory Last Values WBC 7.0 K/mm3 (4.5-11.0) 06/15/18 06:39 RBC 4.37 M/mm3 (3.65-5.03) 06/15/18 06:39 Hgb 14.4 gm/dl (11.8-15.2) 06/15/18 06:39 Hct 42.0 % (35.5-45.6) 06/15/18 06:39 MCV 96 fl (84-94) H 06/15/18 06:39 MCH 33 pg (28-32) H 06/15/18 06:39 MCHC 34 % (32-34) 06/15/18 06:39 RDW 12.7 % (13.2-15.2) L 06/15/18 06:39 Plt Count 164 K/mm3 (140-440) 06/15/18 06:39 Lymph % (Auto) 29.4 % (13.4-35.0) 06/15/18 06:39 [place] % (Auto) 9.0 % (0.0-7.3) H 06/15/18 06:39 Eos % (Auto) 3.4 % (0.0-4.3) 06/15/18 06:39 Baso % (Auto) 0.5 % (0.0-1.8) 06/15/18 06:39 Lymph # 2.1 K/mm3 (1.2-5.4) 06/15/18 06:39 [place] # 0.6 K/mm3 (0.0-0.8) 06/15/18 06:39 Eos # 0.2 K/mm3 (0.0-0.4) 06/15/18 06:39 Baso # 0.0 K/mm3 (0.0-0.1) 06/15/18 06:39 Seg Neutrophils % 57.7 % (40.0-70.0) 06/15/18 06:39 Seg Neutrophils # 4.1 K/mm3 (1.8-7.7) 06/15/18 06:39 PT 13.8 Sec. (12.2-14.9) 06/14/18 13:12 INR 1.00 (0.87-1.13) 06/14/18 13:12 APTT 24.2 Sec. (24.2-36.6) 06/14/18 13:12 Sodium 140 mmol/L (137-145) 06/15/18 06:39 Potassium 4.0 mmol/L (3.6-5.0) 06/15/18 06:39 Chloride 103.2 mmol/L (98-107) 06/15/18 06:39 Carbon Dioxide 28 mmol/L (22-30) 06/15/18 06:39 13 mmol/L 06/15/18 06:39 BUN 13 mg/dL (9-20) 06/15/18 06:39 1.2 mg/dL (0.8-1.5) 06/15/18 06:39 Estimated GFR > 60 ml/min 06/15/18 06:39 11 % 06/15/18 06:39 Glucose 283 mg/dL (75-100) H 06/15/18 06:39 POC Glucose 118 (70-105) H 06/22/18 09:27 11.5 % (4-6) H 06/14/18 13:09 Calcium 8.8 mg/dL (8.4-10.2) 06/15/18 06:39 1.00 mg/dL (0.1-1.2) 06/15/18 06:39 AST 12 units/L (5-40) 06/15/18 06:39 ALT 14 units/L (7-56) 06/15/18 06:39 76 units/L (35-129) 06/15/18 06:39 NT-Pro-B Natriuret Pep 250.3 pg/mL (0-900) 06/14/18 13:12 7.0 g/dL (6.3-8.2) 06/15/18 06:39 3.4 g/dL (3.9-5) L 06/15/18 06:39 0.9 % 06/15/18 06:39 Triglycerides 201 mg/dL (2-149) H 06/15/18 06:39 Cholesterol 169 mg/dL (50-199) 06/15/18 06:39 129 mg/dL (50-130) 06/15/18 06:39 28 mg/dL (40-59) L 06/15/18 06:39 6.03 % 06/15/18 06:39 Yellow (Yellow) 06/14/18 13:09 Slightly-cloudy (Clear) 06/14/18 13:09 5.0 (5.0-7.0) 06/14/18 13:09 Ur Specific [place] 1.022 (1.003-1.030) 06/14/18 13:09 100 mg/dl mg/dL (Negative) 06/14/18 13:09 >=500 mg/dL (Negative) 06/14/18 13:09 Tr mg/dL (Negative) 06/14/18 13:09 Neg (Negative) 06/14/18 13:09 Neg (Negative) 06/14/18 13:09 Neg (Negative) 06/14/18 13:09 2.0 mg/dL (<2.0) 06/14/18 13:09 Ur Leukocyte Esterase Sm (Negative) 06/14/18 13:09 20.0 /HPF (0.0-6.0) H 06/14/18 13:09 < 1.0 /HPF (0.0-6.0) 06/14/18 13:09 1+ /HPF (Negative) 06/14/18 13:09 Few /HPF 06/14/18 13:09 Active Medications - Current Medications Current Medications: Generic Name Dose Route Start Last Admin Trade Name Freq PRN Reason Stop Dose Admin Acetaminophen 650 mg 06/14/18 16:01 Tylenol PO Q4H PRN Pain MILD(1-3)/Fever >100.5/CHAPIN Amlodipine Besylate 10 mg 06/15/18 10:00 06/22/18 09:42 Norvasc PO 10 mg DAILY FRANCOIS Administration Aspirin 81 mg 06/15/18 10:00 06/22/18 09:43 Halfprin Ec PO 81 mg QDAY FRANCOIS Administration Atorvastatin Calcium 40 mg 06/14/18 22:00 06/21/18 23:11 Lipitor PO Not Given QHS FRANCOIS Bisacodyl 10 mg 06/17/18 16:13 06/17/18 17:30 Dulcolax PO 10 mg QDAY PRN Administration Constipation Clopidogrel Bisulfate 75 mg 06/15/18 10:00 06/22/18 09:42 Plavix PO 75 mg QDAY FRANCOIS Administration Enoxaparin Sodium 40 mg 06/14/18 17:00 06/22/18 09:58 Lovenox SUB-Q 40 mg QDAY FRANCOIS Administration Hydralazine HCl 100 mg 06/15/18 08:00 06/22/18 09:43 Apresoline PO 100 mg TID FRANCOIS Administration Hydromorphone HCl 0.5 mg 06/14/18 16:03 Dilaudid IV Q3H PRN Pain , Severe (7-10) Sodium Chloride 1,000 mls @ 75 mls/hr 06/14/18 18:00 06/16/18 12:30 Nacl 0.9% 1000 Ml IV 75 mls/hr DIRECT FRANCOIS Administration Ceftriaxone Sodium 2 gm in 100 mls @ 200 mls/hr 06/15/18 10:00 06/22/18 09:57 Rocephin/Ns 2 Gm/100 Ml IV 200 mls/hr Q24HR FRANCOIS Administration Protocol Insulin Glargine 30 units 06/15/18 10:00 06/22/18 09:56 Lantus SUB-Q 30 units QAM FRANCOIS Administration Insulin Human Lispro 0 unit 06/15/18 07:30 06/21/18 23:09 Humalog SUB-Q Not Given ACHS [facility] Protocol Lisinopril 20 mg 06/15/18 10:00 06/22/18 09:42 Zestril PO 20 mg BID FRANCOIS Administration Metformin HCl 1,000 mg 06/15/18 08:00 06/22/18 09:42 Glucophage PO 1,000 mg BIDDIAB FRANCOIS Administration Ondansetron HCl 4 mg 06/14/18 16:01 Zofran IV Q8H PRN Nausea And Vomiting Oxycodone/Acetaminophen 1 tab 06/14/18 16:03 Percocet 5/325 PO Q6H PRN Pain, Moderate (4-6) Sodium Chloride 10 ml 06/14/18 22:00 06/22/18 09:43 Sodium Chloride Flush Syringe 10 Ml IV 10 ml BID FRANCOIS Administration Sodium Chloride 10 ml 06/14/18 16:06 06/21/18 20:55 Sodium Chloride Flush Syringe 10 Ml IV 10 ml PRN PRN Administration LINE FLUSH Tamsulosin HCl 0.4 mg 06/15/18 10:00 06/22/18 09:42 Flomax PO 0.4 mg QDAY FRANCOIS Administration Vitamin B Complex/Vitamin C 1 each 06/15/18 10:00 06/22/18 09:57 [place] With C PO 1 each QDAY FRANCOIS Administration Nutrition/Malnutrition Assess - Dietary Evaluation Nutrition/Malnutrition Findings: Nutrition Notes Start: 06/15/18 10:51 Freq: Status: Active Protocol: Document 06/21/18 13:28 OH (Rec: 06/21/18 13:38 OH [id number]) Nutrition Notes Initial or Follow up Reassessment Current Diet Cardiac/consistent CHO Labs/Tests HGBA1C 11.5 Pertinent Medications Lipitor, Lovenox, Humalog Height 5 ft 11 in Weight 107.5 kg [place] Body Weight (kg) 78.18 BMI 33.0 Intake Prior to Admission Good Weight change and time frame 5% WT change noted x6 days. Unsure if pt had prosthesis on or not. Weight Status Obese Subjective/Other Information F/U; Pt. lying in bed. He reports he attended DM education classes in 2010? His cooks at home. Pt. has BKA with prosthesis. Per pt he is following a grass diet at home. HGBA1C noted to be significantly elevated. Discussed w/pt MNT therapy options and follow up through secondary ([employer]) insurance. Percent of energy/protein needs met: 30/30% Burn Absent GI Symptoms None Current % PO Poor (25-49%) #2 Nutrition Diagnosis Inadequate oral intake Etiology poor appetite As Evidenced by Signs and Symptoms <50% trays eaten #1 Nutrition Diagnosis Food and nutrition-related knowledge deficit Etiology poor understanding/follow through related to diabetes nutrition education As Evidenced by Signs and Symptoms hgba1c 11.5 Is patient on ventilator? No Is Patient Ambulatory and/or Out of Bed Yes REE-([place]OO[facility]) [ 2427.269 NUTR.MSJOOB] Kcal/Kg value to use for calculation 18 Approximate Energy Requirements Using 1935 kcal/Kg Calculation Used for Recommendations Kcal/kg Additional Notes PRO: 0.8-1.0 g/kg/IBW 63-78 G/DAY FLUID: 1 mL/kcal Nutrition Intervention Change Diet Order: Cont Consistent CHO/CARDIAC Teaching Recipient Patient Learning Readiness Fair Teaching Methods Discussion Response to Teaching Verbalize understanding, Reinforcement needed Education Handouts Provided Discussed w/pt the need to have routine checkups with MD managing diabetes. Enc pt to contact [employer] (secondary insurance) to follow up with clinical education department regarding assistance w/ managing DM/CVA/HTN diagnosis. Barriers to Learning Motivation,Physical,Age related,Environmental,Social Goal #1 po intake to exceed 50% Anticipated Discharge Needs: DM education/reinforcment Additional Comments Monitor PO INTAKE
[2018-06-23 05:36] LABS: Hematocrit 36.8 % (35.5-45.6); Hemoglobin 12.6 gm/dl (11.8-15.2); Mean Corpuscular HGB Conc 34 % (32-34); Mean Corpuscular Volume 98 fl (84-94); Platelet Count 199 K/mm3 (140-440); Red Blood Count 3.76 M/mm3 (3.65-5.03); Red Cell Distribution Width 12.9 % (13.2-15.2)
[2018-06-23 05:58] LABS: BUN/Creatinine Ratio 15; Blood Urea Nitrogen 17 mg/dL (9-20); Calcium 8.8 mg/dL (8.4-10.2); Hemolysis Index 4
[2018-06-23] MEDS: HumaLOG SUB-Q SCH ×3 (07:30→18:28)
[2018-06-23] MEDS: ALLBEE WITH C PO SCH (10:20)
[2018-06-23] MEDS: GLUCOPHAGE PO SCH ×2 (10:20→18:28)
[2018-06-23] MEDS: PLAVIX PO SCH (10:20)
[2018-06-23] MEDS: HALFPRIN EC PO SCH (10:21)
[2018-06-23] MEDS: ZESTRIL PO SCH (10:21)
[2018-06-23] MEDS: FLOMAX PO SCH (10:21)
[2018-06-23] MEDS: LOVENOX SUB-Q SCH (10:22)
[2018-06-23] MEDS: APRESOLINE PO SCH ×2 (10:22→14:00)
[2018-06-23] MEDS: NORVASC PO SCH (10:22)
[2018-06-23] MEDS: ROCEPHIN/NS 2 GM/100 ML 2 GM/100 ML BAG IV SCH (10:23)
[2018-06-23] MEDS: LANTUS SUB-Q SCH (10:23)
[2018-06-23] MEDS: SODIUM CHLORIDE FLUSH SYRINGE 10 ML IV SCH (10:24)
--- NOTE | 2018-06-23 12:02 | Progress Note ---
Assessment and Plan Assessment and plan: Acute CVA. MRI L hemispheric infarcts-acute, with residual right sided weakness Patient for acute rehabilitation. Near baseline MRA 50 percent L MCA blockage Hypertension. Continue anti-process medications. Diabetes mellitus type 2. Continue Accu-Cheks and sliding scale insulin. UTI. Continue IV Rocephin. History of coronary artery disease. No chest pain. Stable. BPH. Continue Flomax. Disposition. Await placement in acute rehabilitation. Discussed with patient and at bedside Discussed with case management History Interval history: Patient with acute ischemic stroke Hospitalist Physical - Physical exam Narrative exam: en: Not in acute distress, lying in bed, Obese HEENT: Normocephalic, atraumatic Neck: supple, no JVD Heart: S1 and S2 reg, no murmurs, rubs or gallop Lungs: Clear, no crackles Abd: soft, non tender, non distended, normal BS Ext: No edema, no clubbing, no cyanosis Neuro: Awake,alert, right sided weakness - Constitutional Vitals: Temp Pulse Resp BP Pulse Ox 98.0 F 58 L 18 149/40 95 06/23/18 04:08 06/23/18 04:08 06/23/18 04:08 06/23/18 04:08 06/23/18 04:08 General appearance: Present: no acute distress, well-nourished Results - Labs CBC & Chem 7: 06/23/18 05:06 06/23/18 05:06 Labs: Laboratory Last Values WBC 6.7 K/mm3 (4.5-11.0) 06/23/18 05:06 RBC 3.76 M/mm3 (3.65-5.03) 06/23/18 05:06 Hgb 12.6 gm/dl (11.8-15.2) 06/23/18 05:06 Hct 36.8 % (35.5-45.6) 06/23/18 05:06 MCV 98 fl (84-94) H 06/23/18 05:06 MCH 34 pg (28-32) H 06/23/18 05:06 MCHC 34 % (32-34) 06/23/18 05:06 RDW 12.9 % (13.2-15.2) L 06/23/18 05:06 Plt Count 199 K/mm3 (140-440) 06/23/18 05:06 Lymph % (Auto) 29.4 % (13.4-35.0) 06/15/18 06:39 [place] % (Auto) 9.0 % (0.0-7.3) H 06/15/18 06:39 Eos % (Auto) 3.4 % (0.0-4.3) 06/15/18 06:39 Baso % (Auto) 0.5 % (0.0-1.8) 06/15/18 06:39 Lymph # 2.1 K/mm3 (1.2-5.4) 06/15/18 06:39 [place] # 0.6 K/mm3 (0.0-0.8) 06/15/18 06:39 Eos # 0.2 K/mm3 (0.0-0.4) 06/15/18 06:39 Baso # 0.0 K/mm3 (0.0-0.1) 06/15/18 06:39 Seg Neutrophils % 57.7 % (40.0-70.0) 06/15/18 06:39 Seg Neutrophils # 4.1 K/mm3 (1.8-7.7) 06/15/18 06:39 PT 13.8 Sec. (12.2-14.9) 06/14/18 13:12 INR 1.00 (0.87-1.13) 06/14/18 13:12 APTT 24.2 Sec. (24.2-36.6) 06/14/18 13:12 Sodium 138 mmol/L (137-145) 06/23/18 05:06 Potassium 3.8 mmol/L (3.6-5.0) 06/23/18 05:06 Chloride 104.0 mmol/L (98-107) 06/23/18 05:06 Carbon Dioxide 25 mmol/L (22-30) 06/23/18 05:06 13 mmol/L 06/23/18 05:06 BUN 17 mg/dL (9-20) 06/23/18 05:06 1.1 mg/dL (0.8-1.5) 06/23/18 05:06 Estimated GFR > 60 ml/min 06/23/18 05:06 15 % 06/23/18 05:06 Glucose 150 mg/dL (75-100) H 06/23/18 05:06 POC Glucose 113 (70-105) H 06/23/18 09:10 11.5 % (4-6) H 06/14/18 13:09 Calcium 8.8 mg/dL (8.4-10.2) 06/23/18 05:06 1.00 mg/dL (0.1-1.2) 06/15/18 06:39 AST 12 units/L (5-40) 06/15/18 06:39 ALT 14 units/L (7-56) 06/15/18 06:39 76 units/L (35-129) 06/15/18 06:39 NT-Pro-B Natriuret Pep 250.3 pg/mL (0-900) 06/14/18 13:12 7.0 g/dL (6.3-8.2) 06/15/18 06:39 3.4 g/dL (3.9-5) L 06/15/18 06:39 0.9 % 06/15/18 06:39 Triglycerides 201 mg/dL (2-149) H 06/15/18 06:39 Cholesterol 169 mg/dL (50-199) 06/15/18 06:39 129 mg/dL (50-130) 06/15/18 06:39 28 mg/dL (40-59) L 06/15/18 06:39 6.03 % 06/15/18 06:39 Yellow (Yellow) 06/14/18 13:09 Slightly-cloudy (Clear) 06/14/18 13:09 5.0 (5.0-7.0) 06/14/18 13:09 Ur Specific [place] 1.022 (1.003-1.030) 06/14/18 13:09 100 mg/dl mg/dL (Negative) 06/14/18 13:09 >=500 mg/dL (Negative) 06/14/18 13:09 Tr mg/dL (Negative) 06/14/18 13:09 Neg (Negative) 06/14/18 13:09 Neg (Negative) 06/14/18 13:09 Neg (Negative) 06/14/18 13:09 2.0 mg/dL (<2.0) 06/14/18 13:09 Ur Leukocyte Esterase Sm (Negative) 06/14/18 13:09 20.0 /HPF (0.0-6.0) H 06/14/18 13:09 < 1.0 /HPF (0.0-6.0) 06/14/18 13:09 1+ /HPF (Negative) 06/14/18 13:09 Few /HPF 06/14/18 13:09 Active Medications - Current Medications Current Medications: Generic Name Dose Route Start Last Admin Trade Name Freq PRN Reason Stop Dose Admin Acetaminophen 650 mg 06/14/18 16:01 Tylenol PO Q4H PRN Pain MILD(1-3)/Fever >100.5/CHAPIN Amlodipine Besylate 10 mg 06/15/18 10:00 06/23/18 10:22 Norvasc PO 10 mg DAILY FRANCOIS Administration Aspirin 81 mg 06/15/18 10:00 06/23/18 10:21 Halfprin Ec PO 81 mg QDAY FRANCOIS Administration Atorvastatin Calcium 40 mg 06/14/18 22:00 06/22/18 21:35 Lipitor PO 40 mg QHS FRANCOIS Administration Bisacodyl 10 mg 06/17/18 16:13 06/17/18 17:30 Dulcolax PO 10 mg QDAY PRN Administration Constipation Clopidogrel Bisulfate 75 mg 06/15/18 10:00 06/23/18 10:20 Plavix PO 75 mg QDAY FRANCOIS Administration Enoxaparin Sodium 40 mg 06/14/18 17:00 06/23/18 10:22 Lovenox SUB-Q 40 mg QDAY FRANCOIS Administration Hydralazine HCl 100 mg 06/15/18 08:00 06/23/18 10:22 Apresoline PO 100 mg TID FRANCOIS Administration Hydromorphone HCl 0.5 mg 06/14/18 16:03 Dilaudid IV Q3H PRN Pain , Severe (7-10) Sodium Chloride 1,000 mls @ 75 mls/hr 06/14/18 18:00 06/16/18 12:30 Nacl 0.9% 1000 Ml IV 75 mls/hr DIRECT FRANCOIS Administration Ceftriaxone Sodium 2 gm in 100 mls @ 200 mls/hr 06/15/18 10:00 06/23/18 10:23 Rocephin/Ns 2 Gm/100 Ml IV 200 mls/hr Q24HR FRANCOIS Administration Protocol Insulin Glargine 30 units 06/15/18 10:00 06/23/18 10:23 Lantus SUB-Q 30 units QAM FRANCOIS Administration Insulin Human Lispro 0 unit 06/15/18 07:30 06/23/18 07:30 Humalog SUB-Q Not Given ACHS [facility] Protocol Lisinopril 20 mg 06/15/18 10:00 06/23/18 10:21 Zestril PO 20 mg BID RFANCOIS Administration Metformin HCl 1,000 mg 06/15/18 08:00 06/23/18 10:20 Glucophage PO 1,000 mg BIDDIAB FRANCOIS Administration Ondansetron HCl 4 mg 06/14/18 16:01 Zofran IV Q8H PRN Nausea And Vomiting Oxycodone/Acetaminophen 1 tab 06/14/18 16:03 Percocet 5/325 PO Q6H PRN Pain, Moderate (4-6) Sodium Chloride 10 ml 06/14/18 22:00 06/23/18 10:24 Sodium Chloride Flush Syringe 10 Ml IV 10 ml BID FRANCOIS Administration Sodium Chloride 10 ml 06/14/18 16:06 06/21/18 20:55 Sodium Chloride Flush Syringe 10 Ml IV 10 ml PRN PRN Administration LINE FLUSH Tamsulosin HCl 0.4 mg 06/15/18 10:00 06/23/18 10:21 Flomax PO 0.4 mg QDAY FRANCOIS Administration Vitamin B Complex/Vitamin C 1 each 06/15/18 10:00 06/23/18 10:20 [place] With C PO 1 each QDAY FRANCOIS Administration Nutrition/Malnutrition Assess - Dietary Evaluation Nutrition/Malnutrition Findings: Nutrition Notes Start: 06/15/18 10:51 Freq: Status: Active Protocol: Document 06/21/18 13:28 OH (Rec: 06/21/18 13:38 OH [id number]) Nutrition Notes Initial or Follow up Reassessment Current Diet Cardiac/consistent CHO Labs/Tests HGBA1C 11.5 Pertinent Medications Lipitor, Lovenox, Humalog Height 5 ft 11 in Weight 107.5 kg [place] Body Weight (kg) 78.18 BMI 33.0 Intake Prior to Admission Good Weight change and time frame 5% WT change noted x6 days. Unsure if pt had prosthesis on or not. Weight Status Obese Subjective/Other Information F/U; Pt. lying in bed. He reports he attended DM education classes in 2010? His cooks at home. Pt. has BKA with prosthesis. Per pt he is following a grass diet at home. HGBA1C noted to be significantly elevated. Discussed w/pt MNT therapy options and follow up through secondary ([employer]) insurance. Percent of energy/protein needs met: 30/30% Burn Absent GI Symptoms None Current % PO Poor (25-49%) #2 Nutrition Diagnosis Inadequate oral intake Etiology poor appetite As Evidenced by Signs and Symptoms <50% trays eaten #1 Nutrition Diagnosis Food and nutrition-related knowledge deficit Etiology poor understanding/follow through related to diabetes nutrition education As Evidenced by Signs and Symptoms hgba1c 11.5 Is patient on ventilator? No Is Patient Ambulatory and/or Out of Bed Yes REE[facility]) [ 2427.269 NUTR.MSJOOB] Kcal/Kg value to use for calculation 18 Approximate Energy Requirements Using 1935 kcal/Kg Calculation Used for Recommendations Kcal/kg Additional Notes PRO: 0.8-1.0 g/kg/IBW 63-78 G/DAY FLUID: 1 mL/kcal Nutrition Intervention Change Diet Order: Cont Consistent CHO/CARDIAC Teaching Recipient Patient Learning Readiness Fair Teaching Methods Discussion Response to Teaching Verbalize understanding, Reinforcement needed Education Handouts Provided Discussed w/pt the need to have routine checkups with MD managing diabetes. Enc pt to contact [employer] (secondary insurance) to follow up with clinical education department regarding assistance w/ managing DM/CVA/HTN diagnosis. Barriers to Learning Motivation,Physical,Age related,Environmental,Social Goal #1 po intake to exceed 50% Anticipated Discharge Needs: DM education/reinforcment Additional Comments Monitor PO INTAKE
--- NOTE | 2018-06-23 16:19 | Discharge Summary ---
Providers - Providers Date of Admission: 06/14/18 16:02 Date of discharge: 06/23/18 Attending physician: OFELIA FIGUEROA 06/14/18 16:03 Consult to Physician [CONS] Routine Comment: Consulting Provider: KAROLINA BELLO Physician Instructions: Reason For Exam: Acute CVA 06/14/18 16:06 Occupational Therapy Evaluate and Treat [CONS] Routine Comment: Reason For Exam: Neuro deficits Physical Therapy Evaluation and Treat [CONS] Routine Comment: Reason For Exam: Neuro deficits 06/17/18 17:14 Consult to Case Management [CONS] Routine Services Needed at Discharge: Physical Therapy Notified:: case fittermanager supplier physician: DAPHNIE PUCKETT Hospitalization Condition: Fair Hospital course: Patient is 68 yo with previous stroke, left below knee amputaation. He presented with right sided weakness. He was seen and evaluated in ED. A CT head was done, unremarkable. He was given Aspirin, admitted to r/o stroke. MRI confirmed acute ischemic stroke on left. He was evaluated by PT and OT and acute rehab was recommended. Arrangements were made and he was discharged to acute rehab on 06/23/18. Total time spent on discharge, 32 mins Disposition: [id number] INPT REHAB FACILITY - Discharge Diagnoses (1) History of left below knee amputation Status: Acute (2) Acute CVA (cerebrovascular accident) Status: Acute Comment: Patient placed on aspirin and Plavix statin. Cholesterol suboptimal control. Goal of LDL less than 70. We'll increase atorvastatin (3) CAD (coronary artery disease) Status: Chronic Qualifiers: Associated angina: without angina Comment: At present remains chest pain-free on Plavix aspirin antilipid agent. (4) HTN (hypertension) Status: Chronic Qualifiers: Hypertension type: essential hypertension Qualified Code(s): I10 - Essential (primary) hypertension Comment: Patient has optimal control with lisinopril 40 mg twice a day. We'll also provide renal protection. (5) IDDM (insulin dependent diabetes mellitus) Status: Chronic Comment: Patient diabetes has been suboptimally controlled for quite a while. Hemoglobin A1c was 11.5. We'll need to improve this to prevent further strokes and further cognitive deficits. I have titrated her Lantus up to 30 units. The rest can be done in the outpatient setting. Core Measure Documentation - Palliative Care Palliative Care/ Comfort Measures: Not Applicable - Core Measures Any of the following diagnoses?: stroke - Stroke Discharge Requirements Statin for LDL = or >70 mg/dl on DC: Yes Anticoag for atrial fib/atrial flutter: Not Applicable Antithrombotic for ischemic stroke: Yes Exam - Physical Exam Narrative exam: en: Not in acute distress, lying in bed, Obese HEENT: Normocephalic, atraumatic Neck: supple, no JVD Heart: S1 and S2 reg, no murmurs, rubs or gallop Lungs: Clear, no crackles Abd: soft, non tender, non distended, normal BS Ext: No edema, no clubbing, no cyanosis,left BKA Neuro: Awake,alert, right sided weakness - Constitutional Vitals: Temp Pulse Resp BP Pulse Ox 98.0 F 58 L 18 149/40 95 06/23/18 04:08 06/23/18 04:08 06/23/18 04:08 06/23/18 04:08 06/23/18 04:08 Plan Activity: advance as tolerated Diet: low fat, low cholesterol, low salt Follow up with: PRIMARY CAREMD [Referring] - 3-5 Days
[2018-06-23 17:10] VITALS: BP 147/63
== END 2018-06-23 18:49 | DRG 65 ==
LOC: ED 10:54 → 4A 16:02
PROVIDERS: ADMIT Internal Medicine; ATTEND Internal Medicine
DX: I63.9 Cerebral infarction, unspecified (principal); G81.91 Hemiplegia, unspecified affecting right dominant side; N30.00 Acute cystitis without hematuria; I25.10 Atherosclerotic heart disease of native coronary artery without angina pectoris; I10 Essential (primary) hypertension; R47.81 Slurred speech; I25.2 Old myocardial infarction; N40.1 Benign prostatic hyperplasia with lower urinary tract symptoms; Z89.512 Acquired absence of left leg below knee; E11.51 Type 2 diabetes mellitus with diabetic peripheral angiopathy without gangrene; Z82.49 Family history of ischemic heart disease and other diseases of the circulatory system; Z87.891 Personal history of nicotine dependence
CPT/HCPCS: 36415; 70450; 70544; 70551; 71045; 80048; 80053; 80061; 81001; 82962; 83036; 83880; 85025; 85027; 85610; 85730; 93005; 93010; 93306; 93880; 96372; 99406; G0378; A9270-GY; J0696; J1650; J1815; J7030

== ENCOUNTER 2018-06-23 16:27 | Inpatient (IN) | payer MEDICARE ==
[2018-06-23] MEDS ORDERED: D50W (25GM) Syringe IV PRN (17:22)
[2018-06-23] MEDS ORDERED: TYLENOL PO PRN (17:32)
[2018-06-23] MEDS ORDERED: PERCOCET 5/325 PO PRN (17:32)
[2018-06-23] MEDS: APRESOLINE PO SCH (22:53)
[2018-06-23] MEDS: HumaLOG SUB-Q SCH (22:54)
[2018-06-24] MEDS: HumaLOG SUB-Q SCH ×3 (07:42→22:34)
[2018-06-24] MEDS: FLOMAX PO SCH (08:01)
[2018-06-24] MEDS: LOVENOX SUB-Q SCH (08:37)
[2018-06-24] MEDS: PLAVIX PO SCH (08:38)
[2018-06-24] MEDS: ALLBEE WITH C PO SCH (08:38)
[2018-06-24] MEDS: APRESOLINE PO SCH ×3 (08:38→21:37)
[2018-06-24] MEDS: HALFPRIN EC PO SCH (08:39)
[2018-06-24 08:51] LABS: Basophils # (Auto) 0.1 K/mm3 (0.0-0.1); Basophils % (Auto) 1.3 % (0.0-1.8); Eosinophils # (Auto) 0.3 K/mm3 (0.0-0.4); Eosinophils % (Auto) 5.1 % (0.0-4.3); Hematocrit 38.4 % (35.5-45.6); Hemoglobin 13.1 gm/dl (11.8-15.2); Lymphocytes # (Auto) 1.8 K/mm3 (1.2-5.4); Lymphocytes % (Auto) 26.5 % (13.4-35.0); Mean Corpuscular HGB Conc 34 % (32-34); Mean Corpuscular Volume 99 fl (84-94); Monocytes # (Auto) 0.6 K/mm3 (0.0-0.8); Monocytes % (Auto) 8.1 % (0.0-7.3); Platelet Count 232 K/mm3 (140-440); Red Cell Distribution Width 13.1 % (13.2-15.2)
[2018-06-24 09:21] LABS: Alanine Aminotransferase 20 units/L (7-56); Albumin 3.9 g/dL (3.9-5); BUN/Creatinine Ratio 16; Blood Urea Nitrogen 18 mg/dL (9-20); Calcium 9.1 mg/dL (8.4-10.2); Hemolysis Index 3
--- NOTE | 2018-06-24 13:04 | History and Physical Report ---
History of Present Illness Date: 06/24/18 Date of admission: 06/23/18 17:22 Chief Complaint: CVA with right hemiparesis History of present illness: 68-year-old right-hand dominant male who was in normal state of health until he developed right-sided weakness more so on the leg than the arm. No apparent dysarthria or facial droop noted. He was admitted for suspected CVA and underwent scanning via CT head which showed no abnormalities, and later by MRI brain which showed areas consistent with recent infarcts in the parafalcine aspect of the left hemisphere. MRA showed a 50% blockage in the left MCA. Carotid Doppler showed less than 50% stenosis bilaterally. Echocardiogram showed mild dilation of the left ventricular chamber with ventricular hypertrophy, decreased left ventricular systolic function, EF 40-45%, mild aortic stenosis. He was treated for UTI with IV Rocephin. States it has been 3-4 days since last BM. Stroke labs were obtained and are as follows: 06/14/2018 A1c 11.5 06/15/2018 triglycerides 201, cholesterol 169, LDL 129, HDL 28 was present for the exam. Patient is fairly sedentary at home. Discussion was had with patient and concerning prognosis, secondary stroke prevention, diabetes control and foot check in order to avoid right lower extremity activation, recovery time line and what to expect on the rehabilitation unit. All questions were answered. Spoke with speech therapy prior to seeing the patient and he should have no issues with swallowing. After the patient was medically stabilized they were transferred for further rehabilitation. All available medical records have been reviewed. Plan of care was discussed with patient and family. Past History Past Medical History: CAD, diabetes (uncontrolled), hypertension, hyperlipidemia, other (BPH) Past Surgical History: Other (left BKA with prosthesis) Social history: , lives with family (single level home, retired), full code. denies: smoking, alcohol abuse (occasional beer), prescription drug abuse Family history: diabetes, hypertension Medications and Allergies Allergies Allergy/AdvReac Type Severity Reaction Status Date / Time No Known Allergies Allergy Unverified 06/14/18 11:14 Home Medications Medication Instructions Recorded Confirmed Last Taken Type Aspirin EC [Aspirin Enteric Coated 81 mg PO QDAY #30 tablet 06/17/18 06/23/18 Unknown Rx TAB] AtorvaSTATin [Lipitor] 40 mg PO QHS #30 tablet 06/17/18 06/23/18 Unknown Rx Clopidogrel [Plavix] 75 mg PO QDAY #30 tablet 06/17/18 06/23/18 Unknown Rx Glimepiride [Amaryl] 2 mg PO BID #30 tablet 06/17/18 06/23/18 Unknown Rx Insulin Glargine [Lantus VIAL] 30 units SUB-Q QAM units 06/17/18 06/23/18 Unknown Rx Metformin HCl [Glucophage] 1,000 mg PO BID #30 tablet 06/17/18 06/23/18 Unknown Rx Quinapril HCl [Accupril] 40 mg PO BID #30 tablet 06/17/18 06/23/18 Unknown Rx Tamsulosin [Flomax] 0.4 mg PO QDAY #30 capsule 06/17/18 06/23/18 Unknown Rx amLODIPine [Norvasc] 10 mg PO DAILY #30 tablet 06/17/18 06/23/18 Unknown Rx hydrALAZINE [Apresoline TAB] 100 mg PO TID #90 tab 06/17/18 06/23/18 Unknown Rx Tamsulosin [Flomax] 0.4 mg PO QDAY capsule 06/23/18 06/23/18 Unknown Rx Active Meds: Active Medications Acetaminophen (Tylenol) 650 mg PO Q4H PRN PRN Reason: Pain, Mild (1-3) Amlodipine Besylate (Norvasc) 10 mg PO QDAY [facility] Aspirin (Halfprin Ec) 81 mg PO QDAY [facility] Last Admin: 06/24/18 08:39 Dose: 81 mg Documented by: Atorvastatin Calcium (Lipitor) 40 mg PO QHS [facility] Last Admin: 06/23/18 22:48 Dose: 40 mg Documented by: Clopidogrel Bisulfate (Plavix) 75 mg PO QDAY [facility] Last Admin: 06/24/18 08:38 Dose: Not Given Documented by: Dextrose (D50w (25gm) Syringe) 50 ml IV PRN PRN PRN Reason: Hypoglycemia Enoxaparin Sodium (Lovenox) 40 mg SUB-Q QDAY [facility] Last Admin: 06/24/18 08:37 Dose: 40 mg Documented by: Hydralazine HCl (Apresoline) 100 mg PO TID [facility] Last Admin: 06/24/18 08:38 Dose: 100 mg Documented by: Insulin Glargine (Lantus) 30 units SUB-Q QAM [facility] Insulin Human Lispro (Humalog) 0 unit SUB-Q ACHS [facility]; Protocol Last Admin: 06/23/18 22:54 Dose: Not Given Documented by: Lisinopril (Zestril) 20 mg PO QDAY [facility] Oxycodone/Acetaminophen (Percocet 5/325) 1 tab PO Q6H PRN PRN Reason: Pain, Moderate (4-6) Tamsulosin HCl (Flomax) 0.4 mg PO QDAY [facility] Last Admin: 06/24/18 08:01 Dose: 0.4 mg Documented by: Vitamin B Complex/Vitamin C ([place]bee With C) 1 each PO QDAY [facility] Last Admin: 06/24/18 08:38 Dose: 1 each Documented by: Review of Systems All systems: negative (ROS negative for 12 systems except as noted below with pertinent positives and negatives.) Constitutional: fatigue, weakness, no chronic pain Ears, nose, mouth and throat: no decreased hearing, no dysphagia, no voice beverly nges Cardiovascular: high blood pressure, no chest pain, no rapid/irregular heart beat, no lightheadedness, no shortness of breath Respiratory: no cough, no shortness of breath, no wheezing Gastrointestinal: constipation, no abdominal pain, no nausea, no vomiting Genitourinary Male: no incontinence Rectal: no incontinence Musculoskeletal: gait dysfunction, prior amputations (left BKA) Integumentary: no rash, no redness, no sores Neurological: weakness, lack of coordination Psychiatric: no insomnia, no change in appetite, no depression Endocrine: high blood sugars Exam - Exam Narrative exam: MUSCULOSKELETAL SPECIALTY EXAM CONSTITUTIONAL: Well developed, well nourished, appropriately groomed. RIGHT hand dominant. LYMPHATIC: No appreciable abnormalities palpable in neck RESPIRATORY: Clear to auscultation bilaterally, no increased work of breathing CARDIOVASCULAR: Regular Rate/ Rhythm, no swelling, edema or tenderness in BUE or BLE. Pulses palpable in all extremities. All extremities warm. GI: + bowel sounds, soft, NTTP, nondistended. INTEGUMENTARY: Normal, no lesion, rash, masses or bruising noted in extremities. MUSCULOSKELETAL: BUE and RLE normal without defect, crepitus, subluxation, effusion, arthritic changes or TTP. Left BKA with prosthesis available SA EF WE EE FF FA HF KE ADF EHL APF R 4+/5 4+/5 4+/5 4+/5 4+/5 4+/5 4-/5 4-/5 4-/5 4- /5 4-/5 L 5/5 5/5 5/5 5/5 5/5 5/5 5/5 5/5 5/5 5/5 5/5 ROM full Tone normal NEURO: CN II : Visual neal full to confrontation CN II, III : PERRL CN III, IV, : EOMI CN V : Facial sensation intact CN VII : Symmetric facial expressions and eye closure CN VIII : Hearing intact to finger rustle CN IX, X : Palate/uvula elevate midline, phonation normal CN XI : Intact shoulder shrug and head rotation CN XII : Tongue protrudes midline Sensation intact in all extremities without extinction. Reflexes 2+ bilaterally at biceps, brachioradialis and right patella. No clonus at ankle. Coordination intact in BUE, no dysmetria noted. No tremor noted in 4 extremities. Naming and repetition intact. Follows 2 step commands. Aphasia not appreciated Dysarthria not appreciated Dysphagia not present Neglect not appreciated POSTURE and GAIT: Sitting posture good. Balance appears reasonable. Gait deferred until seen with therapy. PSYCH: Alert, orientated x3, affect appears euthymic. Insight appears intact. - Constitutional Vitals: Vital Signs - 12hr 06/24/18 06/24/18 06/24/18 04:49 08:00 09:07 Temperature 36.8 C 37.0 C Pulse Rate 82 57 L Respiratory 19 Rate Blood Pressure 118/68 181/31 139/48 [Left] O2 Sat by Pulse 96 Oximetry - Allied health notes FIMS assesment as documented by PT/OT/ST: Grooming Patient cleans teeth/dentures: Yes Patient washes, rinses and Yes dries face: Patient washes, rinses and Yes dries hands: Patient shaves: No Patient performs (no make-up/ /4 (100%) shaving): Grooming FIM Score 5. Supervision ([place] applies toothpaste or opens containers.) Toileting Toileting Device Commode over Toilet Patient able to: Adjust clothes before,Clean self,Adjust clothes after Patient able to perform: 3/3 (100%) Toileting FIM Score 5. Supv./Set-Up (Needs stand-by, set-up, applying prosth/orth.) Social interaction/Memory/Problem solving Social Interaction FIM Score 7. Complete [place] (Interacts appropriately. Controls temper.) Memory FIM Score 7. Complete [place] (Remembers people and routines.) Problem Solving FIM Score 6. Mod. [place] (Mild difficulty or needs more time w/ complex.) Transfers Mode of Locomotion: Wheelchair Bed/Chair/Wheelchair Transfers 4. Minimal Assistance (Patient = 75% or more. FIM Score Needs touching.) Toilet Transfers FIM Score 4. Minimal Assistance (Patient = 75% or more. Needs touching.) Patient transferred to: Shower Shower Transfers FIM Score 4. Minimal Assistance (Patient = 75% or more. Needs touching.) Eating Eating FIM Score 6. Modified [place] (Special consistency or uses device.) Dressing-Upper body Patient retrieves clothing No items: Patient applies/removes UE n/a prosthesis or orthosis: Upper Body Dressing FIM Score 5. Supv./Set-Up ([place] sets out clothes or applies pros./orth.) Dressing-lower body Patient retrieves clothing No items: Patient applies/removes LE Yes prosthesis or orthosis: Lower Body Dressing FIM Score 4. Minimal Assistance (Patient = 75% or more. Needs touching.) - Labs CBC & Chem 7: 06/24/18 08:40 06/24/18 08:40 Labs: Laboratory Results - last 72 hr 06/24/18 06/24/18 06/24/18 08:40 08:40 09:38 WBC 6.8 RBC 3.90 Hgb 13.1 Hct 38.4 MCV 99 H MCH 34 H MCHC 34 RDW 13.1 L Plt Count 232 Lymph % (Auto) 26.5 Heard % (Auto) 8.1 H Eos % (Auto) 5.1 H Baso % (Auto) 1.3 Lymph # 1.8 Heard # 0.6 Eos # 0.3 Baso # 0.1 Seg Neutrophils % 59.0 Seg Neutrophils # 4.0 Sodium 140 Potassium 4.0 Chloride 103.3 Carbon Dioxide 24 Anion Gap 17 BUN 18 Creatinine 1.1 Estimated GFR > 60 BUN/Creatinine Ratio 16 Glucose 155 H POC Glucose 156 H Calcium 9.1 Total Bilirubin 1.80 H AST 18 ALT 20 Alkaline Phosphatase 69 Total Protein 7.2 Albumin 3.9 Albumin/Globulin Ratio 1.2 06/24/18 11:10 WBC RBC Hgb Hct MCV MCH MCHC RDW Plt Count Lymph % (Auto) Heard % (Auto) Eos % (Auto) Baso % (Auto) Lymph # Heard # Eos # Baso # Seg Neutrophils % Seg Neutrophils # Sodium Potassium Chloride Carbon Dioxide Anion Gap BUN Creatinine Estimated GFR BUN/Creatinine Ratio Glucose POC Glucose 114 H Calcium Total Bilirubin AST ALT Alkaline Phosphatase Total Protein Albumin Albumin/Globulin Ratio Assessment and Plan Assessment and plan: Patient was assessed and evaluated for Acute Inpatient Rehab Unit. Due to the patients above-mentioned medical complexity, along with decreased functional mobility and self care, this patient continues to require and be appropriate for a comprehensive, multidisciplinary [id number] rehabilitation program. These needs cannot be met in an outpatient or other less intensive setting. The patient would continue to benefit from skilled therapy intervention for at least 3 hours per day, five days a week, with techniques specific to the needs of the patient to improve function, activities of daily living, and reintegration into the community. The patient continues to require: -- OT to improve ROM, self-care, and learn use of adaptive equipment -- PT to improve strength and balance, functional transfers, and ambulation with energy conservation techniques to improve functional mobility -- 24 hour RN to ensure and prevent skin breakdown, promote progressive independence while ensuring safety, ensure education regarding medications, and incorporation of the rehabilitation at the bedside -- 24 hour Band Reamer Machine Operator to coordinate this interdisciplinary program, and to manage/prevent complications as a result of the patients medical comorbidities. -Plan of care by day 4 -Weekly team conferences With such a program, there is a reasonable certainty that the goals individualized for this patient can be achieved within the specified length of stay. I69.351 CVA with hemiparesis affecting right dominant side: Continue therapy as below, continue secondary stroke prevention. monitor for worsening neurologic function, post stroke depression, shoulder-hand syndrome, spasticity. Discussed with patient and prognosis as well as timeline for recovery and secondary stroke prevention. I10 hypertension: Continue medications adjust medications as needed for normotension. E11.9 diabetes: Continue medications and carb control diet. Adjust insulin as n eeded K59.00 constipation: Start MiraLAX and suppository, monitor for improvement. R39.11 BPH: Continue Flomax Z89.512 left BKA history: Monitor residual limb for any wounds, sure that patient is able to properly maintain, don and doff, and utilize prosthesis safely. Monitor for any balance issues. Z73.6 ADL dysfunction: OT will work on improving ability to perform ADLs (including assistive devices) to increase independence and decrease caregiver burden and improve functional transfers and mobility training. R26.2 Difficulty walking: PT will work on gait training and proper use of assistive devices and advance as appropriate to use of stairs and outside ambulation on uneven surfaces. R26.81 Unsteadiness on feet: PT will work on improving static and dynamic sitting and standing balance as well as proper use of assistive devices to decrease risk of falls. R26.89 Abnormality of gait: PT will work to improve safety and efficiency of gait through neuromotor training and gait training along with instruction on proper use of assistive devices. M62.81 Muscle weakness: PT & OT will work on strengthening exercises to improve functional strength including mixture of closed and open kinetic chain exercises. R53.81 Debility: PT & OT will work on improving overall functional status to improve participation with ADLs, mobility and social involvement. R53.83 Fatigue: PT & OT will work on improving endurance through aerobic exercises and therapeutic activity while monitoring patients tolerance for activity and vital signs as needed. DVT ppx: Lovenox Pain: Continue physical modalities in therapy and pain medications as needed to achieve functional pain control. Sleep: Monitor and address as needed. Bowel: Monitor and address as needed. Appetite: Monitor and address as needed. Discharge planning: Pending therapy progress and care plan meeting. Will continue discussion with therapy team, SW, patient and family. Restrictions/ Precautions: Falls WB status: FWB Functional Hx: ADLs: Independent Cognition: Independent Mobility: No AD Barriers to Discharge: Decreased mobility and ability to perform self care, balance deficits, weakness, difficulty donning and doffing prosthesis Estimated Length of Stay: 14-21 days Discharge Destination: Home with family POST ADMISSION PHYSICIAN EVALUATION I have examined the patient and find that functional status, medical condition and appropriateness for IR[facility] admission are essentially unchanged from those described in the preadmission screening. Will monitor for worsening neurologic degradation, shoulder-hand syndrome, post stroke depression, DVT/PE, bowel and bladder complications and complications due to diabetes, hypertension and electrolyte abnormalities. Will attempt to avoid occurrence of these issues or treat them if they present themselves.
[2018-06-24] MEDS ORDERED: DULCOLAX PR PRN (13:37)
[2018-06-24] MEDS: MIRALAX 3350 PO SCH (14:47)
[2018-06-24] MEDS: ZESTRIL PO SCH (15:33)
[2018-06-24] MEDS: NORVASC PO SCH (15:34)
[2018-06-24] MEDS: LANTUS SUB-Q SCH (15:47)
[2018-06-25] MEDS: NORVASC PO SCH ×2 (06:50→08:02)
[2018-06-25] MEDS: FLOMAX PO SCH (08:00)
[2018-06-25] MEDS: MIRALAX 3350 PO SCH ×2 (08:00→08:08)
[2018-06-25] MEDS: HALFPRIN EC PO SCH (08:00)
[2018-06-25] MEDS: PLAVIX PO SCH (08:00)
[2018-06-25] MEDS: ZESTRIL PO SCH (08:00)
[2018-06-25] MEDS: APRESOLINE PO SCH ×3 (08:00→21:57)
[2018-06-25] MEDS: ALLBEE WITH C PO SCH (08:01)
[2018-06-25] MEDS: LOVENOX SUB-Q SCH (08:01)
[2018-06-25] MEDS: HumaLOG SUB-Q SCH ×5 (08:03→21:57)
[2018-06-25] MEDS: LANTUS SUB-Q SCH (10:40)
--- NOTE | 2018-06-26 08:54 | Progress Note ---
Subjective Date of service: 06/26/18 Principal diagnosis: CVA Interval history: 68-year-old right-hand dominant male who was in normal state of health until he developed right-sided weakness more so on the leg than the arm. No apparent dysarthria or facial droop noted. He was admitted for suspected CVA and underwent scanning via CT head which showed no abnormalities, and later by MRI brain which showed areas consistent with recent infarcts in the parafalcine aspect of the left hemisphere. MRA showed a 50% blockage in the left MCA. Carotid Doppler showed less than 50% stenosis bilaterally. Echocardiogram showed mild dilation of the left ventricular chamber with ventricular hypertroph y, decreased left ventricular systolic function, EF 40-45%, mild aortic stenosis. He was treated for UTI with IV Rocephin. States it has been 3-4 days since last BM. Patient is participating in therapy and making reasonable progress. Taking rest breaks as needed. -BM, feels he is constipated for several days. Denies pain, palpitations, dyspnea, cough, N/V, weakness, or joint pain. All records, vitals, labs and medications were reviewed. No other issues per patient, nursing or therapy. Objective - Exam Narrative Exam: MUSCULOSKELETAL SPECIALTY EXAM CONSTITUTIONAL: Well developed, well nourished, appropriately groomed. RIGHT hand dominant. RESPIRATORY: Clear to auscultation bilaterally, no increased work of breathing CARDIOVASCULAR: Regular Rate/ Rhythm, no swelling, edema or tenderness in BUE or BLE. All e xtremities warm. GI: + bowel sounds, soft, NTTP, nondistended. INTEGUMENTARY: Normal, no lesion, rash, masses or bruising noted in extremities. MUSCULOSKELETAL: BUE and RLE normal without defect, crepitus, subluxation, effusion, arthritic changes or TTP. Left BKA with prosthesis available SA EF WE EE FF FA HF KE ADF EHL APF R 4+/5 4+/5 4+/5 4+/5 4+/5 4+/5 4-/5 4-/5 4-/5 4- /5 4-/5 L 5/5 5/5 5/5 5/5 5/5 5/5 5/5 5/5 5/5 5/5 5/5 ROM full Tone normal NEURO: CN II - XII grossly intact Sensation intact in all extremities without extinction. No tremor noted in 4 extremities. Naming and repetition intact. Follows 2 step commands. Aphasia not appreciated Dysarthria not appreciated Dysphagia not present Neglect not appreciated POSTURE and GAIT: Sitting posture good. Balance appears reasonable. Gait deferred until seen with therapy. PSYCH: Alert, orientated x3, affect appears euthymic. Insight appears intact. - Constitutional Vitals: Vital Signs - 12hr 06/26/18 06/26/18 03:22 07:20 Temperature 37.0 C 36.7 C Pulse Rate 54 L 63 Respiratory 20 18 Rate Blood Pressure 161/57 Blood Pressure 150/56 [Right] O2 Sat by Pulse 94 96 Oximetry - Allied health notes Allied health notes reviewed: nursing, PT, OT FIMS assessment as documented by PT/OT/ST: Grooming Patient cleans teeth/dentures: Yes Patient bolden/brushes hair: Yes Patient washes, rinses and Yes dries face: Patient washes, rinses and Yes dries hands: Patient shaves: Yes Patient performs (no make-up/ 4/4 (100%) shaving): Grooming FIM Score 4. Minimal Assistance (Patient = 75% or more. Needs touching.) Toileting Toileting Device Urinal,Bedside Commode Patient able to: Adjust clothes before,Clean self,Adjust clothes after Patient able to perform: 3/3 (100%) Toileting FIM Score 4. Minimal Assistance (Patient = 75% or more. Needs touching.) Social interaction/Memory/Problem solving Social Interaction FIM Score 5. Supervision (Needs supv. <10%. Needs encouragement to participate.) Memory FIM Score 5. Supervision (Needs cueing <10%, stressful/ unfamiliar situations.) Problem Solving FIM Score 5. Supervision (Needs cueing <10% to solve routine problems.) Transfers Mode of Locomotion: Wheelchair Bed/Chair/Wheelchair Transfers 4. Minimal Assistance (Patient = 75% or more. FIM Score Needs touching.) Toilet Transfers FIM Score 4. Minimal Assistance (Patient = 75% or more. Needs touching.) Patient transferred to: Shower Shower Transfers FIM Score 4. Minimal Assistance (Patient = 75% or more. Needs touching.) Locomotion- walk/wheelchair Ambulation Distance 170 Wheelchair Propulsion Distance 350 Wheelchair FIM Score 5. Supervision (Minimum 150 ft. supv./cues or 50 ft. independently.) Eating Eating FIM Score 5. Supervision/Set-Up (Needs help w/ containers, cutting meat, etc.) Dressing-Upper body Patient retrieves clothing Yes items: Patient applies/removes UE n/a prosthesis or orthosis: Upper Body Dressing FIM Score 4. Minimal Assistance (Patient = 75% or more. Needs touching.) Dressing-lower body Patient retrieves clothing Yes items: Patient applies/removes LE Yes prosthesis or orthosis: Lower Body Dressing FIM Score 5. Supv./Set-Up ([place] sets out clothes or applies pros./orth.) - Labs CBC & Chem 7: 06/29/18 07:42 06/29/18 07:42 Labs: Laboratory Results - last 72 hr 06/24/18 06/24/18 06/24/18 08:40 08:40 09:38 WBC 6.8 RBC 3.90 Hgb 13.1 Hct 38.4 MCV 99 H MCH 34 H MCHC 34 RDW 13.1 L Plt Count 232 Lymph % (Auto) 26.5 Barber % (Auto) 8.1 H Eos % (Auto) 5.1 H Baso % (Auto) 1.3 Lymph # 1.8 Barber # 0.6 Eos # 0.3 Baso # 0.1 Seg Neutrophils % 59.0 Seg Neutrophils # 4.0 Sodium 140 Potassium 4.0 Chloride 103.3 Carbon Dioxide 24 Anion Gap 17 BUN 18 Creatinine 1.1 Estimated GFR > 60 BUN/Creatinine Ratio 16 Glucose 155 H POC Glucose 156 H Calcium 9.1 Total Bilirubin 1.80 H AST 18 ALT 20 Alkaline Phosphatase 69 Total Protein 7.2 Albumin 3.9 Albumin/Globulin Ratio 1.2 06/24/18 06/24/18 06/24/18 11:10 17:16 22:01 WBC RBC Hgb Hct MCV MCH MCHC RDW Plt Count Lymph % (Auto) [place] % (Auto) Eos % (Auto) Baso % (Auto) Lymph # Barber # Eos # Baso # Seg Neutrophils % Seg Neutrophils # Sodium Potassium Chloride Carbon Dioxide Anion Gap BUN Creatinine Estimated GFR BUN/Creatinine Ratio Glucose POC Glucose 114 H 134 H 182 H Calcium Total Bilirubin AST ALT Alkaline Phosphatase Total Protein Albumin Albumin/Globulin Ratio 06/25/18 06/25/18 06/25/18 07:38 11:55 16:40 WBC RBC Hgb Hct MCV MCH MCHC RDW Plt Count Lymph % (Auto) [place] % (Auto) Eos % (Auto) Baso % (Auto) Lymph # Barber # Eos # Baso # Seg Neutrophils % Seg Neutrophils # Sodium Potassium Chloride Carbon Dioxide Anion Gap BUN Creatinine Estimated GFR BUN/Creatinine Ratio Glucose POC Glucose 91 104 219 H Calcium Total Bilirubin AST ALT Alkaline Phosphatase Total Protein Albumin Albumin/Globulin Ratio 06/25/18 06/26/18 21:39 07:34 WBC RBC Hgb Hct MCV MCH MCHC RDW Plt Count Lymph % (Auto) [place] % (Auto) Eos % (Auto) Baso % (Auto) Lymph # [place] # Eos # Baso # Seg Neutrophils % Seg Neutrophils # Sodium Potassium Chloride Carbon Dioxide Anion Gap BUN Creatinine Estimated GFR BUN/Creatinine Ratio Glucose POC Glucose 201 H 91 Calcium Total Bilirubin AST ALT Alkaline Phosphatase Total Protein Albumin Albumin/Globulin Ratio Assessment and Plan I69.351 CVA with hemiparesis affecting right dominant side: Continue therapy as below, continue secondary stroke prevention. monitor for worsening neurologic function, post stroke depression, shoulder-hand syndrome, spasticity. Discussed with patient and prognosis as well as timeline for recovery and secondary stroke prevention. I10 hypertension: Continue medications adjust medications as needed for normotension. E11.9 diabetes: Continue medications and carb control diet. Adjust insulin as needed K59.00 constipation: Start MiraLAX and suppository, monitor for improvement. R39.11 BPH: Continue Flomax Z89.512 left BKA history: Monitor residual limb for any wounds, sure that patient is able to properly maintain, don and doff, and utilize prosthesis safely. Monitor for any balance issues. Z73.6 ADL dysfunction: OT will work on improving ability to perform ADLs (including assistive devices) to increase independence and decrease caregiver burden and improve functional transfers and mobility training. R26.2 Difficulty walking: PT will work on gait training and proper use of assistive devices and advance as appropriate to use of stairs and outside ambulation on uneven surfaces. R26.81 Unsteadiness on feet: PT will work on improving static and dynamic sitting and standing balance as well as proper use of assistive devices to decrease risk of falls. R26.89 Abnormality of gait: PT will work to improve safety and efficiency of gait through neuromotor training and gait training along with instruction on proper use of assistive devices. M62.81 Muscle weakness: PT & OT will work on strengthening exercises to improve functional strength including mixture of closed and open kinetic chain exercises. R53.81 Debility: PT & OT will work on improving overall functional status to improve participation with ADLs, mobility and social involvement. R53.83 Fatigue: PT & OT will work on improving endurance through aerobic exerci ses and therapeutic activity while monitoring patients tolerance for activity and vital signs as needed. DVT ppx: Lovenox Pain: Continue physical modalities in therapy and pain medications as needed to achieve functional pain control. Sleep: Monitor and address as needed. Bowel: Monitor and address as needed. Appetite: Monitor and address as needed. Discharge planning: Pending therapy progress and care plan meeting. Will continue discussion with therapy team, SW, patient and family. Restrictions/ Precautions: Falls WB status: FWB Functional Hx: ADLs: Independent Cognition: Independent Mobility: No AD Barriers to Discharge: Decreased mobility and ability to perform self care, ba elyssa deficits, weakness, difficulty donning and doffing prosthesis Estimated Length of Stay: 14-21 days Discharge Destination: Home with family
[2018-06-26] MEDS: HumaLOG SUB-Q SCH ×3 (09:36→16:15)
[2018-06-26] MEDS: MIRALAX 3350 PO SCH (09:38)
[2018-06-26] MEDS ORDERED: MIRALAX 3350 PO PRN (10:41)
[2018-06-26] MEDS: HALFPRIN EC PO SCH (11:27)
[2018-06-26] MEDS: PLAVIX PO SCH (11:27)
[2018-06-26] MEDS: APRESOLINE PO SCH ×3 (11:27→21:00)
[2018-06-26] MEDS: ALLBEE WITH C PO SCH (11:27)
[2018-06-26] MEDS: NORVASC PO SCH (11:28)
[2018-06-26] MEDS: LOVENOX SUB-Q SCH (11:28)
[2018-06-26] MEDS: ZESTRIL PO SCH (11:28)
[2018-06-26] MEDS: FLOMAX PO SCH (11:28)
[2018-06-26] MEDS: LANTUS SUB-Q SCH (11:37)
[2018-06-27] MEDS: HumaLOG SUB-Q SCH ×5 (05:40→22:17)
--- NOTE | 2018-06-27 06:16 | IRU Plan of Care ---
Interdisciplinary Plan of Care - IP IRU INTERDISCIPLINARY PLAN: [facility] Inpatient Rehab Unit Plan of Care IRU Interdisciplinary Care Plan Start: 06/23/18 20:06 Freq: Admission then PRN Status: Active Protocol: Document 06/24/18 14:16 CL (Rec: 06/24/18 14:16 CL [id number]) Interdisciplinary Problem List Interdisciplinary Problem List Interdisciplinary Problem List Impaired Bathing , Grooming, Mobility, Transfers, Home management, Safety, Strength, Balance, coordination, ROM, Activity tolerance, Safety awareness, bed mobility and Gait. IRU Interdisciplinary Care Plan Therapy Services Therapy Services Will Include: PT, OT. PROPERTY CONDITION ASSESSOR EVAL Only Treatment Frequency/Intensity/Duration Patient will be seen for a Treatment Frequency minimum of 3 hours of daily therapy 5 Treatment Intensity out of 7 days a week. Therapy intensity Treatment Duration may be adjusted within a 7 consecutive day period to effectively serve the individual needs of the patient. 1.5 hrs PT, 1.5 hrs OT, 14- 21 days Problem Area: Bathing/Grooming Bathing/Grooming Outcomes Improve [place] w/ Grooming,Improve [place] w/ Bathing Bathing/Grooming Interventions ADL Training,Use of Assistive Devices,Therapeutic Exercise, Therapeutic Activity, Neuromuscular Re-Education, Balance Work,Activity Tolerance Work,Patient/ Caregiver Education Problem Area: Mobility Mobility Outcomes Improve [place] w/ Bed Mobility,Improve [place] w/ Ambulation,Improve [place] w/ Stairs/Curb, Improve [place] w/ Wheelchair Mobility Interventions Therapeutic Exercise, Neuromuscular Re-Ed.,Visual/ Perceptual Training,Activity Tolerance Work,Modalities,Use of Assistive Devices,Gait Training,Household Mobility Work,W/C Mobility Work Problem Area: Transfers Transfers Outcomes Improve [place] w/ Bed Transfers,Improve [place] w/ Car Transfers Transfers Interventions Transfer Training,Therapeutic Exercise,Neuromuscular Re- Education,Activity Tolerance Work,Modalities,Use of Assistive Devices,Patient/ Caregiver Education Problem Area: Pain Management Pain Management Outcomes Monitor for pain and improve ability to verbalize quality/severity. Pain Management Interventions Modalities, stretching and medications as needed for functional pain control. Problem Area: Knowledge Deficits Knowledge Deficits Outcomes Verbalize Precautions, Verbalize Understanding of S/S of Stroke Knowledge Deficits Interventions Disease/Injury/Sx. Intervention Education,Disease Management Education,Safety Education Problem Area: Skin/Tissue Integrity Skin/Tissue Integrity Outcomes [place] with skin monitoring and strategies to reduce injury Skin/Tissue Integrity Interventions Residual limb, inspection, foot inspections, proper weight shifting Problem Area: Discharge Concerns Discharge Concerns Outcomes Discharge Concerns Interventions Discharge Planning,Equipment Assessment, Acquisition and Placement,Family/Caregiver Conference,Patient/Family/ Caregiver Counseling,Family/ Caregiver Training Problem Area: Home Management Home Management Outcomes Improve [place] w/ Home Management Home Management Interventions Clothing Care,Activity Tolerance Work,Patient/ Caregiver Education Problem Area: Safety Safety Outcomes Provide Safe Environment, Perform Selfcare Safely, Demonstrate Good Safety w/ Transfers/Mobility Safety Interventions Identify Fall Risk,Railroad Pt. to Environment,Reduce Environmental Hazards Problem Area: Medication Education Medication Education Outcomes Patient/Caregiver will Verbalize Understanding of Medications Medication Education Interventions Explain Administration/Side Effects/Interactions Problem Area: Diabetes Education Diabetes Education Outcomes Patient will verbalize proper food choices, medication management, glucose monitoring Diabetes Education Interventions Education for proper diabetes management including medication, monitoring, and diet Physician Only Medical Prognosis and Rehabilitation Potential (Completed by Physician) Patient has a fair medical prognosis (multiple comorbidities) and good rehabilitation potential. CVA symptoms are on the milder side. He is still at risk for further neurologic decline and secondary CVA. HAve discussed changes in lifestyle, better DM control and secondary stroke prevention with patient and . This plan of care has been developed based on the findings from the pre- admission assessment, post admission physician evaluation, information gathered from the assessments from all therapy disciplines and other pertinent clinicians. The plan of care has been reviewed and discussed in collaboration with the interdisciplinary team. The plan of care will be reviewed and updated at least weekly.
[2018-06-27] MEDS: LOVENOX SUB-Q SCH (09:09)
[2018-06-27] MEDS: HALFPRIN EC PO SCH (09:10)
[2018-06-27] MEDS: PLAVIX PO SCH (09:10)
[2018-06-27] MEDS: ZESTRIL PO SCH (09:10)
[2018-06-27] MEDS: FLOMAX PO SCH (09:10)
[2018-06-27] MEDS: APRESOLINE PO SCH ×3 (09:10→22:16)
[2018-06-27] MEDS: ALLBEE WITH C PO SCH (09:10)
[2018-06-27] MEDS: NORVASC PO SCH (09:10)
[2018-06-27] MEDS: LANTUS SUB-Q SCH (11:33)
[2018-06-28] MEDS: HumaLOG SUB-Q SCH ×4 (08:11→22:35)
[2018-06-28] MEDS: LOVENOX SUB-Q SCH (08:52)
[2018-06-28] MEDS: NORVASC PO SCH (08:54)
[2018-06-28] MEDS: FLOMAX PO SCH (08:54)
[2018-06-28] MEDS: PLAVIX PO SCH (08:55)
[2018-06-28] MEDS: ZESTRIL PO SCH (08:55)
[2018-06-28] MEDS: APRESOLINE PO SCH ×3 (08:55→22:36)
[2018-06-28] MEDS: HALFPRIN EC PO SCH (08:55)
[2018-06-28] MEDS: ALLBEE WITH C PO SCH (08:56)
[2018-06-28] MEDS: LANTUS SUB-Q SCH (12:16)
[2018-06-29 08:00] LABS: Hematocrit 36.1 % (35.5-45.6); Hemoglobin 12.3 gm/dl (11.8-15.2); Mean Corpuscular HGB Conc 34 % (32-34); Mean Corpuscular Volume 99 fl (84-94); Platelet Count 235 K/mm3 (140-440); Red Blood Count 3.64 M/mm3 (3.65-5.03); Red Cell Distribution Width 13.3 % (13.2-15.2)
[2018-06-29 08:23] LABS: BUN/Creatinine Ratio 13; Blood Urea Nitrogen 14 mg/dL (9-20); Calcium 8.8 mg/dL (8.4-10.2); Hemolysis Index 1
[2018-06-29] MEDS: NORVASC PO SCH (08:55)
[2018-06-29] MEDS: LOVENOX SUB-Q SCH (08:55)
[2018-06-29] MEDS: ALLBEE WITH C PO SCH (08:55)
[2018-06-29] MEDS: PLAVIX PO SCH (08:55)
[2018-06-29] MEDS: FLOMAX PO SCH (08:56)
[2018-06-29] MEDS: HALFPRIN EC PO SCH (08:56)
[2018-06-29] MEDS: ZESTRIL PO SCH (08:56)
[2018-06-29] MEDS: APRESOLINE PO SCH ×3 (09:00→22:16)
[2018-06-29] MEDS: HumaLOG SUB-Q SCH ×4 (09:01→22:21)
--- NOTE | 2018-06-29 10:05 | Progress Note ---
Subjective Date of service: 06/29/18 Principal diagnosis: CVA Interval history: 68-year-old right-hand dominant male who was in normal state of health until he developed right-sided weakness more so on the leg than the arm. No apparent dysarthria or facial droop noted. He was admitted for suspected CVA and underwent scanning via CT head which showed no abnormalities, and later by MRI brain which showed areas consistent with recent infarcts in the parafalcine aspect of the left hemisphere. MRA showed a 50% blockage in the left MCA. Carotid Doppler showed less than 50% stenosis bilaterally. Echocardiogram showed mild dilation of the left ventricular chamber with ventricular hypertroph y, decreased left ventricular systolic function, EF 40-45%, mild aortic stenosis. He was treated for UTI with IV Rocephin. States it has been 3-4 days since last BM. Patient is participating in therapy and making good progress. Taking rest breaks as needed. +BM. Denies pain, palpitations, dyspnea, cough, N/V, or joint pain. Discussed in team conference, making good progress with mobility as well as ADLs. Some slight loss of balance and decreased higher level functioning. Decreased endurance but doing okay for functional home distances. We'll continue to work on that until next week and will likely be able to discharge home then. All records, vitals, labs and medications were reviewed. No other issues per patient, nursing or therapy. Objective - Exam Narrative Exam: MUSCULOSKELETAL SPECIALTY EXAM CONSTITUTIONAL: Well developed, well nourished, appropriately groomed. RIGHT hand dominant. RESPIRATORY: Clear to auscultation bilaterally, no increased work of breathing CARDIOVASCULAR: Regular Rate/ Rhythm, no swelling, edema or tenderness in BUE or BLE. All extremities warm. GI: + bowel sounds, soft, NTTP, nondistended. INTEGUMENTARY: Normal, no lesion, rash, masses or bruising noted in extremities. MUSCULOSKELETAL: BUE and RLE normal without defect, crepitus, subluxation, effusion, arthritic changes or TTP. Left BKA with prosthesis on SA EF WE EE FF FA HF KE ADF EHL APF R 4+/5 4+/5 4+/5 4+/5 4+/5 4+/5 4-/5 4-/5 4-/5 4- /5 4-/5 L 5/5 5/5 5/5 5/5 5/5 5/5 5/5 5/5 5/5 5/5 5/5 ROM full Tone normal NEURO: CN II - XII grossly intact Sensation intact in all extremities without extinction. No tremor noted in 4 extremities. Naming and repetition intact. Follows 2 step commands. Aphasia not appreciated Dysarthria not appreciated Dysphagia not present Neglect not appreciated POSTURE and GAIT: Sitting posture good. Balance appears reasonable. Gait functional without LOB . PSYCH: Alert, orientated x3, affect appears euthymic. Insight appears intact. - Constitutional Vitals: Vital Signs - 12hr 06/29/18 04:56 Temperature 37.0 C Pulse Rate 62 Respiratory 20 Rate Blood Pressure 144/52 O2 Sat by Pulse 96 Oximetry - Allied health notes FIMS assessment as documented by PT/OT/ST: Grooming Patient cleans teeth/dentures: Yes Patient bolden/brushes hair: Yes Patient washes, rinses and Yes dries face: Patient washes, rinses and Yes dries hands: Patient shaves: Yes Patient applies make-up: No Patient performs (no make-up/ 05/20 (100%) shaving): Patient performs (w/ make-up/ 06/20 (100%) shaving): Grooming FIM Score 5. Supervision ([place] applies toothpaste or opens containers.) Toileting Toileting Device Urinal,Bedside Commode Patient able to: Adjust clothes before,Clean self,Adjust clothes after Patient able to perform: 3/3 (100%) Toileting FIM Score 4. Minimal Assistance (Patient = 75% or more. Needs touching.) Social interaction/Memory/Problem solving Social Interaction FIM Score 5. Supervision (Needs supv. <10%. Needs encouragement to participate.) Memory FIM Score 5. Supervision (Needs cueing <10%, stressful/ unfamiliar situations.) Problem Solving FIM Score 5. Supervision (Needs cueing <10% to solve routine problems.) Transfers Mode of Locomotion: Wheelchair Bed/Chair/Wheelchair Transfers 4. Minimal Assistance (Patient = 75% or more. FIM Score Needs touching.) Toilet Transfers FIM Score 4. Minimal Assistance (Patient = 75% or more. Needs touching.) Patient transferred to: Shower Shower Transfers FIM Score 4. Minimal Assistance (Patient = 75% or more. Needs touching.) Locomotion- Stairs Device used on Stairs Handrail/s Number of Stairs Ascended/ 4 Descended Patient used handrail/support: Yes Stairs FIM Score 4. Minimal Assistance (Patient = 75% or more, touching. 12-14 stairs.) Locomotion- walk/wheelchair Most Frequent Mode of Walking Locomotion: Ambulation Distance 170 Walking FIM Score 4. Minimal Assistance (Patient = 75% or more. Minimum of 150 ft.) Wheelchair Propulsion Distance 350 Wheelchair FIM Score 5. Supervision (Minimum 150 ft. supv./cues or 50 ft. independently.) Eating Eating FIM Score 5. Supervision/Set-Up (Needs help w/ containers, cutting meat, etc.) Dressing-Upper body Patient retrieves clothing Yes items: Patient applies/removes UE n/a prosthesis or orthosis: Upper Body Dressing FIM Score 5. Supv./Set-Up ([place] sets out clothes or applies pros./orth.) Dressing-lower body Patient retrieves clothing Yes items: Patient applies/removes LE Yes prosthesis or orthosis: Lower Body Dressing FIM Score 4. Minimal Assistance (Patient = 75% or more. Needs touching.) - Labs CBC & Chem 7: 06/29/18 07:42 06/29/18 07:42 Labs: Laboratory Results - last 72 hr 06/26/18 06/26/18 06/26/18 11:37 16:14 21:40 WBC RBC Hgb Hct MCV MCH MCHC RDW Plt Count Sodium Potassium Chloride Carbon Dioxide Anion Gap BUN Creatinine Estimated GFR BUN/Creatinine Ratio Glucose POC Glucose 130 H 207 H 124 H Calcium 06/27/18 06/27/18 06/27/18 07:41 11:06 16:36 WBC RBC Hgb Hct MCV MCH MCHC RDW Plt Count Sodium Potassium Chloride Carbon Dioxide Anion Gap BUN Creatinine Estimated GFR BUN/Creatinine Ratio Glucose POC Glucose 74 128 H 109 H Calcium 06/27/18 06/28/18 06/28/18 22:10 07:46 11:39 WBC RBC Hgb Hct MCV MCH MCHC RDW Plt Count Sodium Potassium Chloride Carbon Dioxide Anion Gap BUN Creatinine Estimated GFR BUN/Creatinine Ratio Glucose POC Glucose 166 H 77 124 H Calcium 06/28/18 06/28/18 06/29/18 16:53 21:15 07:42 WBC 6.4 RBC 3.64 L Hgb 12.3 Hct 36.1 MCV 99 H MCH 34 H MCHC 34 RDW 13.3 Plt Count 235 Sodium Potassium Chloride Carbon Dioxide Anion Gap BUN Creatinine Estimated GFR BUN/Creatinine Ratio Glucose POC Glucose 249 H 232 H Calcium 06/29/18 07:42 WBC RBC Hgb Hct MCV MCH MCHC RDW Plt Count Sodium 142 Potassium 4.5 Chloride 108.0 H Carbon Dioxide 24 Anion Gap 15 BUN 14 Creatinine 1.1 Estimated GFR > 60 BUN/Creatinine Ratio 13 Glucose 128 H POC Glucose Calcium 8.8 Assessment and Plan I69.351 CVA with hemiparesis affecting right dominant side: Continue therapy as below, continue secondary stroke prevention. monitor for worsening neurologic function, post stroke depression, shoulder-hand syndrome, spasticity. Discussed with patient and prognosis as well as timeline for recovery and secondary stroke prevention. I10 hypertension: Continue medications adjust medications as needed for normotension. E11.9 diabetes: Continue medications and carb control diet. Adjust insulin as needed K59.00 constipation: Start MiraLAX and suppository, monitor for improvement. R39.11 BPH: Continue Flomax Z89.512 left BKA history: Monitor residual limb for any wounds, sure that patient is able to properly maintain, don and doff, and utilize prosthesis safely. Monitor for any balance issues. Z73.6 ADL dysfunction: OT will work on improving ability to perform ADLs (including assistive devices) to increase independence and decrease caregiver burden and improve functional transfers and mobility training. R26.2 Difficulty walking: PT will work on gait training and proper use of assistive devices and advance as appropriate to use of stairs and outside ambulation on uneven surfaces. R26.81 Unsteadiness on feet: PT will work on improving static and dynamic sitting and standing balance as well as proper use of assistive devices to decrease risk of falls. R26.89 Abnormality of gait: PT will work to improve safety and efficiency of gait through neuromotor training and gait training along with instruction on proper use of assistive devices. M62.81 Muscle weakness: PT & OT will work on strengthening exercises to improve functional strength including mixture of closed and open kinetic chain exercises. R53.81 Debility: PT & OT will work on improving overall functional status to improve participation with ADLs, mobility and social involvement. R53.83 Fatigue: PT & OT will work on improving endurance through aerobic exercises and therapeutic activity while monitoring patients tolerance for activity and vital signs as needed. DVT ppx: Lovenox Pain: Continue physical modalities in therapy and pain medications as needed to achieve functional pain control. Sleep: Monitor and address as needed. Bowel: Monitor and address as needed. Appetite: Monitor and address as needed. Discharge planning: Pending therapy progress and care plan meeting. Will continue discussion with therapy team, SW, patient and family. Restrictions/ Precautions: Falls WB status: FWB Functional Hx: ADLs: Independent Cognition: Independent Mobility: No AD Barriers to Discharge: Decreased mobility and ability to perform self care, balance deficits, weakness, difficulty donning and doffing prosthesis Estimated Length of Stay: 14-21 days Discharge Destination: Home with family
[2018-06-29] MEDS: LANTUS SUB-Q SCH (17:47)
[2018-06-30] MEDS: HumaLOG SUB-Q SCH ×4 (07:06→21:15)
[2018-06-30] MEDS: PLAVIX PO SCH (08:52)
[2018-06-30] MEDS: LOVENOX SUB-Q SCH (08:52)
[2018-06-30] MEDS: HALFPRIN EC PO SCH (08:53)
[2018-06-30] MEDS: NORVASC PO SCH (08:53)
[2018-06-30] MEDS: APRESOLINE PO SCH ×2 (08:53→21:15)
[2018-06-30] MEDS: ZESTRIL PO SCH (08:53)
[2018-06-30] MEDS: FLOMAX PO SCH (08:53)
[2018-06-30] MEDS: ALLBEE WITH C PO SCH (08:54)
[2018-06-30] MEDS: LANTUS SUB-Q SCH (09:53)
[2018-07-01] MEDS: PLAVIX PO SCH (08:19)
[2018-07-01] MEDS: HALFPRIN EC PO SCH (08:19)
[2018-07-01] MEDS: ALLBEE WITH C PO SCH (08:19)
[2018-07-01] MEDS: FLOMAX PO SCH (08:19)
[2018-07-01] MEDS: LOVENOX SUB-Q SCH (08:19)
[2018-07-01] MEDS: LANTUS SUB-Q SCH ×2 (08:20→10:00)
[2018-07-01] MEDS: HumaLOG SUB-Q SCH ×4 (08:45→22:09)
[2018-07-01] MEDS: NORVASC PO SCH (08:50)
--- NOTE | 2018-07-01 12:20 | Progress Note ---
Subjective Date of service: 07/01/18 Principal diagnosis: CVA Interval history: 68-year-old right-hand dominant male who was in normal state of health until he developed right-sided weakness more so on the leg than the arm. No apparent dysarthria or facial droop noted. He was admitted for suspected CVA and underwent scanning via CT head which showed no abnormalities, and later by MRI brain which showed areas consistent with recent infarcts in the parafalcine aspect of the left hemisphere. MRA showed a 50% blockage in the left MCA. Carotid Doppler showed less than 50% stenosis bilaterally. Echocardiogram showed mild dilation of the left ventricular chamber with ventricular hypertroph y, decreased left ventricular systolic function, EF 40-45%, mild aortic stenosis. He was treated for UTI with IV Rocephin. States it has been 3-4 days since last BM. Patient is participating in therapy and making good progress. Taking rest breaks as needed. +BM. Denies pain, palpitations, dyspnea, cough, N/V, or joint pain. Diastolic blood pressure has been running 30s-50s, have reduced dose of hydralazine. Consult internal medicine for further assistance, patient was on max dose of 3 antihypertensives. Continues to do fairly well from a therapy standpoint and plan DC next week. All records, vitals, labs and medications were reviewed. No other issues per patient, nursing or therapy. Objective - Exam Narrative Exam: MUSCULOSKELETAL SPECIALTY EXAM CONSTITUTIONAL: Well developed, well nourished, appropriately groomed. RIGHT hand dominant. RESPIRATORY: Clear to auscultation bilaterally, no increased work of breathing CARDIOVASCULAR: Regular Rate/ Rhythm, no swelling, edema or tenderness in BUE or BLE. All extremities warm. GI: + bowel sounds, soft, NTTP, nondistended. INTEGUMENTARY: Normal, no lesion, rash, masses or bruising noted in extremities. MUSCULOSKELETAL: BUE and RLE normal without defect, crepitus, subluxation, effusion, arthritic changes or TTP. Left BKA with prosthesis on SA EF WE EE FF FA HF KE ADF EHL APF R 4+/5 4+/5 4+/5 4+/5 4+/5 4+/5 4-/5 4-/5 4-/5 4- /5 4-/5 L 5/5 5/5 5/5 5/5 5/5 5/5 5/5 5/5 5/5 5/5 5/5 ROM full Tone normal NEURO: CN II - XII grossly intact Sensation intact in all extremities without extinction. No tremor noted in 4 extremities. Naming and repetition intact. Follows 2 step commands. Aphasia not appreciated Dysarthria not appreciated Dysphagia not present Neglect not appreciated POSTURE and GAIT: Sitting posture good. Balance appears reasonable. Gait functional without LOB . PSYCH: Alert, orientated x3, affect appears euthymic. Insight appears intact. - Constitutional Vitals: Vital Signs - 12hr 07/01/18 07/01/18 07/01/18 04:56 07:34 11:33 Temperature 36.7 C 36.8 C 36.7 C Pulse Rate 58 L 54 L 46 L Respiratory 20 18 18 Rate Blood Pressure 151/45 167/53 169/45 O2 Sat by Pulse 96 96 99 Oximetry - Allied health notes Allied health notes reviewed: nursing, PT, OT FIMS assessment as documented by PT/OT/ST: Grooming Patient cleans teeth/dentures: Yes Patient bolden/brushes hair: Yes Patient washes, rinses and Yes dries face: Patient washes, rinses and Yes dries hands: Patient shaves: Yes Patient applies make-up: No Patient performs (no make-up/ 05/20 (100%) shaving): Patient performs (w/ make-up/ 06/20 (100%) shaving): Grooming FIM Score 5. Supervision ([place] applies toothpaste or opens containers.) Toileting Toileting Device Bedside Commode Patient able to: Adjust clothes before,Clean self,Adjust clothes after Patient able to perform: 3/3 (100%) Toileting FIM Score 5. Supv./Set-Up (Needs stand-by, set-up, applying prosth/orth.) Social interaction/Memory/Problem solving Social Interaction FIM Score 5. Supervision (Needs supv. <10%. Needs encouragement to participate.) Memory FIM Score 6. Modified [place](Mild difficulty remembering people/routines.) Problem Solving FIM Score 5. Supervision (Needs cueing <10% to solve routine problems.) Transfers Mode of Locomotion: Wheelchair Bed/Chair/Wheelchair Transfers 5. Supervision (Needs supv. or set-up for FIM Score sliding board, foot rests.) Toilet Transfers FIM Score 4. Minimal Assistance (Patient = 75% or more. Needs touching.) Patient transferred to: Shower Shower Transfers FIM Score 4. Minimal Assistance (Patient = 75% or more. Needs touching.) Locomotion- Stairs Device used on Stairs Handrail/s Number of Stairs Ascended/ 4 Descended Patient used handrail/support: Yes Stairs FIM Score 4. Minimal Assistance (Patient = 75% or more, touching. 12-14 stairs.) Locomotion- walk/wheelchair Most Frequent Mode of Walking Locomotion: Ambulation Distance 170 Walking FIM Score 4. Minimal Assistance (Patient = 75% or more. Minimum of 150 ft.) Wheelchair Propulsion Distance 350 Wheelchair FIM Score 6. Modified [place] (Wheels a minimum of 150 ft.) Eating Eating FIM Score 6. Modified [place] (Special consistency or uses device.) Dressing-Upper body Patient retrieves clothing Yes items: Patient applies/removes UE n/a prosthesis or orthosis: Upper Body Dressing FIM Score 5. Supv./Set-Up ([place] sets out clothes or applies pros./orth.) Dressing-lower body Patient retrieves clothing Yes items: Patient applies/removes LE No prosthesis or orthosis: Lower Body Dressing FIM Score 5. Supv./Set-Up ([place] sets out clothes or applies pros./orth.) - Labs CBC & Chem 7: 06/29/18 07:42 06/29/18 07:42 Labs: Laboratory Results - last 72 hr 06/28/18 06/28/18 06/29/18 16:53 21:15 07:42 WBC 6.4 RBC 3.64 L Hgb 12.3 Hct 36.1 MCV 99 H MCH 34 H MCHC 34 RDW 13.3 Plt Count 235 Sodium Potassium Chloride Carbon Dioxide Anion Gap BUN Creatinine Estimated GFR BUN/Creatinine Ratio Glucose POC Glucose 249 H 232 H Calcium 06/29/18 06/29/18 06/29/18 07:42 07:48 12:07 WBC RBC Hgb Hct MCV MCH MCHC RDW Plt Count Sodium 142 Potassium 4.5 Chloride 108.0 H Carbon Dioxide 24 Anion Gap 15 BUN 14 Creatinine 1.1 Estimated GFR > 60 BUN/Creatinine Ratio 13 Glucose 128 H POC Glucose 127 H 99 Calcium 8.8 06/29/18 06/29/18 06/30/18 17:41 22:00 08:02 WBC RBC Hgb Hct MCV MCH MCHC RDW Plt Count Sodium Potassium Chloride Carbon Dioxide Anion Gap BUN Creatinine Estimated GFR BUN/Creatinine Ratio Glucose POC Glucose 215 H 177 H 98 Calcium 06/30/18 06/30/18 06/30/18 12:15 16:14 21:02 WBC RBC Hgb Hct MCV MCH MCHC RDW Plt Count Sodium Potassium Chloride Carbon Dioxide Anion Gap BUN Creatinine Estimated GFR BUN/Creatinine Ratio Glucose POC Glucose 99 162 H 158 H Calcium 07/01/18 07/01/18 07:39 11:34 WBC RBC Hgb Hct MCV MCH MCHC RDW Plt Count Sodium Potassium Chloride Carbon Dioxide Anion Gap BUN Creatinine Estimated GFR BUN/Creatinine Ratio Glucose POC Glucose 100 107 H Calcium Assessment and Plan I69.351 CVA with hemiparesis affecting right dominant side: Continue therapy as below, continue secondary stroke prevention. monitor for worsening neurologic function, post stroke depression, shoulder-hand syndrome, spasticity. Discussed with patient and prognosis as well as timeline for recovery and secondary stroke prevention. I10 hypertension: Continue medications adjust medications as needed for normotension. E11.9 diabetes: Continue medications and carb control diet. Adjust insulin as needed K59.00 constipation: Start MiraLAX and suppository, monitor for improvement. R39.11 BPH: Continue Flomax Z89.512 left BKA history: Monitor residual limb for any wounds, sure that patient is able to properly maintain, don and doff, and utilize prosthesis safely. Monitor for any balance issues. Z73.6 ADL dysfunction: OT will work on improving ability to perform ADLs (including assistive devices) to increase independence and decrease caregiver burden and improve functional transfers and mobility training. R26.2 Difficulty walking: PT will work on gait training and proper use of assistive devices and advance as appropriate to use of stairs and outside ambulation on uneven surfaces. R26.81 Unsteadiness on feet: PT will work on improving static and dynamic sitting and standing balance as well as proper use of assistive devices to decrease risk of falls. R26.89 Abnormality of gait: PT will work to improve safety and efficiency of gait through neuromotor training and gait training along with instruction on proper use of assistive devices. M62.81 Muscle weakness: PT & OT will work on strengthening exercises to improve functional strength including mixture of closed and open kinetic chain exercises. R53.81 Debility: PT & OT will work on improving overall functional status to improve participation with ADLs, mobility and social involvement. R53.83 Fatigue: PT & OT will work on improving endurance through aerobic exercises and therapeutic activity while monitoring patients tolerance for activity and vital signs as needed. Internal medicine consult for hypertension and diabetes management DVT ppx: Lovenox Pain: Continue physical modalities in therapy and pain medications as needed to achieve functional pain control. Sleep: Monitor and address as needed. Bowel: Monitor and address as needed. Appetite: Monitor and address as needed. Discharge planning: Pending therapy progress and care plan meeting. Will continue discussion with therapy team, SW, patient and family. Restrictions/ Precautions: Falls WB status: FWB Functional Hx: ADLs: Independent Cognition: Independent Mobility: No AD Barriers to Discharge: Decreased mobility and ability to perform self care, balance deficits, weakness, difficulty donning and doffing prosthesis Estimated Length of Stay: 14-21 days Discharge Destination: Home with family
[2018-07-01] MEDS: APRESOLINE PO SCH ×2 (17:13→22:09)
[2018-07-01] MEDS: ZESTRIL PO SCH (17:14)
--- NOTE | 2018-07-01 17:57 | Consultation ---
History of Present Illness - Reason for Consult Consult date: 07/01/18 Medical management Requesting physician: JACINTO ELIZALDE III - History of Present Illness 68 YO Male with CAD, DM, HTN, HLD, BPH, CVA with RHP admitted to IRU. Consult placed by Dr. Elizalde for medical management of HTN, DM. Pt seen and evaluated in his room. Pt resting comfortably, sitting in a chair next to his eating dinner. Pt denies fever, chills, CP, Palpitations, NVD, Trauma, Productive cough, hematuria, headache, or recent ill contacts. Pt participating in physical therapy. No reported nursing events. Past History Past Medical History: CAD, diabetes (uncontrolled), hypertension, hyperlipidemia, other (BPH) Past Surgical History: Other (left BKA with prosthesis) Social history: , lives with family (single level home, retired), full code. denies: smoking, alcohol abuse (occasional beer), prescription drug abuse Family history: diabetes, hypertension Medications and Allergies Allergies Allergy/AdvReac Type Severity Reaction Status Date / Time No Known Allergies Allergy Unverified 06/14/18 11:14 Home Medications Medication Instructions Recorded Confirmed Last Taken Type Aspirin EC 81 mg PO QDAY 30 Days #30 tablet 07/06/18 Unknown Rx AtorvaSTATin [Lipitor] 40 mg PO QHS 30 Days #30 tablet 07/06/18 Unknown Rx B Complex W/Vitamin C [Allbee with 1 each PO QDAY 30 Days #30 tablet 07/06/18 Unknown Rx C] Clopidogrel [Plavix] 75 mg PO QDAY 30 Days tablet 07/06/18 Unknown Rx Insulin Glargine [Lantus VIAL] 30 units SUB-Q QAM 30 Days units 07/06/18 Unknown Rx Lisinopril [Zestril TAB] 20 mg PO QDAY 30 Days #30 tablet 07/06/18 Unknown Rx Lispro Insulin [HumaLOG] 0 unit SUB-Q ACHS 30 Days units 07/06/18 Unknown Rx Tamsulosin [Flomax] 0.4 mg PO QDAY 30 Days #30 capsule 07/06/18 Unknown Rx amLODIPine [Norvasc] 10 mg PO QDAY 30 Days #30 tablet 07/06/18 Unknown Rx hydrALAZINE [Apresoline TAB] 100 mg PO TID 30 Days #90 tab 07/06/18 Unknown Rx Active Meds: Active Medications Acetaminophen (Tylenol) 650 mg PO Q4H PRN PRN Reason: Pain, Mild (1-3) Amlodipine Besylate (Norvasc) 10 mg PO QDAY [facility] Last Admin: 07/01/18 08:50 Dose: Not Given Documented by: Aspirin (Halfprin Ec) 81 mg PO QDAY [facility] Last Admin: 07/01/18 08:19 Dose: 81 mg Documented by: Atorvastatin Calcium (Lipitor) 40 mg PO QHS [facility] Last Admin: 06/30/18 21:15 Dose: 40 mg Documented by: Bisacodyl (Dulcolax) 10 mg [place] QDAY PRN PRN Reason: Constipation Clopidogrel Bisulfate (Plavix) 75 mg PO QDAY [facility] Last Admin: 07/01/18 08:19 Dose: 75 mg Documented by: Dextrose (D50w (25gm) Syringe) 50 ml IV PRN PRN PRN Reason: Hypoglycemia Enoxaparin Sodium (Lovenox) 40 mg SUB-Q QDAY [facility] Last Admin: 07/01/18 08:19 Dose: 40 mg Documented by: Hydralazine HCl (Apresoline) 50 mg PO TID [facility] Last Admin: 07/01/18 17:13 Dose: 50 mg Documented by: Insulin Glargine (Lantus) 30 units SUB-Q [facility] Last Admin: 07/01/18 10:00 Dose: Not Given Documented by: Insulin Human Lispro (Humalog) 0 unit SUB-Q [facility]; Protocol Last Admin: 07/01/18 17:20 Dose: 3 unit Documented by: Lisinopril (Zestril) 20 mg PO QDAY [facility] Last Admin: 07/01/18 17:14 Dose: 20 mg Documented by: Oxycodone/Acetaminophen (Percocet 5/325) 1 tab PO Q6H PRN PRN Reason: Pain, Moderate (4-6) Polyethylene Glycol (Miralax 3350) 17 gm PO QDAY PRN PRN Reason: Constipation Tamsulosin HCl (Flomax) 0.4 mg PO QDAY [facility] Last Admin: 07/01/18 08:19 Dose: 0.4 mg Documented by: Vitamin B Complex/Vitamin C (Allbee With C) 1 each PO QDAY [facility] Last Admin: 07/01/18 08:19 Dose: 1 each Documented by: Review of Systems Constitutional: no weight loss, no weight gain, no fever, no chills Ears, nose, mouth and throat: no ear pain, no ear discharge, no tinnitis, no decreased hearing, no nose pain Cardiovascular: no chest pain, no orthopnea, no palpitations, no rapid/irregular heart beat, no edema, no lightheadedness Respiratory: no cough, no cough with sputum, no excessive sputum, no hemoptysis Gastrointestinal: no nausea, no diarrhea, no constipation Genitourinary Male: no hematuria, no flank pain, no discharge, no urinary frequency, no urinary hesitancy Rectal: no pain, no incontinence, no bleeding Musculoskeletal: no neck pain, no shooting arm pain Integumentary: no rash, no pruritis, no redness, no sores, no wounds Neurological: no head injury, no transient paralysis, no weakness, no numbness Psychiatric: no anxiety, no memory loss, no change in sleep habits, no sleep disturbances, no insomnia, no change in appetite, no change in libido Endocrine: no cold intolerance, no heat intolerance, no polyphagia, no excessive thirst, no polyuria, no nocturia Hematologic/Lymphatic: no easy bruising, no easy bleeding, no lymphadenopathy, no lymphedema Allergic/Immunologic: no urticaria, no allergic rhinitis, no persistent infections, no angioedema Exam - Constitutional Vitals: Temp Pulse Resp BP Pulse Ox 98.0 F 56 L 18 177/60 98 07/01/18 16:19 07/01/18 16:00 07/01/18 16:19 07/01/18 17:14 07/01/18 16:00 General appearance: Present: no acute distress, well-nourished - EENT Eyes: Present: PERRL ENT: hearing intact, clear oral mucosa - Neck Neck: Present: supple, normal ROM - Respiratory Respiratory effort: normal Respiratory: bilateral: CTA - Cardiovascular Heart Sounds: Present: S1 & S2. Absent: rub, click - Extremities Extremities: pulses symmetrical, No edema Peripheral Pulses: within normal limits - Abdominal General gastrointestinal: Present: soft, non-tender, non-distended, normal bowel sounds Male genitourinary: Present: normal - Integumentary Integumentary: Present: clear, warm, dry - Musculoskeletal Musculoskeletal: gait normal, strength equal bilaterally - Psychiatric Psychiatric: appropriate mood/affect, intact judgment & insight - Neurologic Neurologic: CNII-XII intact, moves all extremities Results - Labs CBC & Chem 7: 07/05/18 12:35 07/05/18 12:35 Labs: Abnormal lab results 06/30/18 07/01/18 07/01/18 Range/Units 21:02 11:34 16:21 POC Glucose 158 H 107 H 216 H (70-105) Assessment and Plan - Patient Problems (1) HTN (hypertension) Status: Chronic Qualifiers: Hypertension type: essential hypertension Qualified Code(s): I10 - Essential (primary) hypertension Plan to address problem: Monitor bp q shift, low sodium diet, continue medical management, IV hydralazine PRN for SBP >155. (2) IDDM (insulin dependent diabetes mellitus) Status: Chronic Plan to address problem: ADA diet, Sliding scale insulin, accu check, hypoglycemia protocol
[2018-07-01] MEDS ORDERED: APRESOLINE IV PRN (18:03)
[2018-07-01] MEDS ORDERED: D50W (25GM) Syringe IV PRN (18:04)
[2018-07-02] MEDS: HumaLOG SUB-Q SCH ×3 (07:50→16:49)
[2018-07-02] MEDS: NORVASC PO SCH (08:38)
[2018-07-02] MEDS: ZESTRIL PO SCH (09:41)
[2018-07-02] MEDS: LANTUS SUB-Q SCH (10:21)
[2018-07-02] MEDS: PLAVIX PO SCH (10:55)
[2018-07-02] MEDS: HALFPRIN EC PO SCH (10:55)
[2018-07-02] MEDS: ALLBEE WITH C PO SCH (10:55)
[2018-07-02] MEDS: FLOMAX PO SCH (10:55)
[2018-07-02] MEDS: APRESOLINE PO SCH ×2 (14:40→20:00)
--- NOTE | 2018-07-02 17:28 | Progress Note ---
Assessment and Plan Assessment and plan: 68 YO Male with CAD, DM, HTN, HLD, BPH, CVA with RHP admitted to IRU. Consult placed by Dr. [place] for medical management of HTN, DM. Pt seen and evaluated in his room. Pt resting comfortably, sitting in a chair next to his eating dinner. Pt denies fever, chills, CP, Palpitations, NVD, Trauma, Productive cough, hematuria, headache, or recent ill contacts. Pt participating in physical therapy. No reported nursing events. Hypertension: Improved with adjustment of hydaralazine to home dose DM: stable, continue ADA diet and sliding scale with accu check HLP: Continue statin CVA: Management per IRU team, Continue antiplatelet and Rehab DVT/GI prophy Plan discussed with the patient in detail History Interval history: Patient seen and examined today reports improvement. Were consulted to assist with blood pressure management. No new complaints today. Hospitalist Physical - Physical exam Narrative exam: VITAL SIGNS: Reviewed. GENERAL: The patient appeared well nourished and normally developed, Vital signs as documented. HEAD: No signs of head trauma. EYES: Pupils are equal. Extraocular motions intact. EARS: Hearing grossly intact. MOUTH: Oropharynx is normal. NECK: No adenopathy, no JVD. Mildly tender on the right side. CHEST: Chest with clear breath sounds bilaterally. No wheezes, rales, or rhonchi. CARDIAC: Regular rate and rhythm. S1 and S2, without murmurs, gallops, or rubs. VASCULAR: No Edema. Peripheral pulses normal and equal in all extremities. ABDOMEN: Soft, non tender and non distended. No rebound or guarding, and no masses palpated. Bowel Sounds normal. MUSCULOSKELETAL: Left BKA with prosthesis Extremities without clubbing, cyanosis or edema. NEUROLOGIC EXAM: Alert and oriented x 3 No focal sensory or strength def icits. Speech normal. Follows commands. PSYCHIATRIC: Mood normal. SKIN: No rash or lesions. - Constitutional Vitals: Temp Pulse Resp BP Pulse Ox 98.8 F 56 L 18 147/41 96 07/02/18 12:00 07/02/18 15:46 07/02/18 12:00 07/02/18 11:31 07/02/18 15:46 General appearance: Present: no acute distress, well-nourished Results - Labs CBC & Chem 7: 06/29/18 07:42 06/29/18 07:42 Labs: Laboratory Last Values WBC 6.4 K/mm3 (4.5-11.0) 06/29/18 07:42 RBC 3.64 M/mm3 (3.65-5.03) L 06/29/18 07:42 Hgb 12.3 gm/dl (11.8-15.2) 06/29/18 07:42 Hct 36.1 % (35.5-45.6) 06/29/18 07:42 MCV 99 fl (84-94) H 06/29/18 07:42 MCH 34 pg (28-32) H 06/29/18 07:42 MCHC 34 % (32-34) 06/29/18 07:42 RDW 13.3 % (13.2-15.2) 06/29/18 07:42 Plt Count 235 K/mm3 (140-440) 06/29/18 07:42 Lymph % (Auto) 26.5 % (13.4-35.0) 06/24/18 08:40 [place] % (Auto) 8.1 % (0.0-7.3) H 06/24/18 08:40 Eos % (Auto) 5.1 % (0.0-4.3) H 06/24/18 08:40 Baso % (Auto) 1.3 % (0.0-1.8) 06/24/18 08:40 Lymph # 1.8 K/mm3 (1.2-5.4) 06/24/18 08:40 [place] # 0.6 K/mm3 (0.0-0.8) 06/24/18 08:40 Eos # 0.3 K/mm3 (0.0-0.4) 06/24/18 08:40 Baso # 0.1 K/mm3 (0.0-0.1) 06/24/18 08:40 Seg Neutrophils % 59.0 % (40.0-70.0) 06/24/18 08:40 Seg Neutrophils # 4.0 K/mm3 (1.8-7.7) 06/24/18 08:40 Sodium 142 mmol/L (137-145) 06/29/18 07:42 Potassium 4.5 mmol/L (3.6-5.0) 06/29/18 07:42 Chloride 108.0 mmol/L (98-107) H 06/29/18 07:42 Carbon Dioxide 24 mmol/L (22-30) 06/29/18 07:42 15 mmol/L 06/29/18 07:42 BUN 14 mg/dL (9-20) 06/29/18 07:42 1.1 mg/dL (0.8-1.5) 06/29/18 07:42 Estimated GFR > 60 ml/min 06/29/18 07:42 13 % 06/29/18 07:42 Glucose 128 mg/dL (75-100) H 06/29/18 07:42 POC Glucose 125 (70-105) H 07/02/18 16:20 Calcium 8.8 mg/dL (8.4-10.2) 06/29/18 07:42 1.80 mg/dL (0.1-1.2) H 06/24/18 08:40 AST 18 units/L (5-40) 06/24/18 08:40 ALT 20 units/L (7-56) 06/24/18 08:40 69 units/L (35-129) 06/24/18 08:40 7.2 g/dL (6.3-8.2) 06/24/18 08:40 3.9 g/dL (3.9-5) 06/24/18 08:40 1.2 % 06/24/18 08:40 Active Medications - Current Medications Current Medications: Generic Name Dose Route Start Last Admin Trade Name Freq PRN Reason Stop Dose Admin Acetaminophen 650 mg 06/23/18 17:32 Tylenol PO Q4H PRN Pain, Mild (1-3) Amlodipine Besylate 10 mg 06/24/18 08:00 07/01/18 08:50 Norvasc PO Not Given QDAY [facility] Aspirin 81 mg 06/24/18 08:00 07/02/18 10:55 Halfprin Ec PO 81 mg QDAY [facility] Administration Atorvastatin Calcium 40 mg 06/23/18 21:00 07/01/18 22:08 Lipitor PO 40 mg QHS [facility] Administration Bisacodyl 10 mg 06/24/18 13:37 Dulcolax [place] QDAY PRN Constipation Clopidogrel Bisulfate 75 mg 06/24/18 08:00 07/02/18 10:55 Plavix PO 75 mg QDAY [facility] Administration Dextrose 50 ml 06/23/18 17:22 D50w (25gm) Syringe IV PRN PRN Hypoglycemia Dextrose 50 ml 07/01/18 18:04 D50w (25gm) Syringe IV PRN PRN Hypoglycemia Enoxaparin Sodium 40 mg 06/24/18 08:00 07/01/18 08:19 Lovenox SUB-Q 40 mg QDAY [facility] Administration Hydralazine HCl 10 mg 07/01/18 18:03 Apresoline IV Q6HR PRN Hypertension Hydralazine HCl 100 mg 07/02/18 14:00 Apresoline PO TID [facility]ANCOIS Insulin Glargine 30 units 06/24/18 10:00 07/02/18 10:21 Lantus SUB-Q 30 units QAM [facility] Administration Insulin Human Lispro 0 unit 06/23/18 22:00 07/01/18 22:09 Humalog SUB-Q 4 unit ACHS [facility] Administration Protocol Lisinopril 20 mg 06/24/18 08:00 07/01/18 17:14 Zestril PO 20 mg QDAY [facility] Administration Oxycodone/Acetaminophen 1 tab 06/23/18 17:32 Percocet 5/325 PO Q6H PRN Pain, Moderate (4-6) Polyethylene Glycol 17 gm 06/26/18 10:41 Miralax 3350 PO QDAY PRN Constipation Tamsulosin HCl 0.4 mg 06/24/18 08:00 07/02/18 10:55 Flomax PO 0.4 mg QDAY [facility] Administration Vitamin B Complex/Vitamin C 1 each 06/24/18 08:00 07/02/18 10:55 Allbee With C PO 1 each QDAY [facility] Administration Nutrition/Malnutrition Assess - Dietary Evaluation Nutrition/Malnutrition Findings: Nutrition Notes Start: 06/30/18 08:55 Freq: Status: Active Protocol: Document 06/30/18 08:56 ELISHA (Rec: 06/30/18 09:01 ELISHA [id number]) Nutrition Notes Need for Assessment generated from: LOS Initial or Follow up Brief Note Current Diagnosis Coronary Artery Disease, Diabetes,Hypertension, Hyperlipidemia Other Pertinent Diagnosis CVA with hemiparesis Current Diet Cardiac/Consistent CHO Height 5 ft 11 in Weight 112 kg [place] Body Weight (kg) 78.18 BMI 34.4 Weight change and time frame Adj Wt for (L) BKA: 119kg Adj BMI: 36.5 Weight Status Obese Subjective/Other Information Pt screened for LOS. He has consumed 79% of meals since admission. Percent of energy/protein needs met: 77% energy 70% pro Is patient on ventilator? No Is Patient Ambulatory and/or Out of Bed Yes REE-([place]-ambulatory/OOB) [ 2485.769 [id number]] Kcal/Kg value to use for calculation 18 Approximate Energy Requirements Using 2016 kcal/Kg Calculation Used for Recommendations Kcal/kg Additional Notes Pro needs 1-1.2g/kg adjBW: 95- 114g/day Fluid needs 1ml/kcal Nutrition Intervention Follow-Up By: 07/07/18 Additional Comments F/U: stable intakes, wt
[2018-07-02] MEDS: LOVENOX SUB-Q SCH (17:37)
[2018-07-03] MEDS: HumaLOG SUB-Q SCH ×4 (07:30→22:58)
--- NOTE | 2018-07-03 08:45 | Progress Note ---
Subjective Date of service: 07/03/18 Principal diagnosis: CVA Interval history: 68-year-old right-hand dominant male who was in normal state of health until he developed right-sided weakness more so on the leg than the arm. No apparent dysarthria or facial droop noted. He was admitted for suspected CVA and underwent scanning via CT head which showed no abnormalities, and later by MRI brain which showed areas consistent with recent infarcts in the parafalcine aspect of the left hemisphere. MRA showed a 50% blockage in the left MCA. Carotid Doppler showed less than 50% stenosis bilaterally. Echocardiogram showed mild dilation of the left ventricular chamber with ventricular hypertroph y, decreased left ventricular systolic function, EF 40-45%, mild aortic stenosis. He was treated for UTI with IV Rocephin. States it has been 3-4 days since last BM. Patient is participating in therapy and making good progress. Taking rest breaks as needed. +BM. Denies pain, palpitations, dyspnea, cough, N/V, or joint pain. Discussed secondary stroke prevention with patient and again. Preparing for discharge early next week. will come in for family training prior to discharge. Continuing to monitor blood pressure and glucose levels on current dosing. Appreciate hospitalist assistance with management. Continues to do fairly well from a therapy standpoint and plan DC next week. All records, vitals, labs and medications were reviewed. No other issues per patient, nursing or therapy. Objective - Exam Narrative Exam: MUSCULOSKELETAL SPECIALTY EXAM CONSTITUTIONAL: Well developed, well nourished, appropriately groomed. RIGHT hand dominant. RESPIRATORY: Clear to auscultation bilaterally, no increased work of breathing CARDIOVASCULAR: Regular Rate/ Rhythm, no swelling, edema or tenderness in BUE or BLE. All extremities warm. GI: + bowel sounds, soft, NTTP, nondistended. INTEGUMENTARY: Normal, no lesion, rash, masses or bruising noted in extremities. MUSCULOSKELETAL: BUE and RLE normal without defect, crepitus, subluxation, effusion, arthritic changes or TTP. Left BKA with prosthesis on SA EF WE EE FF FA HF KE ADF EHL APF R 4+/5 4+/5 4+/5 4+/5 4+/5 4+/5 4-/5 4-/5 4-/5 4- /5 4-/5 L 5/5 5/5 5/5 5/5 5/5 5/5 5/5 5/5 5/5 5/5 5/5 ROM full Tone normal NEURO: CN II - XII grossly intact Sensation intact in all extremities without extinction. No tremor noted in 4 extremities. Naming and repetition intact. Follows 2 step commands. Aphasia not appreciated Dysarthria not appreciated Dysphagia not present Neglect not appreciated POSTURE and GAIT: Sitting posture good. Balance appears reasonable. Gait functional without LOB . PSYCH: Alert, orientated x3, affect appears euthymic. Insight appears intact. - Constitutional Vitals: Vital Signs - 12hr 07/02/18 07/03/18 07/03/18 23:19 04:45 04:50 Temperature 37.1 C 36.6 C Pulse Rate 56 L 56 L Respiratory 18 18 Rate Blood Pressure 163/68 129/59 Blood Pressure [Right] O2 Sat by Pulse 95 100 Oximetry 07/03/18 07:35 Temperature 36.6 C Pulse Rate 56 L Respiratory 19 Rate Blood Pressure Blood Pressure 147/60 [Right] O2 Sat by Pulse 98 Oximetry - Allied health notes Allied health notes reviewed: nursing, PT, OT FIMS assessment as documented by PT/OT/ST: Grooming Patient cleans teeth/dentures: Yes Patient bolden/brushes hair: Yes Patient washes, rinses and Yes dries face: Patient washes, rinses and Yes dries hands: Patient shaves: Yes Patient applies make-up: No Patient performs (no make-up/ 05/20 (100%) shaving): Patient performs (w/ make-up/ 06/20 (100%) shaving): Grooming FIM Score 6. Modified [place] (Needs equipment/device . Extra time.) Toileting Toileting Device Bedside Commode Patient able to: Adjust clothes before,Clean self,Adjust clothes after Patient able to perform: 3/3 (100%) Toileting FIM Score 5. Supv./Set-Up (Needs stand-by, set-up, applying prosth/orth.) Social interaction/Memory/Problem solving Social Interaction FIM Score 6. Mod. [place] (Mostly appropriate. May need meds. No supv.) Memory FIM Score 6. Modified [place](Mild difficulty remembering people/routines.) Problem Solving FIM Score 6. Mod. [place] (Mild difficulty or needs more time w/ complex.) Transfers Mode of Locomotion: Wheelchair Bed/Chair/Wheelchair Transfers 6. Modified [place] (Uses device, sliding FIM Score board, prosth./orth.) Toilet Transfers FIM Score 4. Minimal Assistance (Patient = 75% or more. Needs touching.) Patient transferred to: Shower Shower Transfers FIM Score 4. Minimal Assistance (Patient = 75% or more. Needs touching.) Locomotion- Stairs Device used on Stairs Handrail/s Number of Stairs Ascended/ 4 Descended Patient used handrail/support: Yes Stairs FIM Score 4. Minimal Assistance (Patient = 75% or more, touching. 12-14 stairs.) Locomotion- walk/wheelchair Most Frequent Mode of Walking Locomotion: Ambulation Distance 170 Walking FIM Score 4. Minimal Assistance (Patient = 75% or more. Minimum of 150 ft.) Wheelchair Propulsion Distance 350 Wheelchair FIM Score 6. Modified [place] (Wheels a minimum of 150 ft.) Eating Eating FIM Score 6. Modified [place] (Special consistency or uses device.) Dressing-Upper body Patient retrieves clothing Yes items: Patient applies/removes UE Yes prosthesis or orthosis: Upper Body Dressing FIM Score 6. Modified [place] (Needs equipment, velcro or pros./orth.) Dressing-lower body Patient retrieves clothing Yes items: Patient applies/removes LE Yes prosthesis or orthosis: Lower Body Dressing FIM Score 6. Modified [place] (Needs equipment, velcro or pros./orth.) - Labs CBC & Chem 7: 07/05/18 12:35 07/05/18 12:35 Labs: Laboratory Results - last 72 hr 06/30/18 06/30/18 06/30/18 12:15 16:14 21:02 POC Glucose 99 162 H 158 H 07/01/18 07/01/18 07/01/18 07:39 11:34 16:21 POC Glucose 100 107 H 216 H 07/01/18 07/02/18 07/02/18 21:45 08:02 12:08 POC Glucose 188 H 84 199 H 07/02/18 07/02/18 16:20 21:42 POC Glucose 125 H 276 H Assessment and Plan I69.351 CVA with hemiparesis affecting right dominant side: Continue therapy as below, continue secondary stroke prevention. monitor for worsening neurologic function, post stroke depression, shoulder-hand syndrome, spasticity. Discussed with patient and prognosis as well as timeline for recovery and secondary stroke prevention. I10 hypertension: Continue medications adjust medications as needed for normotension. E11.9 diabetes: Continue medications and carb control diet. Adjust insulin as needed K59.00 constipation: Start MiraLAX and suppository, monitor for improvement. R39.11 BPH: Continue Flomax Z89.512 left BKA history: Monitor residual limb for any wounds, sure that patient is able to properly maintain, don and doff, and utilize prosthesis safely. Monitor for any balance issues. Z73.6 ADL dysfunction: OT will work on improving ability to perform ADLs (including assistive devices) to increase independence and decrease caregiver burden and improve functional transfers and mobility training. R26.2 Difficulty walking: PT will work on gait training and proper use of assistive devices and advance as appropriate to use of stairs and outside ambulation on uneven surfaces. R26.81 Unsteadiness on feet: PT will work on improving static and dynamic sitting and standing balance as well as proper use of assistive devices to decrease risk of falls. R26.89 Abnormality of gait: PT will work to improve safety and efficiency of gait through neuromotor training and gait training along with instruction on proper use of assistive devices. M62.81 Muscle weakness: PT & OT will work on strengthening exercises to improve functional strength including mixture of closed and open kinetic chain exercises. R53.81 Debility: PT & OT will work on improving overall functional status to improve participation with ADLs, mobility and social involvement. R53.83 Fatigue: PT & OT will work on improving endurance through aerobic exercises and therapeutic activity while monitoring patients tolerance for activity and vital signs as needed. Internal medicine consult for hypertension and diabetes management DVT ppx: Lovenox Pain: Continue physical modalities in therapy and pain medications as needed to achieve functional pain control. Sleep: Monitor and address as needed. Bowel: Monitor and address as needed. Appetite: Monitor and address as needed. Discharge planning: Pending therapy progress and care plan meeting. Will continue discussion with therapy team, SW, patient and family. Restrictions/ Precautions: Falls WB status: FWB Functional Hx: ADLs: Independent Cognition: Independent Mobility: No AD Barriers to Discharge: Decreased mobility and ability to perform self care, balance deficits, weakness, difficulty donning and doffing prosthesis Estimated Length of Stay: 14-21 days Discharge Destination: Home with family
--- NOTE | 2018-07-03 09:04 | Progress Note ---
Assessment and Plan Assessment and plan: 68 YO Male with CAD, DM, HTN, HLD, BPH, CVA with RHP admitted to IRU. Consult placed by Dr. [place] for medical management of HTN, DM. Pt seen and evaluated in his room. Pt resting comfortably, sitting in a chair next to his eating dinner. Pt denies fever, chills, CP, Palpitations, NVD, Trauma, Productive cough, hematuria, headache, or recent ill contacts. Pt participating in physical therapy. No reported nursing events. Hypertension: Improved with adjustment of hydaralazine to home dose DM: stable, continue ADA diet and sliding scale with accu check HLP: Continue statin CVA: Management per IRU team, Continue antiplatelet and Rehab Bradycardia: asymptomatic. Recommend outpatient cardiology eval DVT/GI prophy Plan discussed with the patient in detail History Interval history: Patient seen and examined today reports improvement. No new complaints today. Hospitalist Physical - Physical exam Narrative exam: VITAL SIGNS: Reviewed. GENERAL: The patient appeared well nourished and normally developed, Vital signs as documented. HEAD: No signs of head trauma. EYES: Pupils are equal. Extraocular motions intact. EARS: Hearing grossly intact. MOUTH: Oropharynx is normal. NECK: No adenopathy, no JVD. Mildly tender on the right side. CHEST: Chest with clear breath sounds bilaterally. No wheezes, rales, or rhonchi. CARDIAC: Regular rate and rhythm. S1 and S2, without murmurs, gallops, or rubs. VASCULAR: No Edema. Peripheral pulses normal and equal in all extremities. ABDOMEN: Soft, non tender and non distended. No rebound or guarding, and no masses palpated. Bowel Sounds normal. MUSCULOSKELETAL: Left BKA with prosthesis Extremities without clubbing, cyanosis or edema. NEUROLOGIC EXAM: Alert and oriented x 3 No focal sensory or strength deficits. Speech normal. Follows commands. PSYCHIATRIC: Mood normal. SKIN: No rash or lesions. - Constitutional Vitals: Temp Pulse Resp BP Pulse Ox 97.8 F 56 L 19 147/60 98 07/03/18 07:35 07/03/18 07:35 07/03/18 07:35 07/03/18 07:35 07/03/18 07:35 General appearance: Present: no acute distress, well-nourished Results - Labs CBC & Chem 7: 06/29/18 07:42 06/29/18 07:42 Labs: Laboratory Last Values WBC 6.4 K/mm3 (4.5-11.0) 06/29/18 07:42 RBC 3.64 M/mm3 (3.65-5.03) L 06/29/18 07:42 Hgb 12.3 gm/dl (11.8-15.2) 06/29/18 07:42 Hct 36.1 % (35.5-45.6) 06/29/18 07:42 MCV 99 fl (84-94) H 06/29/18 07:42 MCH 34 pg (28-32) H 06/29/18 07:42 MCHC 34 % (32-34) 06/29/18 07:42 RDW 13.3 % (13.2-15.2) 06/29/18 07:42 Plt Count 235 K/mm3 (140-440) 06/29/18 07:42 Lymph % (Auto) 26.5 % (13.4-35.0) 06/24/18 08:40 [place] % (Auto) 8.1 % (0.0-7.3) H 06/24/18 08:40 Eos % (Auto) 5.1 % (0.0-4.3) H 06/24/18 08:40 Baso % (Auto) 1.3 % (0.0-1.8) 06/24/18 08:40 Lymph # 1.8 K/mm3 (1.2-5.4) 06/24/18 08:40 [place] # 0.6 K/mm3 (0.0-0.8) 06/24/18 08:40 Eos # 0.3 K/mm3 (0.0-0.4) 06/24/18 08:40 Baso # 0.1 K/mm3 (0.0-0.1) 06/24/18 08:40 Seg Neutrophils % 59.0 % (40.0-70.0) 06/24/18 08:40 Seg Neutrophils # 4.0 K/mm3 (1.8-7.7) 06/24/18 08:40 Sodium 142 mmol/L (137-145) 06/29/18 07:42 Potassium 4.5 mmol/L (3.6-5.0) 06/29/18 07:42 Chloride 108.0 mmol/L (98-107) H 06/29/18 07:42 Carbon Dioxide 24 mmol/L (22-30) 06/29/18 07:42 15 mmol/L 06/29/18 07:42 BUN 14 mg/dL (9-20) 06/29/18 07:42 1.1 mg/dL (0.8-1.5) 06/29/18 07:42 Estimated GFR > 60 ml/min 06/29/18 07:42 13 % 06/29/18 07:42 Glucose 128 mg/dL (75-100) H 06/29/18 07:42 POC Glucose 276 (70-105) H 07/02/18 21:42 Calcium 8.8 mg/dL (8.4-10.2) 06/29/18 07:42 1.80 mg/dL (0.1-1.2) H 06/24/18 08:40 AST 18 units/L (5-40) 06/24/18 08:40 ALT 20 units/L (7-56) 06/24/18 08:40 69 units/L (35-129) 06/24/18 08:40 7.2 g/dL (6.3-8.2) 06/24/18 08:40 3.9 g/dL (3.9-5) 06/24/18 08:40 1.2 % 06/24/18 08:40 Active Medications - Current Medications Current Medications: Generic Name Dose Route Start Last Admin Trade Name Freq PRN Reason Stop Dose Admin Acetaminophen 650 mg 06/23/18 17:32 Tylenol PO Q4H PRN Pain, Mild (1-3) Amlodipine Besylate 10 mg 06/24/18 08:00 07/02/18 08:38 Norvasc PO Not Given QDAY FRANCOIS Aspirin 81 mg 06/24/18 08:00 07/02/18 10:55 Halfprin Ec PO 81 mg QDAY FRANCOIS Administration Atorvastatin Calcium 40 mg 06/23/18 21:00 07/02/18 21:00 Lipitor PO 40 mg QHS FRANCOIS Administration Bisacodyl 10 mg 06/24/18 13:37 Dulcolax [place] QDAY PRN Constipation Clopidogrel Bisulfate 75 mg 06/24/18 08:00 07/02/18 10:55 Plavix PO 75 mg QDAY FRANCOIS Administration Dextrose 50 ml 06/23/18 17:22 D50w (25gm) Syringe IV PRN PRN Hypoglycemia Dextrose 50 ml 07/01/18 18:04 D50w (25gm) Syringe IV PRN PRN Hypoglycemia Enoxaparin Sodium 40 mg 06/24/18 08:00 07/02/18 17:37 Lovenox SUB-Q Not Given QDAY FRANCOIS Hydralazine HCl 10 mg 07/01/18 18:03 Apresoline IV Q6HR PRN Hypertension Hydralazine HCl 100 mg 07/02/18 14:00 07/02/18 20:00 Apresoline PO 100 mg TID FRANCOIS Administration Insulin Glargine 30 units 06/24/18 10:00 07/02/18 10:21 Lantus SUB-Q 30 units QAM FRANCOIS Administration Insulin Human Lispro 0 unit 06/23/18 22:00 07/02/18 16:49 Humalog SUB-Q Not Given ACHS [facility] Protocol Lisinopril 20 mg 06/24/18 08:00 07/02/18 09:41 Zestril PO Not Given QDAY FRANCOIS Oxycodone/Acetaminophen 1 tab 06/23/18 17:32 Percocet 5/325 PO Q6H PRN Pain, Moderate (4-6) Polyethylene Glycol 17 gm 06/26/18 10:41 Miralax 3350 PO QDAY PRN Constipation Tamsulosin HCl 0.4 mg 06/24/18 08:00 07/02/18 10:55 Flomax PO 0.4 mg QDAY FRANCOIS Administration Vitamin B Complex/Vitamin C 1 each 06/24/18 08:00 07/02/18 10:55 [place] With C PO 1 each QDAY FRANCOIS Administration Nutrition/Malnutrition Assess - Dietary Evaluation Nutrition/Malnutrition Findings: Nutrition Notes Start: 06/30/18 08:55 Freq: Status: Active Protocol: Document 06/30/18 08:56 ELISHA (Rec: 06/30/18 09:01 ELISHA [id number] [email or web address]) Nutrition Notes Need for Assessment generated from: LOS Initial or Follow up Brief Note Current Diagnosis Coronary Artery Disease, Diabetes,Hypertension, Hyperlipidemia Other Pertinent Diagnosis CVA with hemiparesis Current Diet Cardiac/Consistent CHO Height 5 ft 11 in Weight 112 kg [place] Body Weight (kg) 78.18 BMI 34.4 Weight change and time frame Adj Wt for (L) BKA: 119kg Adj BMI: 36.5 Weight Status Obese Subjective/Other Information Pt screened for LOS. He has consumed 79% of meals since admission. Percent of energy/protein needs met: 77% energy 70% pro Is patient on ventilator? No Is Patient Ambulatory and/or Out of Bed Yes REE-([place] or-ambulatory/OOB) [ 2485.769 NUTR.MSJOOB] Kcal/Kg value to use for calculation 18 Approximate Energy Requirements Using 2016 kcal/Kg Calculation Used for Recommendations Kcal/kg Additional Notes Pro needs 1-1.2g/kg adjBW: 95- 114g/day Fluid needs 1ml/kcal Nutrition Intervention Follow-Up By: 07/07/18 Additional Comments F/U: stable intakes, wt
[2018-07-03] MEDS: LANTUS SUB-Q SCH (10:00)
[2018-07-03] MEDS: ALLBEE WITH C PO SCH (10:33)
[2018-07-03] MEDS: PLAVIX PO SCH (10:34)
[2018-07-03] MEDS: HALFPRIN EC PO SCH (10:34)
[2018-07-03] MEDS: LOVENOX SUB-Q SCH (10:34)
[2018-07-03] MEDS: FLOMAX PO SCH (10:34)
[2018-07-03] MEDS: APRESOLINE PO SCH ×3 (10:57→21:23)
[2018-07-03] MEDS: NORVASC PO SCH (10:57)
[2018-07-03] MEDS: ZESTRIL PO SCH (10:57)
[2018-07-04] MEDS: HumaLOG SUB-Q SCH ×4 (08:06→21:36)
[2018-07-04] MEDS: ZESTRIL PO SCH (08:07)
[2018-07-04] MEDS: PLAVIX PO SCH (08:07)
[2018-07-04] MEDS: LOVENOX SUB-Q SCH (08:08)
[2018-07-04] MEDS: FLOMAX PO SCH (08:08)
[2018-07-04] MEDS: NORVASC PO SCH (08:08)
[2018-07-04] MEDS: ALLBEE WITH C PO SCH (08:08)
[2018-07-04] MEDS: HALFPRIN EC PO SCH (08:08)
[2018-07-04] MEDS: APRESOLINE PO SCH ×3 (08:09→21:37)
[2018-07-04] MEDS: LANTUS SUB-Q SCH ×2 (08:15→10:05)
--- NOTE | 2018-07-04 10:05 | Progress Note ---
Assessment and Plan Assessment and plan: 68 YO Male with CAD, DM, HTN, HLD, BPH, CVA with RHP admitted to IRU. Consult placed by Dr. [place] for medical management of HTN, DM. Pt seen and evaluated in his room. Pt resting comfortably, sitting in a chair next to his eating dinner. Pt denies fever, chills, CP, Palpitations, NVD, Trauma, Productive cough, hematuria, headache, or recent ill contacts. Pt participating in physical therapy. No reported nursing events. Hypertension: Improved with adjustment of hydaralazine to home dose DM: stable, continue ADA diet and sliding scale with accu check HLP: Continue statin CVA: Management per IRU team, Continue antiplatelet and Rehab Bradycardia: asymptomatic. IMPROVED. Still Recommend outpatient cardiology eval DVT/GI prophy Plan discussed with the patient in detail Will sign off at this time. Please reconsult if needed History Interval history: Patient seen and examined today reports improvement. No new complaints today. Hospitalist Physical - Physical exam Narrative exam: VITAL SIGNS: Reviewed. GENERAL: The patient appeared well nourished and normally developed, Vital signs as documented. HEAD: No signs of head trauma. EYES: Pupils are equal. Extraocular motions intact. EARS: Hearing grossly intact. MOUTH: Oropharynx is normal. NECK: No adenopathy, no JVD. Mildly tender on the right side. CHEST: Chest with clear breath sounds bilaterally. No wheezes, rales, or rhonchi. CARDIAC: Regular rate and rhythm. S1 and S2, without murmurs, gallops, or rubs. VASCULAR: No Edema. Peripheral pulses normal and equal in all extremities. ABDOMEN: Soft, non tender and non distended. No rebound or guarding, and no masses palpated. Bowel Sounds normal. MUSCULOSKELETAL: Left BKA with prosthesis Extremities without clubbing, cyanosis or edema. NEUROLOGIC EXAM: Alert and oriented x 3 No focal sensory or strength deficits. Speech normal. Follows commands. PSYCHIATRIC: Mood normal. SKIN: No rash or lesions. - Constitutional Vitals: Temp Pulse Resp BP Pulse Ox 98.3 F 71 18 121/75 95 07/04/18 07:30 07/04/18 08:08 07/04/18 07:30 07/04/18 08:08 07/04/18 07:30 General appearance: Present: no acute distress, well-nourished Results - Labs CBC & Chem 7: 06/29/18 07:42 06/29/18 07:42 Labs: Laboratory Last Values WBC 6.4 K/mm3 (4.5-11.0) 06/29/18 07:42 RBC 3.64 M/mm3 (3.65-5.03) L 06/29/18 07:42 Hgb 12.3 gm/dl (11.8-15.2) 06/29/18 07:42 Hct 36.1 % (35.5-45.6) 06/29/18 07:42 MCV 99 fl (84-94) H 06/29/18 07:42 MCH 34 pg (28-32) H 06/29/18 07:42 MCHC 34 % (32-34) 06/29/18 07:42 RDW 13.3 % (13.2-15.2) 06/29/18 07:42 Plt Count 235 K/mm3 (140-440) 06/29/18 07:42 Lymph % (Auto) 26.5 % (13.4-35.0) 06/24/18 08:40 [place] % (Auto) 8.1 % (0.0-7.3) H 06/24/18 08:40 Eos % (Auto) 5.1 % (0.0-4.3) H 06/24/18 08:40 Baso % (Auto) 1.3 % (0.0-1.8) 06/24/18 08:40 Lymph # 1.8 K/mm3 (1.2-5.4) 06/24/18 08:40 [place] # 0.6 K/mm3 (0.0-0.8) 06/24/18 08:40 Eos # 0.3 K/mm3 (0.0-0.4) 06/24/18 08:40 Baso # 0.1 K/mm3 (0.0-0.1) 06/24/18 08:40 Seg Neutrophils % 59.0 % (40.0-70.0) 06/24/18 08:40 Seg Neutrophils # 4.0 K/mm3 (1.8-7.7) 06/24/18 08:40 Sodium 142 mmol/L (137-145) 06/29/18 07:42 Potassium 4.5 mmol/L (3.6-5.0) 06/29/18 07:42 Chloride 108.0 mmol/L (98-107) H 06/29/18 07:42 Carbon Dioxide 24 mmol/L (22-30) 06/29/18 07:42 15 mmol/L 06/29/18 07:42 BUN 14 mg/dL (9-20) 06/29/18 07:42 1.1 mg/dL (0.8-1.5) 06/29/18 07:42 Estimated GFR > 60 ml/min 06/29/18 07:42 13 % 06/29/18 07:42 Glucose 128 mg/dL (75-100) H 06/29/18 07:42 POC Glucose 97 (70-105) 07/04/18 07:25 Calcium 8.8 mg/dL (8.4-10.2) 06/29/18 07:42 1.80 mg/dL (0.1-1.2) H 06/24/18 08:40 AST 18 units/L (5-40) 06/24/18 08:40 ALT 20 units/L (7-56) 06/24/18 08:40 69 units/L (35-129) 06/24/18 08:40 7.2 g/dL (6.3-8.2) 06/24/18 08:40 3.9 g/dL (3.9-5) 06/24/18 08:40 1.2 % 06/24/18 08:40 Active Medications - Current Medications Current Medications: Generic Name Dose Route Start Last Admin Trade Name Freq PRN Reason Stop Dose Admin Acetaminophen 650 mg 06/23/18 17:32 Tylenol PO Q4H PRN Pain, Mild (1-3) Amlodipine Besylate 10 mg 06/24/18 08:00 07/04/18 08:08 Norvasc PO 10 mg QDAY FRANCOIS Administration Aspirin 81 mg 06/24/18 08:00 07/04/18 08:08 Halfprin Ec PO 81 mg QDAY FRANCOIS Administration Atorvastatin Calcium 40 mg 06/23/18 21:00 07/03/18 21:20 Lipitor PO 40 mg QHS FRANCOIS Administration Bisacodyl 10 mg 06/24/18 13:37 Dulcolax [place] QDAY PRN Constipation Clopidogrel Bisulfate 75 mg 06/24/18 08:00 07/04/18 08:07 Plavix PO 75 mg QDAY FRANCOIS Administration Dextrose 50 ml 06/23/18 17:22 D50w (25gm) Syringe IV PRN PRN Hypoglycemia Dextrose 50 ml 07/01/18 18:04 D50w (25gm) Syringe IV PRN PRN Hypoglycemia Enoxaparin Sodium 40 mg 06/24/18 08:00 07/04/18 08:08 Lovenox SUB-Q 40 mg QDAY FRANCOIS Administration Hydralazine HCl 10 mg 07/01/18 18:03 Apresoline IV Q6HR PRN Hypertension Hydralazine HCl 100 mg 07/02/18 14:00 07/04/18 08:09 Apresoline PO 100 mg TID FRANCOIS Administration Insulin Glargine 30 units 06/24/18 10:00 07/04/18 08:15 Lantus SUB-Q 30 units QAM FRANCOIS Administration Insulin Human Lispro 0 unit 06/23/18 22:00 07/04/18 08:06 Humalog SUB-Q Not Given ACHS [facility] Protocol Lisinopril 20 mg 06/24/18 08:00 07/04/18 08:07 Zestril PO 20 mg QDAY FRANCOIS Administration Oxycodone/Acetaminophen 1 tab 06/23/18 17:32 Percocet 5/325 PO Q6H PRN Pain, Moderate (4-6) Polyethylene Glycol 17 gm 06/26/18 10:41 Miralax 3350 PO QDAY PRN Constipation Tamsulosin HCl 0.4 mg 06/24/18 08:00 07/04/18 08:08 Flomax PO 0.4 mg QDAY FRANCOIS Administration Vitamin B Complex/Vitamin C 1 each 06/24/18 08:00 07/04/18 08:08 [place] With C PO 1 each QDAY FRANCOIS Administration Nutrition/Malnutrition Assess - Dietary Evaluation Nutrition/Malnutrition Findings: Nutrition Notes Start: 06/30/18 08:55 Freq: Status: Active Protocol: Document 06/30/18 08:56 ELISHA (Rec: 06/30/18 09:01 ELISHA [id number] [email or web address]) Nutrition Notes Need for Assessment generated from: LOS Initial or Follow up Brief Note Current Diagnosis Coronary Artery Disease, Diabetes,Hypertension, Hyperlipidemia Other Pertinent Diagnosis CVA with hemiparesis Current Diet Cardiac/Consistent CHO Height 5 ft 11 in Weight 112 kg [place] Body Weight (kg) 78.18 BMI 34.4 Weight change and time frame Adj Wt for (L) YENI: 119kg Adj BMI: 36.5 Weight Status Obese Subjective/Other Information Pt screened for LOS. He has consumed 79% of meals since admission. Percent of energy/protein needs met: 77% energy 70% pro Is patient on ventilator? No Is Patient Ambulatory and/or Out of Bed Yes REE-([place]-ambulatory/OOB) [ 2485.769 NUTR.MSJOOB] Kcal/Kg value to use for calculation 18 Approximate Energy Requirements Using 2016 kcal/Kg Calculation Used for Recommendations Kcal/kg Additional Notes Pro needs 1-1.2g/kg adjBW: 95- 114g/day Fluid needs 1ml/kcal Nutrition Intervention Follow-Up By: 07/07/18 Additional Comments F/U: stable intakes, wt
[2018-07-05] MEDS: HumaLOG SUB-Q SCH ×5 (08:00→22:37)
[2018-07-05] MEDS: HALFPRIN EC PO SCH (09:42)
[2018-07-05] MEDS: FLOMAX PO SCH (09:42)
[2018-07-05] MEDS: PLAVIX PO SCH (09:42)
[2018-07-05] MEDS: LOVENOX SUB-Q SCH (09:42)
[2018-07-05] MEDS: ALLBEE WITH C PO SCH (09:42)
[2018-07-05] MEDS: LANTUS SUB-Q SCH (09:47)
[2018-07-05] MEDS: APRESOLINE PO SCH ×3 (11:59→22:37)
[2018-07-05] MEDS: NORVASC PO SCH (11:59)
[2018-07-05] MEDS: ZESTRIL PO SCH (12:02)
[2018-07-05 13:25] LABS: Hematocrit 36.8 % (35.5-45.6); Hemoglobin 12.4 gm/dl (11.8-15.2); Mean Corpuscular HGB Conc 34 % (32-34); Mean Corpuscular Volume 99 fl (84-94); Platelet Count 234 K/mm3 (140-440); Red Blood Count 3.71 M/mm3 (3.65-5.03); Red Cell Distribution Width 13.2 % (13.2-15.2)
[2018-07-05 13:48] LABS: BUN/Creatinine Ratio 12; Blood Urea Nitrogen 13 mg/dL (9-20); Calcium 8.7 mg/dL (8.4-10.2); Hemolysis Index 4
--- NOTE | 2018-07-05 15:44 | Progress Note ---
Assessment and Plan Assessment and plan: 68 YO Male with CAD, DM, HTN, HLD, BPH, CVA with RHP admitted to IRU. Consult placed by Dr. [place] for medical management of HTN, DM. Pt seen and evaluated in his room. Pt resting comfortably, sitting in a chair next to his eating dinner. Pt denies fever, chills, CP, Palpitations, NVD, Trauma, Productive cough, hematuria, headache, or recent ill contacts. Pt participating in physical therapy. No reported nursing events. Hypertension: Improved with adjustment of hydaralazine to home dose DM: stable, continue ADA diet and sliding scale with accu check HLP: Continue statin CVA: Management per IRU team, Continue antiplatelet and Rehab Bradycardia: asymptomatic. IMPROVED. Still Recommend outpatient cardiology eval DVT/GI prophy Plan discussed with the patient in detail will follow prn as needed History Interval history: Patient seen and examined today reports improvement. No new complaints today. Hospitalist Physical - Physical exam Narrative exam: VITAL SIGNS: Reviewed. GENERAL: The patient appeared well nourished and normally developed, Vital signs as documented. HEAD: No signs of head trauma. EYES: Pupils are equal. Extraocular motions intact. EARS: Hearing grossly intact. MOUTH: Oropharynx is normal. NECK: No adenopathy, no JVD. Mildly tender on the right side. CHEST: Chest with clear breath sounds bilaterally. No wheezes, rales, or rhonchi. CARDIAC: Regular rate and rhythm. S1 and S2, without murmurs, gallops, or rubs. VASCULAR: No Edema. Peripheral pulses normal and equal in all extremities. ABDOMEN: Soft, non tender and non distended. No rebound or guarding, and no masses palpated. Bowel Sounds normal. MUSCULOSKELETAL: Left BKA with prosthesis Extremities without clubbing, cyanosis or edema. NEUROLOGIC EXAM: Alert and oriented x 3 No focal sensory or strength deficits. Speech normal. Follows commands. PSYCHIATRIC: Mood normal. SKIN: No rash or lesions. - Constitutional Vitals: Temp Pulse Resp BP Pulse Ox 98.9 F 58 L 18 159/63 97 07/05/18 12:00 07/05/18 12:00 07/05/18 12:00 07/05/18 12:00 07/05/18 12:00 General appearance: Present: no acute distress, well-nourished Results - Labs CBC & Chem 7: 07/05/18 12:35 07/05/18 12:35 Labs: Laboratory Last Values WBC 6.1 K/mm3 (4.5-11.0) 07/05/18 12:35 RBC 3.71 M/mm3 (3.65-5.03) 07/05/18 12:35 Hgb 12.4 gm/dl (11.8-15.2) 07/05/18 12:35 Hct 36.8 % (35.5-45.6) 07/05/18 12:35 MCV 99 fl (84-94) H 07/05/18 12:35 MCH 34 pg (28-32) H 07/05/18 12:35 MCHC 34 % (32-34) 07/05/18 12:35 RDW 13.2 % (13.2-15.2) 07/05/18 12:35 Plt Count 234 K/mm3 (140-440) 07/05/18 12:35 Lymph % (Auto) 26.5 % (13.4-35.0) 06/24/18 08:40 [place] % (Auto) 8.1 % (0.0-7.3) H 06/24/18 08:40 Eos % (Auto) 5.1 % (0.0-4.3) H 06/24/18 08:40 Baso % (Auto) 1.3 % (0.0-1.8) 06/24/18 08:40 Lymph # 1.8 K/mm3 (1.2-5.4) 06/24/18 08:40 [place] # 0.6 K/mm3 (0.0-0.8) 06/24/18 08:40 Eos # 0.3 K/mm3 (0.0-0.4) 06/24/18 08:40 Baso # 0.1 K/mm3 (0.0-0.1) 06/24/18 08:40 Seg Neutrophils % 59.0 % (40.0-70.0) 06/24/18 08:40 Seg Neutrophils # 4.0 K/mm3 (1.8-7.7) 06/24/18 08:40 Sodium 138 mmol/L (137-145) 07/05/18 12:35 Potassium 4.2 mmol/L (3.6-5.0) 07/05/18 12:35 Chloride 101.9 mmol/L (98-107) 07/05/18 12:35 Carbon Dioxide 24 mmol/L (22-30) 07/05/18 12:35 16 mmol/L 07/05/18 12:35 BUN 13 mg/dL (9-20) 07/05/18 12:35 1.1 mg/dL (0.8-1.5) 07/05/18 12:35 Estimated GFR > 60 ml/min 07/05/18 12:35 12 % 07/05/18 12:35 Glucose 119 mg/dL (75-100) H 07/05/18 12:35 POC Glucose 120 (70-105) H 07/05/18 11:16 Calcium 8.7 mg/dL (8.4-10.2) 07/05/18 12:35 1.80 mg/dL (0.1-1.2) H 06/24/18 08:40 AST 18 units/L (5-40) 06/24/18 08:40 ALT 20 units/L (7-56) 06/24/18 08:40 69 units/L (35-129) 06/24/18 08:40 7.2 g/dL (6.3-8.2) 06/24/18 08:40 3.9 g/dL (3.9-5) 06/24/18 08:40 1.2 % 06/24/18 08:40 Active Medications - Current Medications Current Medications: Generic Name Dose Route Start Last Admin Trade Name Freq PRN Reason Stop Dose Admin Acetaminophen 650 mg 06/23/18 17:32 Tylenol PO Q4H PRN Pain, Mild (1-3) Amlodipine Besylate 10 mg 06/24/18 08:00 07/05/18 11:59 Norvasc PO 10 mg QDAY FRANCOIS Administration Aspirin 81 mg 06/24/18 08:00 07/05/18 09:42 Halfprin Ec PO 81 mg QDAY FRANCOIS Administration Atorvastatin Calcium 40 mg 06/23/18 21:00 07/04/18 21:37 Lipitor PO 40 mg QHS FRANCOIS Administration Bisacodyl 10 mg 06/24/18 13:37 Dulcolax SC QDAY PRN Constipation Clopidogrel Bisulfate 75 mg 06/24/18 08:00 07/05/18 09:42 Plavix PO 75 mg QDAY FRANCOIS Administration Dextrose 50 ml 06/23/18 17:22 D50w (25gm) Syringe IV PRN PRN Hypoglycemia Dextrose 50 ml 07/01/18 18:04 D50w (25gm) Syringe IV PRN PRN Hypoglycemia Enoxaparin Sodium 40 mg 06/24/18 08:00 07/05/18 09:42 Lovenox SUB-Q 40 mg QDAY FRANCOIS Administration Hydralazine HCl 10 mg 07/01/18 18:03 Apresoline IV Q6HR PRN Hypertension Hydralazine HCl 100 mg 07/02/18 14:00 07/05/18 11:59 Apresoline PO 100 mg TID FRANCOIS Administration Insulin Glargine 30 units 06/24/18 10:00 07/05/18 09:47 Lantus SUB-Q Not Given QAM [facility] Insulin Human Lispro 0 unit 06/23/18 22:00 07/05/18 11:59 Humalog SUB-Q Not Given ACHS [facility] Protocol Lisinopril 20 mg 06/24/18 08:00 07/05/18 12:02 Zestril PO 20 mg QDAY FRANCOIS Administration Oxycodone/Acetaminophen 1 tab 06/23/18 17:32 Percocet 5/325 PO Q6H PRN Pain, Moderate (4-6) Polyethylene Glycol 17 gm 06/26/18 10:41 Miralax 3350 PO QDAY PRN Constipation Tamsulosin HCl 0.4 mg 06/24/18 08:00 07/05/18 09:42 Flomax PO 0.4 mg QDAY FRANCOIS Administration Vitamin B Complex/Vitamin C 1 each 06/24/18 08:00 07/05/18 09:42 Allbee With C PO 1 each QDAY FRANCOIS Administration Nutrition/Malnutrition Assess - Dietary Evaluation Nutrition/Malnutrition Findings: Nutrition Notes Start: 06/30/18 08:55 Freq: Status: Active Protocol: Document 06/30/18 08:56 ELISHA (Rec: 06/30/18 09:01 ELISHA [id number] [email or web address]) Nutrition Notes Need for Assessment generated from: LOS Initial or Follow up Brief Note Current Diagnosis Coronary Artery Disease, Diabetes,Hypertension, Hyperlipidemia Other Pertinent Diagnosis CVA with hemiparesis Current Diet Cardiac/Consistent CHO Height 5 ft 11 in Weight 112 kg [place] Body Weight (kg) 78.18 BMI 34.4 Weight change and time frame Adj Wt for (L) BKA: 119kg Adj BMI: 36.5 Weight Status Obese Subjective/Other Information Pt screened for LOS. He has consumed 79% of meals since admission. Percent of energy/protein needs met: 77% energy 70% pro Is patient on ventilator? No Is Patient Ambulatory and/or Out of Bed Yes REE-([facility]-ambulatory/OOB) [ 2485.769 NUTR.MSJOOB] Kcal/Kg value to use for calculation 18 Approximate Energy Requirements Using 2016 kcal/Kg Calculation Used for Recommendations Kcal/kg Additional Notes Pro needs 1-1.2g/kg adjBW: 95- 114g/day Fluid needs 1ml/kcal Nutrition Intervention Follow-Up By: 07/07/18 Additional Comments F/U: stable intakes, wt
[2018-07-06] MEDS: HumaLOG SUB-Q SCH ×2 (08:00→12:36)
[2018-07-06 08:11] VITALS: BP 146/53
[2018-07-06] MEDS: LANTUS SUB-Q SCH (09:53)
[2018-07-06] MEDS: APRESOLINE PO SCH (09:53)
[2018-07-06] MEDS: FLOMAX PO SCH (09:55)
[2018-07-06] MEDS: ZESTRIL PO SCH (09:55)
[2018-07-06] MEDS: ALLBEE WITH C PO SCH (09:55)
[2018-07-06] MEDS: HALFPRIN EC PO SCH (09:55)
[2018-07-06] MEDS: LOVENOX SUB-Q SCH (09:55)
[2018-07-06] MEDS: PLAVIX PO SCH (09:56)
[2018-07-06] MEDS: NORVASC PO SCH (09:56)
--- NOTE | 2018-07-06 11:01 | Discharge Summary ---
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 No apparent dysarthria or facial droop noted. He was admitted for suspected CVA and underwent scanning via CT head which showed no abnormalities, and later by MRI brain which showed areas consistent with recent infarcts in the parafalcine aspect of the left hemisphere. MRA showed a 50% blockage in the left MCA. Carotid Doppler showed less than 50% stenosis bilaterally. Echocardiogram showed mild dilation of the left ventricular chamber with ventricular hypertrophy, decreased left ventricular systolic function, EF 40-45%, mild aortic stenosis. He was treated for UTI with IV Rocephin. States it has been 3-4 days since last BM. Stroke labs were obtained and are as follows: 06/14/2018 A1c 11.5 06/15/2018 triglycerides 201, cholesterol 169, LDL 129, HDL 28 was present for the exam. Patient is fairly sedentary at home. Discussion was had with patient and concerning prognosis, secondary stroke prevention, diabetes control and foot check in order to avoid right lower extremity activation, recovery time line and what to expect on the rehabilitation unit. All questions were answered. Spoke with speech therapy prior to seeing the patient and he should have no issues with swallowing. Patient progress fairly well and participating with the therapy eagerly. Maintain good strides and manipulating his prosthesis as well as ambulating. He is doing well with minimal signs of loss of balance. Have discussed secondary stroke prevention with patient multiple times as well as with his . Patient will follow up as outpatient for physical therapy. Blood pressure and diabetes have been variable. Attempted to reduce dose of hydralazine due to this variability however his blood pressure did not tolerate it and we had returned him to that dose. We have had to hold some doses due to hypotension. Likewise with his glucose we've had to hold some doses of Lantus. I have informed him that he will need a quick follow-up with his primary care physician in order to facilitate further changes in his dosing based upon his values in his home environment. Also discussed that if he is feeling dizzy or if his systolic blood pressure is below 110 to hold his blood pressure medications. He states that he is working on getting a follow-up with his PCP the next week. Disposition: DC-01 TO HOME OR SELFCARE Time spent for discharge: >30 mins Core Measure Documentation - Palliative Care Palliative Care/ Comfort Measures: Not Applicable - Core Measures Any of the following diagnoses?: stroke - Stroke Discharge Requirements Statin for LDL = or >70 mg/dl on DC: Yes Anticoag for atrial fib/atrial flutter: Not Applicable Antithrombotic for ischemic stroke: Yes Exam - Physical Exam Narrative exam: MUSCULOSKELETAL SPECIALTY EXAM CONSTITUTIONAL: Well developed, well nourished, appropriately groomed. RIGHT hand dominant. RESPIRATORY: Clear to auscultation bilaterally, no increased work of breathing CARDIOVASCULAR: Regular Rate/ Rhythm, no swelling, edema or tenderness in BUE or BLE. All extremities warm. GI: + bowel sounds, soft, NTTP, nondistended. INTEGUMENTARY: Normal, no lesion, rash, masses or bruising noted in extremities. MUSCULOSKELETAL: BUE and RLE normal without defect, crepitus, subluxation, effusion, arthritic changes or TTP. Left BKA with prosthesis on SA EF WE EE FF FA HF KE ADF EHL APF R 5/5 5/5 5/5 5 /5 5/5 5/5 4-/5 4-/5 4-/5 4-/5 4-/5 L 5/5 5/5 5/5 5/5 5/5 5/5 5/5 5/5 5/5 5/5 5/5 ROM full Tone normal NEURO: CN II - XII grossly intact Sensation intact in all extremities without extinction. No tremor noted in 4 extremities. Naming and repetition intact. Follows 2 step commands. Aphasia not appreciated Dysarthria not appreciated Dysphagia not present Neglect not appreciated POSTURE and GAIT: Sitting posture good. Balance appears reasonable. Gait functional without LOB . PSYCH: Alert, orientated x3, affect appears euthymic. Insight appears intact. - Constitutional Vitals: Temp Pulse Resp BP Pulse Ox 36.7 C 59 L 19 146/53 96 07/06/18 08:09 07/06/18 08:09 07/06/18 08:09 07/06/18 08:09 07/06/18 08:09 - Allied Health Allied health notes reviewed: nursing, PT, OT Plan Activity: advance as tolerated, no driving until cleared by PCP, fall precautions Weight Bearing Status: Full Weight Bearing Diet: diabetic Special Instructions: record daily BP diary, record blood sugar diary, follow up in rehab Follow up with: DAPHNIE PUCKETT MD [Primary Care Provider] - 7 Days Prescriptions: AtorvaSTATin [Lipitor] 40 mg PO QHS 30 Days #30 tablet B Complex W/Vitamin C [Allbee with C] 1 each PO QDAY 30 Days #30 tablet hydrALAZINE [Apresoline TAB] 100 mg PO TID 30 Days #90 tab Aspirin EC [Aspirin Enteric Coated TAB] 81 mg PO QDAY 30 Days #30 tablet Tamsulosin [Flomax] 0.4 mg PO QDAY 30 Days #30 capsule Lispro Insulin [HumaLOG] 0 unit SUB-Q ACHS 30 Days units Insulin Glargine [Lantus VIAL] 30 units SUB-Q QAM 30 Days units amLODIPine [Norvasc] 10 mg PO QDAY 30 Days #30 tablet Clopidogrel [Plavix] 75 mg PO QDAY 30 Days tablet Lisinopril [Zestril TAB] 20 mg PO QDAY 30 Days #30 tablet
--- NOTE | 2018-07-06 13:46 | Progress Note ---
Assessment and Plan Assessment and plan: 68 YO Male with CAD, DM, HTN, HLD, BPH, CVA with RHP admitted to IRU. Consult placed by Dr. [place] for medical management of HTN, DM. Pt seen and evaluated in his room. Pt resting comfortably, sitting in a chair next to his eating dinner. Pt denies fever, chills, CP, Palpitations, NVD, Trauma, Productive cough, hematuria, headache, or recent ill contacts. Pt participating in physical therapy. No reported nursing events. --Acute CVA with right hemiparesis Patient received physical therapy occupational therapy rehabilitation --Hypertension; well controlled Continue current antihypertensives and when necessary medications --Type 2 diabetes mellitus; labile blood sugars Accu-Chek sliding scale coverage and ADA diet and insulin as needed --Dyslipidemia; stable on lipid-lowering medications --Asymptomatic bradycardia; resolved --DVT prophylaxis; Lovenox Patient is medically stable, agree with the discharge plan Patient advised to follow with primary care physician for his medical needs History Interval history: Patient is comfortable in no new complaints Patient is being discharged, No new complaints Visit signs reviewed Hospitalist Physical - Constitutional Vitals: Temp Pulse Resp BP Pulse Ox 98.0 F 59 L 19 146/53 96 07/06/18 08:09 07/06/18 08:09 07/06/18 08:09 07/06/18 08:09 07/06/18 08:09 General appearance: Present: no acute distress, well-nourished - EENT Eyes: Present: PERRL, EOM intact - Neck Neck: Present: supple, normal ROM - Respiratory Respiratory effort: normal Respiratory: bilateral: diminished, negative: rales, rhonchi, wheezing - Cardiovascular Rhythm: regular Heart Sounds: Present: S1 & S2 - Extremities Extremities: no ischemia, No edema - Integumentary Integumentary: Present: clear, warm - Psychiatric Psychiatric: appropriate mood/affect, cooperative - Neurologic Neurologic: other (acute CVA with right hemiparesise) Results - Labs CBC & Chem 7: 07/05/18 12:35 07/05/18 12:35 Labs: Laboratory Last Values WBC 6.1 K/mm3 (4.5-11.0) 07/05/18 12:35 RBC 3.71 M/mm3 (3.65-5.03) 07/05/18 12:35 Hgb 12.4 gm/dl (11.8-15.2) 07/05/18 12:35 Hct 36.8 % (35.5-45.6) 07/05/18 12:35 MCV 99 fl (84-94) H 07/05/18 12:35 MCH 34 pg (28-32) H 07/05/18 12:35 MCHC 34 % (32-34) 07/05/18 12:35 RDW 13.2 % (13.2-15.2) 07/05/18 12:35 Plt Count 234 K/mm3 (140-440) 07/05/18 12:35 Lymph % (Auto) 26.5 % (13.4-35.0) 06/24/18 08:40 [place] % (Auto) 8.1 % (0.0-7.3) H 06/24/18 08:40 Eos % (Auto) 5.1 % (0.0-4.3) H 06/24/18 08:40 Baso % (Auto) 1.3 % (0.0-1.8) 06/24/18 08:40 Lymph # 1.8 K/mm3 (1.2-5.4) 06/24/18 08:40 [place] # 0.6 K/mm3 (0.0-0.8) 06/24/18 08:40 Eos # 0.3 K/mm3 (0.0-0.4) 06/24/18 08:40 Baso # 0.1 K/mm3 (0.0-0.1) 06/24/18 08:40 Seg Neutrophils % 59.0 % (40.0-70.0) 06/24/18 08:40 Seg Neutrophils # 4.0 K/mm3 (1.8-7.7) 06/24/18 08:40 Sodium 138 mmol/L (137-145) 07/05/18 12:35 Potassium 4.2 mmol/L (3.6-5.0) 07/05/18 12:35 Chloride 101.9 mmol/L (98-107) 07/05/18 12:35 Carbon Dioxide 24 mmol/L (22-30) 07/05/18 12:35 16 mmol/L 07/05/18 12:35 BUN 13 mg/dL (9-20) 07/05/18 12:35 1.1 mg/dL (0.8-1.5) 07/05/18 12:35 Estimated GFR > 60 ml/min 07/05/18 12:35 12 % 07/05/18 12:35 Glucose 119 mg/dL (75-100) H 07/05/18 12:35 POC Glucose 112 (70-105) H 07/06/18 08:13 Calcium 8.7 mg/dL (8.4-10.2) 07/05/18 12:35 1.80 mg/dL (0.1-1.2) H 06/24/18 08:40 AST 18 units/L (5-40) 06/24/18 08:40 ALT 20 units/L (7-56) 06/24/18 08:40 69 units/L (35-129) 06/24/18 08:40 7.2 g/dL (6.3-8.2) 06/24/18 08:40 3.9 g/dL (3.9-5) 06/24/18 08:40 1.2 % 06/24/18 08:40 Active Medications - Current Medications Current Medications: Generic Name Dose Route Start Last Admin Trade Name Freq PRN Reason Stop Dose Admin Acetaminophen 650 mg 06/23/18 17:32 Tylenol PO Q4H PRN Pain, Mild (1-3) Amlodipine Besylate 10 mg 06/24/18 08:00 07/06/18 09:56 Norvasc PO 10 mg QDAY FRANCOIS Administration Aspirin 81 mg 06/24/18 08:00 07/06/18 09:55 Halfprin Ec PO 81 mg QDAY FRANCOIS Administration Atorvastatin Calcium 40 mg 06/23/18 21:00 07/05/18 22:36 Lipitor PO 40 mg QHS FRANCOIS Administration Bisacodyl 10 mg 06/24/18 13:37 Dulcolax [place] QDAY PRN Constipation Clopidogrel Bisulfate 75 mg 06/24/18 08:00 07/06/18 09:56 Plavix PO 75 mg QDAY FRANCOIS Administration Dextrose 50 ml 07/01/18 18:04 D50w (25gm) Syringe IV PRN PRN Hypoglycemia Enoxaparin Sodium 40 mg 06/24/18 08:00 07/06/18 09:55 Lovenox SUB-Q 40 mg QDAY FRANCOIS Administration Hydralazine HCl 10 mg 07/01/18 18:03 Apresoline IV Q6HR PRN Hypertension Hydralazine HCl 100 mg 07/02/18 14:00 07/06/18 09:53 Apresoline PO Not Given TID [facility] Insulin Glargine 30 units 06/24/18 10:00 07/06/18 09:53 Lantus SUB-Q Not Given QAM [facility] Insulin Human Lispro 0 unit 06/23/18 22:00 07/06/18 08:00 Humalog SUB-Q Not Given ACHS [facility] Protocol Lisinopril 20 mg 06/24/18 08:00 07/06/18 09:55 Zestril PO 20 mg QDAY FRANCOIS Administration Oxycodone/Acetaminophen 1 tab 06/23/18 17:32 Percocet 5/325 PO Q6H PRN Pain, Moderate (4-6) Polyethylene Glycol 17 gm 06/26/18 10:41 Miralax 3350 PO QDAY PRN Constipation Tamsulosin HCl 0.4 mg 06/24/18 08:00 07/06/18 09:55 Flomax PO 0.4 mg QDAY FRANCOIS Administration Vitamin B Complex/Vitamin C 1 each 06/24/18 08:00 07/06/18 09:55 Allbee With C PO 1 each QDAY FRANCOIS Administration Nutrition/Malnutrition Assess - Dietary Evaluation Nutrition/Malnutrition Findings: Nutrition Notes Start: 06/30/18 08:55 Freq: Status: Active Protocol: Document 06/30/18 08:56 ELISHA (Rec: 06/30/18 09:01 ELISHA [id number] [email or web address]) Nutrition Notes Need for Assessment generated from: LOS Initial or Follow up Brief Note Current Diagnosis Coronary Artery Disease, Diabetes,Hypertension, Hyperlipidemia Other Pertinent Diagnosis CVA with hemiparesis Current Diet Cardiac/Consistent CHO Height 5 ft 11 in Weight 112 kg [place] Body Weight (kg) 78.18 BMI 34.4 Weight change and time frame Adj Wt for (L) BKA: 119kg Adj BMI: 36.5 Weight Status Obese Subjective/Other Information Pt screened for LOS. He has consumed 79% of meals since admission. Percent of energy/protein needs met: 77% energy 70% pro Is patient on ventilator? No Is Patient Ambulatory and/or Out of Bed Yes REE-([facility]-ambulatory/OOB) [ 2485.769 NUTR.MSJOOB] Kcal/Kg value to use for calculation 18 Approximate Energy Requirements Using 2016 kcal/Kg Calculation Used for Recommendations Kcal/kg Additional Notes Pro needs 1-1.2g/kg adjBW: 95- 114g/day Fluid needs 1ml/kcal Nutrition Intervention Follow-Up By: 07/07/18 Additional Comments F/U: stable intakes, wt
== END 2018-07-06 14:50 | disposition home or self-care (01) | DRG 56 ==
LOC: UNDOADMIN 16:27 → 3A 16:27 → 3B 17:22
PROVIDERS: ADMIT Physical Medicine & Rehabilitation; ATTEND Physical Medicine & Rehabilitation
DX: I69.351 Hemiplegia and hemiparesis following cerebral infarction affecting right dominant side (principal); I63.9 Cerebral infarction, unspecified; E11.9 Type 2 diabetes mellitus without complications; I25.10 Atherosclerotic heart disease of native coronary artery without angina pectoris; N40.0 Benign prostatic hyperplasia without lower urinary tract symptoms; K59.00 Constipation, unspecified; I10 Essential (primary) hypertension; Z89.512 Acquired absence of left leg below knee; E78.5 Hyperlipidemia, unspecified
CPT/HCPCS: 36415; 80048; 80053; 82962; 85025; 85027; G0378; A9270-GY; J0360; J1650; J1815